=== PATIENT | male | born 1970 | race Caucasian/White ===

== ENCOUNTER 2016-06-18 14:03 | Inpatient (IN) | payer SELFPAY ==
[~2016-06-18] VITALS: Ht 180.3 cm; Wt 64.9 kg
[2016-06-18] VITALS (11 sets, daily range): BP systolic 91–127; BP diastolic 62–81
[2016-06-18] MEDS ORDERED: IV NORMAL SALINE 1000ML BAG 1,000 ML IV SCH (14:29)
[2016-06-18] MEDS ORDERED: INSULIN REGULAR 100 UNIT/ML 10ML VIAL. IV ONE (14:30)
[2016-06-18] MEDS ORDERED: IV NORMAL SALINE 1000ML BAG 1,000 ML IV ONE (14:30)
[2016-06-18] MEDS ORDERED: CALCIUM GLUCONATE 1,000 MG/10 ML VIAL IVP ONE (14:30)
[2016-06-18] MEDS ORDERED: DEXTROSE 50% 25 GM / 50ML DISP.SYRIN. IV ONE (14:30)
[2016-06-18 14:35] LABS: BASO # 0.2 x10^3/uL (0.0-0.2); BASO % 1 % (0-3); EOS % 0 % (0-3); HEMATOCRIT 41.9 % (39.0-53.0); HEMOGLOBIN 12.2 g/dL (13.0-17.5); LYMPH # 3.8 x10^3/uL (1.0-4.8); LYMPH % 21 % (24-48); MEAN CORPUSCULAR HEMOGLOBIN 24 pg (25-35); MEAN CORPUSCULAR HGB CONC 29 g/dL (31-37); MEAN CORPUSCULAR VOLUME 82 fL (79-100); MONO % 3 % (0-9); NEUT % 75 % (31-73); PLATELET COUNT 541 x10^3/uL (140-400); RED CELL DISTRIBUTION WIDTH 16.8 % (11.5-14.5); WHITE BLOOD COUNT 18.3 x10^3/uL (4.0-11.0)
[2016-06-18] MEDS ORDERED: SODIUM BICARBONATE VIAL 50 MEQ in IV DEXTROSE 5 %-0.45 % NACL 1,000 ML IV ONE (14:45)
--- NOTE | 2016-06-18 14:50 | RAD ---
Portable chest, 06/18/2016: History: Check tube placements An ET tube has its tip located 7 cm above the rosana. An NG tube extends into the proximal aspect of the stomach. A sidehole lies near the level of the GE junction. There is a moderate thoracic scoliosis. The heart size is normal. There are scattered nodular opacities in both lungs. There is no evidence of pleural fluid or pneumothorax. IMPRESSION: 1. Tube placements as described above. 2. Bilateral pulmonary nodules. Diagnostic considerations include metastatic disease or a multifocal infectious process such as septic emboli or fungal disease.
[2016-06-18 15:01] LABS: CREATININE 1.8 mg/dL (0.7-1.3); GFR 33.8
[2016-06-18 15:05] LABS: CALCIUM 12.6 mg/dL (8.5-10.1); POTASSIUM 7.6 mmol/L (3.5-5.1)
--- NOTE | 2016-06-18 15:10 | RAD ---
Indication found down. The head and cervical spine were evaluated. Images of the cervical spine were reformatted in the coronal and sagittal planes. No prior imaging is available. CT head: Findings The calvarium appears unremarkable. Visualized paranasal sinuses appear normal. In the right parietal temporal lobe there is a low-density mass measuring approximately 5.5 x 3.3 cm. There is some suggested minimal peripheral edema. There is associated mild effacement of the right lateral ventricle and there is slight right to left shift of approximately 4 mm. The etiology is unclear. Resolving hematoma, cystic neoplasm or abscess would be leading considerations. The finding does not have an acute appearance and is likely subacute to early chronic. An additional low-density mass occupying the left frontal lobe measuring 4 cm in greatest dimension is also seen. There is a possible mural nodule seen associated with this mass. A hyperdense component measuring 8 mm is seen associated with this left frontal lesion. The etiology here to is unclear. Resolving hematoma should be considered. Neoplastic disease or infection would also need to be considered. (Given the findings in the visualized chest neoplastic disease should be strongly considered). CT cervical spine: Findings. Imaging through the lung apices demonstrates multiple soft tissue masses in the visualized lung apices. The largest is at the left lung apex measuring 2.5 cm in greatest dimension with several smaller soft tissue nodules seen. The findings are very suggestive of neoplastic, likely metastatic, disease. There are some underlying emphysematous changes. Endotracheal and nasogastric tubes are noted. There are some degenerative changes in the cervical spine. An acute finding is seen. IMPRESSION: Low-density masses in the right temporal parietal and left frontal lobes as described. These findings do not have an acute appearance. Given the findings in the chest (suggesting neoplastic disease) metastatic disease should be strongly considered. Resolving hematomas or infection however are not excluded. No acute finding seen in the cervical spine PQRS Compliance Statement: One or more of the following individualized dose reduction techniques were utilized for this examination: 1. Automated exposure control 2. Adjustment of the mA and/or kV according to patient size 3. Use of iterative reconstruction technique
[2016-06-18] MEDS ORDERED: SODIUM BICARB ADULT 8.4% 50 MEQ/50 ML DISP.SYRIN. IV ONE (15:15)
[2016-06-18] MEDS ORDERED: DEXAMETHASONE SOD PHOS 20 MG/5 ML VIAL. IV ONE (15:15)
[2016-06-18] MEDS ORDERED: SODIUM BICARBONATE VIAL 150 MEQ in IV DEXTROSE 5 %-0.45 % NACL 1,000 ML IV ONE (15:15)
[2016-06-18 15:16] LABS: BARBITURATES NEG (NEG); BENZODIAZEPINES NEG (NEG); CANNABINOIDS NEG (NEG); COCAINE NEG (NEG); METHADONE NEG (NEG); OPIATES NEG (NEG); PHENCYCLIDINE NEG (NEG)
[2016-06-18 15:17] LABS: ETHANOL, URINE NEG (NEG)
[2016-06-18 15:19] LABS: HCO3 ABG 14 mmol/L (21-28); PCO2 ABG 31 mmHg (35-46); PH ABG 7.27 (7.35-7.45); PO2 ABG 70 mmHg (65-108); SAT O2 ABG 90 % (92-99)
[2016-06-18 15:24] LABS: INR 1.2 (0.8-1.1); PROTHROMBIN TIME PATIENT 14.7 SEC (11.7-14.0)
[2016-06-18 15:31] LABS: % BASOS 1 % (0-3); % EOS 1 % (0-5); PLT ESTIMATE INCREASED (ADEQUATE)
[2016-06-18 15:32] LABS: ANISOCYTOSIS SLIGHT; POIKILOCYTOSIS SLIGHT
[2016-06-18 15:33] LABS: HYPOCHROMIA SLIGHT
[2016-06-18] MEDS: LEVETIRACETAM 500 MG in IV NORMAL SALINE 100ML 100 ML IV SCH ×2 (15:38→21:59)
[2016-06-18] MEDS ORDERED: FENTANYL PF 100 MCG/2 ML VIAL. IV PRN (15:45)
[2016-06-18] MEDS ORDERED: LORAZEPAM 2 MG/ML VIAL IV ONE (15:45)
[2016-06-18] MEDS ORDERED: MIDAZOLAM PREMIX 100 ML IV ONE (15:45)
[2016-06-18] MEDS ORDERED: FENTANYL PF 100 MCG/2 ML VIAL. IV ONE (15:45)
[2016-06-18] MEDS ORDERED: ONDANSETRON PF 4 MG/2 ML VIAL. IV PRN ×2 (15:45→18:30)
--- NOTE | 2016-06-18 15:52 | PHYS DOC ---
Past Medical History Past Medical History: Unknown Past Surgical History: Other Additional Past Surgical Histo: UNKNOWN Alcohol Use: None Additional Information: UNKNOWN Adult General Chief Complaint Chief Complaint: SEIZURE HPI HPI This is a 45-year-old male who initially is admitted after being found down for an unknown amount of time with what appeared to be a head injury. Patient was using agonal respirations per EMS and was unresponsive. He arrived in agonal respirations and upon arrival had a seizure episode followed by agonal respirations and eventual respiratory arrest. Patient was immediately intubated and ACLS protocols were used after approximately 5 minutes of CPR, patient had a return of spontaneous circulation. Patient is currently unresponsive at this time and cannot provide any adequate history. Review of Systems Review of Systems A 10 point review of systems is unable to be obtained secondary to the patient' s underlying mental status. Current Medications Current Medications Current Medications Medications (Trade) Dose Ordered Sig/Heydi Start Time Stop Time Status Last Admin Dose Admin Calcium Gluconate 1000 mg 1,000 mg 1X ONCE 06/18/16 14:30 06/18/16 14:39 DC 06/18/16 15:30 1,000 MG Dexamethasone Sodium Phosphate (Decadron) 10 mg 1X ONCE 06/18/16 15:15 06/18/16 15:22 DC 06/18/16 15:51 10 MG Dextrose 25 gm 1X ONCE 06/18/16 14:30 06/18/16 14:39 DC 06/18/16 15:26 25 GM Fentanyl Citrate 50 mcg 50 mcg PRN Q2HR PRN 06/18/16 15:45 06/19/16 15:44 Insulin Human Regular (Novolin R Vial) 10 unit 1X ONCE 06/18/16 14:30 06/18/16 14:39 DC 06/18/16 15:29 10 UNIT Lorazepam 1 mg 1 mg 1X ONCE 06/18/16 15:45 06/18/16 15:46 DC 06/18/16 14:07 1 MG Midazolam HCl (Versed 100mg/ 100ml Premix) 100 ml @ 0 mls/hr 1X ONCE 06/18/16 15:45 06/18/16 15:46 DC 06/18/16 15:59 2 MLS/HR Ondansetron HCl (Zofran) 4 mg PRN Q8HRS PRN 06/18/16 15:45 06/19/16 15:44 Sodium Bicarbonate 50 meq/Dextrose/ Sodium Chloride 1,050 ml @ 125 mls/hr 1X ONCE 06/18/16 14:45 06/18/16 23:08 06/18/16 15:25 125 MLS/HR Sodium Bicarbonate/ Dextrose/Sodium Chloride (Iv D5% - 1/2 NS) 1,150 ml @ 125 mls/hr 1X ONCE 06/18/16 15:15 06/19/16 00:26 06/18/16 15:15 125 MLS/HR Sodium Bicarbonate 50 meq 1X ONCE 06/18/16 15:15 06/18/16 15:22 DC Sodium Chloride (Iv Sodium Chloride 0.9% 1000ml Bag) 1,000 ml @ 150 mls/hr Q6H40M 06/18/16 15:40 06/19/16 15:39 06/18/16 17:25 150 MLS/HR Allergies Allergies Physical Exam Physical Exam Constitutional: Well developed, well nourished, no acute distress, non-toxic appearance. [] HENT: Normocephalic, atraumatic, bilateral external ears normal, oropharynx moist, no oral exudates, nose normal. [] Eyes: PERRLA, EOMI, conjunctiva normal, no discharge. [] Neck: Normal range of motion, no tenderness, supple, no stridor. [] Cardiovascular:Heart rate regular rhythm, no murmur [] Lungs & Thorax: Bilateral breath sounds clear to auscultation [] Abdomen: Bowel sounds normal, soft, no tenderness, no masses, no pulsatile masses. [] Skin: Warm, dry, no erythema, no rash. [] Back: No tenderness, no CVA tenderness. [] Extremities: No tenderness, no cyanosis, no clubbing, ROM intact, no edema. [] Neurologic: Alert and oriented X 3, normal motor function, normal sensory function, no focal deficits noted. [] Psychologic: Affect normal, judgement normal, mood normal. [] Current Patient Data Vital Signs Vital Signs Date Time Temp Pulse Resp B/P Pulse Ox O2 Delivery O2 Flow Rate FiO2 06/18/16 15:48 104 26 101/58 93 Ventilator 50 06/18/16 14:04 97.9 97.9 Lab Values Laboratory Tests Test 06/18/16 14:20 06/18/16 14:25 06/18/16 14:26 06/18/16 14:45 White Blood Count 18.3x10^3/uL (4.0-11.0) H Red Blood Count 5.10x10^6/uL (4.30-5.70) Hemoglobin 12.2g/dL (13.0-17.5) L Hematocrit 41.9% (39.0-53.0) Mean Corpuscular Volume 82fL (79-100) Mean Corpuscular Hemoglobin 24pg (25-35) L Mean Corpuscular Hemoglobin Concent 29g/dL (31-37) L Red Cell Distribution Width 16.8% (11.5-14.5) H Platelet Count 541x10^3/uL (140-400) H Neutrophils (%) (Auto) 75% (31-73) H Lymphocytes (%) (Auto) 21% (24-48) L Monocytes (%) (Auto) 3% (0-9) Eosinophils (%) (Auto) 0% (0-3) Basophils (%) (Auto) 1% (0-3) Neutrophils # (Auto) 13.6x10^3uL (1.8-7.7) H Lymphocytes # (Auto) 3.8x10^3/uL (1.0-4.8) Monocytes # (Auto) 0.6x10^3/uL (0.0-1.1) Eosinophils # (Auto) 0.1x10^3/uL (0.0-0.7) Basophils # (Auto) 0.2x10^3/uL (0.0-0.2) Segmented Neutrophils % 62% (35-66) Band Neutrophils % 6% (0-9) Lymphocytes % 27% (24-48) Monocytes % 3% (0-10) Eosinophils % 1% (0-5) Basophils % 1% (0-3) Platelet Estimate Increased (ADEQUATE) Hypochromasia Slight Poikilocytosis Slight Anisocytosis Slight Prothrombin Time 14.7SEC (11.7-14.0) H Prothrombin Time INR 1.2 (0.8-1.1) H Sodium Level 146mmol/L (136-145) H Potassium Level 7.6mmol/L (3.5-5.1) *H Chloride Level 106mmol/L (98-107) Carbon Dioxide Level 19mmol/L (21-32) L Anion Gap 21 (6-14) H 23mmol/L (6-14) H Blood Urea Nitrogen 14mg/dL (8-26) Creatinine 1.8mg/dL (0.7-1.3) H Estimated GFR (Cockcroft-Gault) 33.8 Glucose Level 259mg/dL (70-99) H 245mg/dL (70-99) H Calcium Level 12.6mg/dL (8.5-10.1) *H Creatine Kinase 40U/L (39-308) Troponin I Quantitative < 0.017ng/mL (0.000-0.055) POC Troponin I 0.01ng/ml (<0.08) POC Hemoglobin 14.3g/dL (14-18) POC Hematocrit 42% (37-52) POC Sodium 148mmol/L (135-145) H POC Potassium 7.0mmol/L (3.5-5.0) H POC Chloride 113mmol/L (98-110) H POC Total CO2 20mmol/L (23-32) L POC Blood Urea Nitrogen 13mg/dL (8-26) POC Creatinine 1.2mg/dL (0.5-1.4) POC Ionized Calcium (Yuly) 1.52mmol/L (1.13-1.32) H Urine Opiates Screen Neg (NEG) Urine Methadone Screen Neg (NEG) Urine Barbiturates Neg (NEG) Urine Phencyclidine Screen Neg (NEG) Urine Amphetamine/Methamphetamine Neg (NEG) Urine Benzodiazepines Screen Neg (NEG) Urine Cocaine Screen Neg (NEG) Urine Cannabinoids Screen Neg (NEG) Urine Ethyl Alcohol Neg (NEG) Test 06/18/16 15:20 O2 Saturation 90% (92-99) L Arterial Blood pH 7.27 (7.35-7.45) L Arterial Blood pCO2 at Patient Temp 31mmHg (35-46) L Arterial Blood pO2 at Patient Temp 70mmHg (65-108) Arterial Blood HCO3 14mmol/L (21-28) L Arterial Blood Base Excess -12mmol/L (-3-3) L FiO2 40.0 Laboratory Tests 06/18/16 14:20 Laboratory Tests 06/18/16 14:20 06/18/16 14:26 EKG EKG EKG as interpreted by mi shows a sinus tachycardia with rate of 116 bpm with what appear to be some mild peaked T waves. There are no obvious ischemic findings. Intervals are normal. EKG does not meet STEMI criteria. Radiology/Procedures Radiology/Procedures One view of the chest as interpreted by the radiologist shows an ET tube located 7 cm above the rosana and an NG tube extending into the proximal aspect of the stomach. There are bilateral pulmonary nodules and diagnostic considerations include metastatic disease or a multifocal infectious process such as septic emboli or fungal disease. This was as interpreted by the radiologist. CT of the head and cervical spine without contrast demonstrated the following: Indication found down. The head and cervical spine were evaluated. Images of the cervical spine were reformatted in the coronal and sagittal planes. No prior imaging is available. CT head: Findings The calvarium appears unremarkable. Visualized paranasal sinuses appear normal. In the right parietal temporal lobe there is a low-density mass measuring approximately 5.5 x 3.3 cm. There is some suggested minimal peripheral edema. There is associated mild effacement of the right lateral ventricle and there is slight right to left shift of approximately 4 mm. The etiology is unclear. Resolving hematoma, cystic neoplasm or abscess would be leading considerations. The finding does not have an acute appearance and is likely subacute to early chronic. An additional low-density mass occupying the left frontal lobe measuring 4 cm in greatest dimension is also seen. There is a possible mural nodule seen associated with this mass. A hyperdense component measuring 8 mm is seen associated with this left frontal lesion. The etiology here to is unclear. Resolving hematoma should be considered. Neoplastic disease or infection would also need to be considered. (Given the findings in the visualized chest neoplastic disease should be strongly considered). CT cervical spine: Findings. Imaging through the lung apices demonstrates multiple soft tissue masses in the visualized lung apices. The largest is at the left lung apex measuring 2.5 cm in greatest dimension with several smaller soft tissue nodules seen. The findings are very suggestive of neoplastic, likely metastatic, disease. There are some underlying emphysematous changes. Endotracheal and nasogastric tubes are noted. There are some degenerative changes in the cervical spine. An acute finding is seen. IMPRESSION: Low-density masses in the right temporal parietal and left frontal lobes as described. These findings do not have an acute appearance. Given the findings in the chest (suggesting neoplastic disease) metastatic disease should be strongly considered. Resolving hematomas or infection however are not excluded. No acute finding seen in the cervical spine PQRS Compliance Statement: One or more of the following individualized dose reduction techniques were utilized for this examination: 1. Automated exposure control 2. Adjustment of the mA and/or kV according to patient size 3. Use of iterative reconstruction technique Course & Med Decision Making Course & Med Decision Making Pertinent Labs and Imaging studies reviewed. 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 The most likely sequence of events is that the patient had an ongoing mass in his brain, then had a seizure episode today in which he was found down for prolonged period of time. This is evidenced by the nature of the mass seen on CT as well as his chest film which is consistent with possible metastatic disease. Patient presented with respiratory failure and has obvious metabolic acidosis with a hyperkalemia after being found down from an unknown period of time. His EKG showed possible peaked T waves. Multiple amps of bicarbonate were given and a bicarbonate drip was started. Patient is given several fluid boluses as well to resolve his ongoing acidosis. Patient was given IV calcium, IV dextrose, IV insulin for his hyperkalemia. This was all consultation with the hebrew teacher, Dr. Ronquillo, who agreed with this plan. The neurosurgeon, Dr. Mack, was also paged and the case was discussed and he stated to load the patient with 10 of Decadron and to continue Decadron 4 mg every 6 hours. The case was also discussed with the neurologist, Dr. Dailey, who agreed to load the patient with IV Keppra for seizure prophylaxis. Patient was started on IV Versed drip and was given several doses of fentanyl as well for sedation. Patient had an arterial blood gas drawn that showed a acidosis with a pH of 7.27 and a PCO2 of 31 with a PO2 of 69. His bicarbonate was decreased at 14 which is consistent with a metabolic acidosis. He was admitted to the ICU after discussing the case with the hospitalist, Dr. Dunbar, who agreed with this assessment and plan. Approximately 60 minutes of critical care time were used in consultation with specialists. Dragon Disclaimer Dragon Disclaimer This electronic medical record was generated, in whole or in part, using a voice recognition dictation system. Critical Care Time Critical care time was 60 minutes exclusive of procedures. Intubation Procedure Intub Indication: Respiratory failure Consent: Unable to give consent due to emergent nature. Medications Used: see nursing note Procedure: The patient was placed in the appropriate position. Intubation was performed using direct laryngoscopy using a 8.0 endotracheal tube. ET tube adequately secured. Initial confirmation of placement included bilateral breath sounds, tube fogging, adequate chest rise, adequate pulse oximetry reading. A chest x-ray to verify correct placement of the tube showed appropriate tube position. The patient tolerated the procedure well. Complications: none. Departure Departure Impression: Primary Impression: Mass, brain Additional Impressions: Respiratory failure Acidosis Hyperkalemia Disposition: ADMITTED INPATIENT Admitting Physician: Farhan Dunbar Condition: CRITICAL Referrals: UNKNOWN PCP NAME (PCP) Problem Qualifiers TERESA RAE DO Jun 18, 2016 15:52
--- NOTE | 2016-06-18 15:57 | PDOC2 ---
NEUROLOGY CONSULT Date of Admission Date of Admission DATE: 06/18/16 TIME: 15:51 Reason for Consult Reason for Consult: seizure Referring Physician Referring Physician: Dr. Mcginnis Source Source: Chart review History of Present Illness History of Present Illness The patient was found down, unresponsive at an apartment complex. He had a seizure in the emergency department and was intubated. CT is abnormal as reviewed below. His further identity and history is unknown at this time. Family History Family History: No pertinent hx (unobtainable) Social History Social History unobtainable Current Medications Current Medications Current Medications Sodium Chloride 1,000 ml @ 1,000 mls/hr 1X ONCE IV Last administered on 14:51; Start 06/18/16 at 14:30; Stop 06/18/16 at 15:29; Status DC Sodium Chloride (Iv Sodium Chloride 0.9% 1000ml Bag) 1,000 ml @ 1,000 mls/hr Q1H IV ; Start 06/18/16 at 14:29; Stop 06/18/16 at 15:28; Status DC Dextrose 25 gm 1X ONCE IV Last administered on 06/18/16 15:26; Start at 14:30; Stop 06/18/16 at 14:39; Status DC Insulin Human Regular (Novolin R Vial) 10 unit 1X ONCE IV Last administered on 06/18/16 15:29; Start 06/18/16 at 14:30; Stop 06/18/16 at 14:39; Status DC Calcium Gluconate 1000 mg 1,000 mg 1X ONCE IVP Last administered on 06/18/16 15:30; Start 06/18/16 at 14:30; Stop 06/18/16 at 14:39; Status DC Sodium Bicarbonate 50 meq/Dextrose/ Sodium Chloride 1,050 ml @ 125 mls/hr 1X ONCE IV Last administered on 06/18/16 15:25; Start 06/18/16 at 14:45; Stop at 23:08 Sodium Bicarbonate/ Dextrose/Sodium Chloride (Iv D5% - 1/2 NS) 1,150 ml @ 125 mls/hr 1X ONCE IV Last administered on 06/18/16 15:15; Start 06/18/16 at 15: 15; Stop 06/19/16 at 00:26 Sodium Bicarbonate 50 meq 1X ONCE IV ; Start 06/18/16 at 15:15; Stop 06/18/16 at 15:22; Status DC Dexamethasone Sodium Phosphate (Decadron) 10 mg 1X ONCE IV ; Start 06/18/16 at 15:15; Stop 06/18/16 at 15:22; Status DC Dexamethasone Sodium Phosphate 4 mg 4 mg Q6HRS IV ; Start 06/18/16 at 18:00 Levetiracetam/ Sodium Chloride (Keppra/Iv Sodium Chloride 0.9% 100ml) 105 ml @ 400 mls/hr Q12HR IV ; Start 06/18/16 at 16:00 Lorazepam (Ativan) 1 mg 1X ONCE IV ; Start 06/18/16 at 15:45; Stop 06/18/16 at 15:46; Status DC Fentanyl Citrate 50 mcg 50 mcg 1X ONCE IV ; Start 06/18/16 at 15:45; Stop 06/18 at 15:46; Status DC Midazolam HCl (Versed 100mg/ 100ml Premix) 100 ml @ 0 mls/hr 1X ONCE IV ; Start 06/18/16 at 15:45; Stop 06/18/16 at 15:46; Status DC Ondansetron HCl (Zofran) 4 mg PRN Q8HRS PRN IV NAUSEA/VOMITING; Start 06/18/16 at 15:45; Stop 06/19/16 at 15:44; Status UNV Fentanyl Citrate 50 mcg 50 mcg PRN Q2HR PRN IV PAIN; Start 06/18/16 at 15:45; Stop 06/19/16 at 15:44; Status UNV Sodium Chloride (Iv Sodium Chloride 0.9% 1000ml Bag) 1,000 ml @ 150 mls/hr Q6H40M IV ; Start 06/18/16 at 15:40; Stop 06/19/16 at 15:39; Status UNV Allergies Allergies: Coded Allergies: Unable to Assess (Unverified , 06/18/16) ROS Review of System Unobtainable Physical Exam Physical Examination PHYSICAL EXAMINATION: Vital signs: see above. General appearance is normal and in no acute distress. HEENT: Normocephalic; abrasion lateral to left orbit. Eyes, nose, ears, and throat are unremarkable. Neck is supple. No lymphadenopathy. No bruits are heard over the carotid artery. No crepitus. NEUROLOGIC: Intubated, in emergency department. Pupils sluggishly reactive. No spontaneous extraocular movements. No pain response. Posturing noted. Vitals VITALS Vital Signs Date Time Temp Pulse Resp B/P Pulse Ox O2 Delivery O2 Flow Rate FiO2 06/18/16 14:43 97 Ventilator 06/18/16 14:04 97.9 72 02/07 97.9 Labs Labs Laboratory Tests Test 06/18/16 14:20 06/18/16 14:25 06/18/16 14:26 06/18/16 14:45 White Blood Count 18.3x10^3/uL (4.0-11.0) Red Blood Count 5.10x10^6/uL (4.30-5.70) Hemoglobin 12.2g/dL (13.0-17.5) Hematocrit 41.9% (39.0-53.0) Mean Corpuscular Volume 82fL (79-100) Mean Corpuscular Hemoglobin 24pg (25-35) Mean Corpuscular Hemoglobin Concent 29g/dL (31-37) Red Cell Distribution Width 16.8% (11.5-14.5) Platelet Count 541x10^3/uL (140-400) Neutrophils (%) (Auto) 75% (31-73) Lymphocytes (%) (Auto) 21% (24-48) Monocytes (%) (Auto) 3% (0-9) Eosinophils (%) (Auto) 0% (0-3) Basophils (%) (Auto) 1% (0-3) Neutrophils # (Auto) 13.6x10^3uL (1.8-7.7) Lymphocytes # (Auto) 3.8x10^3/uL (1.0-4.8) Monocytes # (Auto) 0.6x10^3/uL (0.0-1.1) Eosinophils # (Auto) 0.1x10^3/uL (0.0-0.7) Basophils # (Auto) 0.2x10^3/uL (0.0-0.2) Segmented Neutrophils % 62% (35-66) Band Neutrophils % 6% (0-9) Lymphocytes % 27% (24-48) Monocytes % 3% (0-10) Eosinophils % 1% (0-5) Basophils % 1% (0-3) Platelet Estimate Increased (ADEQUATE) Hypochromasia Slight Poikilocytosis Slight Anisocytosis Slight Prothrombin Time 14.7SEC (11.7-14.0) Prothromb Time International Ratio 1.2 (0.8-1.1) Sodium Level 146mmol/L (136-145) Potassium Level 7.6mmol/L (3.5-5.1) Chloride Level 106mmol/L (98-107) Carbon Dioxide Level 19mmol/L (21-32) Anion Gap 21 (6-14) 23mmol/L (6-14) Blood Urea Nitrogen 14mg/dL (8-26) Creatinine 1.8mg/dL (0.7-1.3) Estimated GFR (Cockcroft-Gault) 33.8 Glucose Level 259mg/dL (70-99) 245mg/dL (70-99) Calcium Level 12.6mg/dL (8.5-10.1) Creatine Kinase 40U/L (39-308) Troponin I Quantitative < 0.017ng/mL (0.000-0.055) Bedside Troponin I 0.01ng/ml (<0.08) Bedside Hemoglobin 14.3g/dL (14-18) Bedside Hematocrit 42% (37-52) Bedside Sodium 148mmol/L (135-145) Bedside Potassium 7.0mmol/L (3.5-5.0) Bedside Chloride 113mmol/L (98-110) Bedside Total CO2 20mmol/L (23-32) Bedside Blood Urea Nitrogen 13mg/dL (8-26) Bedside Creatinine 1.2mg/dL (0.5-1.4) Bedside Ionized Calcium (Yuly) 1.52mmol/L (1.13-1.32) Urine Opiates Screen Neg (NEG) Urine Methadone Screen Neg (NEG) Urine Barbiturates Neg (NEG) Urine Phencyclidine Screen Neg (NEG) Urine Amphetamine/Methamphetamine Neg (NEG) Urine Benzodiazepines Screen Neg (NEG) Urine Cocaine Screen Neg (NEG) Urine Cannabinoids Screen Neg (NEG) Urine Ethyl Alcohol Neg (NEG) Test 06/18/16 15:20 O2 Saturation 90% (92-99) Arterial Blood pH 7.27 (7.35-7.45) Arterial Blood pCO2 at Patient Temp 31mmHg (35-46) Arterial Blood pO2 at Patient Temp 70mmHg (65-108) Arterial Blood HCO3 14mmol/L (21-28) Arterial Blood Base Excess -12mmol/L (-3-3) FiO2 40.0 Laboratory Tests Test 06/18/16 14:20 06/18/16 14:25 06/18/16 14:26 06/18/16 14:45 White Blood Count 18.3x10^3/uL (4.0-11.0) Red Blood Count 5.10x10^6/uL (4.30-5.70) Hemoglobin 12.2g/dL (13.0-17.5) Hematocrit 41.9% (39.0-53.0) Mean Corpuscular Volume 82fL (79-100) Mean Corpuscular Hemoglobin 24pg (25-35) Mean Corpuscular Hemoglobin Concent 29g/dL (31-37) Red Cell Distribution Width 16.8% (11.5-14.5) Platelet Count 541x10^3/uL (140-400) Neutrophils (%) (Auto) 75% (31-73) Lymphocytes (%) (Auto) 21% (24-48) Monocytes (%) (Auto) 3% (0-9) Eosinophils (%) (Auto) 0% (0-3) Basophils (%) (Auto) 1% (0-3) Neutrophils # (Auto) 13.6x10^3uL (1.8-7.7) Lymphocytes # (Auto) 3.8x10^3/uL (1.0-4.8) Monocytes # (Auto) 0.6x10^3/uL (0.0-1.1) Eosinophils # (Auto) 0.1x10^3/uL (0.0-0.7) Basophils # (Auto) 0.2x10^3/uL (0.0-0.2) Segmented Neutrophils % 62% (35-66) Band Neutrophils % 6% (0-9) Lymphocytes % 27% (24-48) Monocytes % 3% (0-10) Eosinophils % 1% (0-5) Basophils % 1% (0-3) Platelet Estimate Increased (ADEQUATE) Hypochromasia Slight Poikilocytosis Slight Anisocytosis Slight Prothrombin Time 14.7SEC (11.7-14.0) Prothromb Time International Ratio 1.2 (0.8-1.1) Sodium Level 146mmol/L (136-145) Potassium Level 7.6mmol/L (3.5-5.1) Chloride Level 106mmol/L (98-107) Carbon Dioxide Level 19mmol/L (21-32) Anion Gap 21 (6-14) 23mmol/L (6-14) Blood Urea Nitrogen 14mg/dL (8-26) Creatinine 1.8mg/dL (0.7-1.3) Estimated GFR (Cockcroft-Gault) 33.8 Glucose Level 259mg/dL (70-99) 245mg/dL (70-99) Calcium Level 12.6mg/dL (8.5-10.1) Creatine Kinase 40U/L (39-308) Troponin I Quantitative < 0.017ng/mL (0.000-0.055) Bedside Troponin I 0.01ng/ml (<0.08) Bedside Hemoglobin 14.3g/dL (14-18) Bedside Hematocrit 42% (37-52) Bedside Sodium 148mmol/L (135-145) Bedside Potassium 7.0mmol/L (3.5-5.0) Bedside Chloride 113mmol/L (98-110) Bedside Total CO2 20mmol/L (23-32) Bedside Blood Urea Nitrogen 13mg/dL (8-26) Bedside Creatinine 1.2mg/dL (0.5-1.4) Bedside Ionized Calcium (Yuly) 1.52mmol/L (1.13-1.32) Urine Opiates Screen Neg (NEG) Urine Methadone Screen Neg (NEG) Urine Barbiturates Neg (NEG) Urine Phencyclidine Screen Neg (NEG) Urine Amphetamine/Methamphetamine Neg (NEG) Urine Benzodiazepines Screen Neg (NEG) Urine Cocaine Screen Neg (NEG) Urine Cannabinoids Screen Neg (NEG) Urine Ethyl Alcohol Neg (NEG) Test 06/18/16 15:20 O2 Saturation 90% (92-99) Arterial Blood pH 7.27 (7.35-7.45) Arterial Blood pCO2 at Patient Temp 31mmHg (35-46) Arterial Blood pO2 at Patient Temp 70mmHg (65-108) Arterial Blood HCO3 14mmol/L (21-28) Arterial Blood Base Excess -12mmol/L (-3-3) FiO2 40.[address] head: Findings The calvarium appears unremarkable. Visualized paranasal sinuses appear normal. In the right parietal temporal lobe there is a low-density mass measuring approximately 5.5 x 3.3 cm. There is some suggested minimal peripheral edema. There is associated mild effacement of the right lateral ventricle and there is slight right to left shift of approximately 4 mm. The etiology is unclear. Resolving hematoma, cystic neoplasm or abscess would be leading considerations. The finding does not have an acute appearance and is likely subacute to early chronic. An additional low-density mass occupying the left frontal lobe measuring 4 cm in greatest dimension is also seen. There is a possible mural nodule seen associated with this mass. A hyperdense component measuring 8 mm is seen associated with this left frontal lesion. The etiology here to is unclear. Resolving hematoma should be considered. Neoplastic disease or infection would also need to be considered. (Given the findings in the visualized chest neoplastic disease should be strongly considered). CT cervical spine: Findings. Imaging through the lung apices demonstrates multiple soft tissue masses in the visualized lung apices. The largest is at the left lung apex measuring 2.5 cm in greatest dimension with several smaller soft tissue nodules seen. The findings are very suggestive of neoplastic, likely metastatic, disease. There are some underlying emphysematous changes. Endotracheal and nasogastric tubes are noted. There are some degenerative changes in the cervical spine. An acute finding is seen. IMPRESSION: Low-density masses in the right temporal parietal and left frontal lobes as described. These findings do not have an acute appearance. Given the findings in the chest (suggesting neoplastic disease) metastatic disease should be strongly considered. Resolving hematomas or infection however are not excluded. No acute finding seen in the cervical spine Assessment/Plan Assessment/Plan Impression: Brain mets. Also consider infectious process or multiple old strokes, unlikely Recommendations: IV levetiracetam Decadron Neurosurgery following, discussed with Dr. Mack Once stabilized, CT of chest/abdomen/pelvis, brain MRI ICU care Thank you for letting me help with the patient's care. JERI HAYES MD Jun 18, 2016 15:57
[2016-06-18] MEDS: IV NORMAL SALINE 1000ML BAG 1,000 ML IV SCH ×2 (17:25→21:59)
--- NOTE | 2016-06-18 18:15 | ACF ---
Admission Forms Criteria INTENSIVE CARE UNIT ADMISSION Intensive Care Admission Guidelines ( Place 'X' for any and all applicable criteria): Admission to ICU may be indicated when need is demonstrated by ANY ONE of the following (1)(2)(3)(4)(5)(6)(7)(8)(9) : [ ]I. Vital sign abnormalities, including ANY ONE of the following: [ ]a) Systolic arterial pressure less than 90 mm Hg, or 20 mm Hg below the patient's usual pressure [ ]b) Diastolic arterial pressure greater than 120 mm Hg [ ]c) Mean arterial pressure less than 70 mm Hg [A] [ ]d) Pulse less than 40 or greater than 140 beats per minute (in adult) [ ]e) Respiratory rate greater than 35 or less than 8 breaths per minute [X]II. Laboratory findings (new), including ANY ONE of the following (10): [ ]a) Saturation of arterial oxygen less than 88% or partial pressure of oxygen less than 60 mm Hg (8.0 kPa) despite oxygen supplementation [ ]b) Rising partial pressure of carbon dioxide with respiratory acidosis [ ]c) pH less than 7.2 or greater than 7.65 [ ]d) Serum glucose greater than 800 mg/dL (44.4 mmol/L) [ ]e) Serum sodium less than 110 mEq/L (mmol/L) or greater than 160 mEq/L (mmol/L) [X]f) Serum potassium less than 2 mEq/L (mmol/L) or greater than 7 mEq /L (mmol/L) [ ]g) Serum calcium greater than 15 mg/dL (3.75 mmol/L) [ ]h) Serum phosphorus less than 1 mg/dL (0.32 mmol/L) [ ]i) Toxic drug level or poisoning causing or likely to cause neurologic or Hemodynamic instability [ ]j) Less severe laboratory abnormalities contributing to ANY ONE of the following: [ ]i) Seizure [ ]ii) Altered mental status [ ]iii) Muscle weakness [ ]iv) Arrhythmias [ ]v) Hemodynamic instability [ ]vi) Other significant clinical manifestations [ ]III. Electrocardiogram (or cardiac monitoring) findings, including ANY ONE of the following: [ ]a) Inherently unstable or life-threatening arrhythmia (eg, sustained ventricular tachycardia, ventricular fibrillation, asystole) [ ]b) Arrhythmia causing severe hypotension (eg, bradycardia, tachycardia) [ ]c) Complete heart block causing severe hypotension [ ]d) Other findings indicative of a need for intensive care (eg , [place]) [ ]IV.Physical findings, including ANY ONE of the following: [ ]a) Threatened airway [ ]b) Sudden altered mental status [ ]c) Repeated or prolonged seizures [ ]d) Coma [ ]e) New-onset anuria (urine output <0.1 mL/kg/hr over 4 h) [ ]f) Cyanosis (new) [ ]g) Cardiac tamponade [ ]h) Status post respiratory or cardiac arrest [ ]i) Severe branham (eg, partial thickness branham over more than 10% of body surface, third-degree branham) [ ]j) Findings consistent with abdominal emergency (eg, peritoneal signs) [ ]V.Imaging findings, such as dissecting aneurysm or ruptured viscus [ ].Specific intervention or monitoring needed, as indicated by ANY ONE of the following: [ ]a) New need for assisted ventilation, invasive or noninvasive(11) [ ]b) New need for intubation (eg, to protect airway) [ ]c) New tracheostomy (less than 48 hours old) [ ]d) Hourly vital signs or neurologic checks [ ]e) Pulmonary artery line monitoring needed [ ]f) Continuous arterial line monitoring needed [ ]g) Continuous IV vasoactive drugs [ ]h) Continuous IV antiarrhythmics [ ]i) Large volume IV fluid resuscitation (eg, greater than 6 L per day ) [ ]j) Large or rapid transfusion needs (eg, more than 6 units within 24 hours) [ ]k) High-risk IV treatment, such as bolus IV medicatns or mannitol infusion [ ]l) Acute cardiac pacing [ ]m) Intra-aortic balloon pump [ ]n) Ventricular assist device [ ]o) Cardioversion [ ]p) Pericardiocentesis [ ]q) Hemodialysis in unstable patient [ ]r) Continuous renal replacement therapy (eg, continuous veno-venous hemofiltration) [ ]s) Peritoneal dialysis initiation [ ]t) Emergency bronchoscopic therapy (eg, for hemoptysis) [ ]u) Emergency endoscopic therapy for bleeding [ ]v) Balloon tamponade for variceal bleeding [ ]w) Intracranial pressure monitoring or tissue oxygen monitoring [ ]x) Ventriculostomy monitoring [ ]y) Treatment of ongoing seizures [ ]z) Induced hypothermia or coma [ ]aa) Ongoing frequent testing and treatment for acute conditions, including ANY ONE of the following: [ ]i) Correction of severe metabolic acidosis/ alkalosis [ ]ii). Severe fluid overload [ ]iii) Cerebral edema [ ]iv) Monitoring or suctioning for respiratory insufficiency or acidosis [ ]v) Monitoring for active bleeding [ ]bb) Rapid desensitization for high-risk hypersensitivity reaction to required medication (eg, penicillin)(12) [ ]cc) Other need for treatment or monitoring not available outside the ICU [ ]VII.Cardiology diagnoses or procedures, including ANY ONE of the following (13)(14)(15)(16)(17): [ ]a) Chest pain with ANY ONE of the following: [ ]i) Hemodynamic instability [ ]ii) Suspicion of diagnoses needing ICU care (eg, aortic dissection) [ ]iii) New unstable or symptomatic arrhythmia or ECG finding (eg, ventricular tachycardia, ventricular fibrillation, advanced heart block) [ ]iv) Syncope or near-syncope [ ]v) SBP less than 100 mm Hg [ ]vi) Pulmonary edema thought to be due to ischemia [ ]vii) New or worsening mitral regurgitation murmur, S3 , or rales [ ]b) Acute [place] with complications as indicated by ANY ONE of the following: [ ]i) Persistent chest pain [ ]ii) Hemodynamic instability [ ]iii) New unstable or symptomatic arrhythmia or ECG finding (eg, ventricular tachycardia, ventricular fibrillation, advanced heart block) [ ]iv) Syncope or near-syncope [ ]v) Pulmonary edema thought to be due to ischemia [ ]vi) New or worsening mitral regurgitation murmur, S3 , or rales [ ]vii) New-onset bundle branch block [ ]viii) Hemorrhagic complication (eg, intracranial or access site bleed following thrombolysis) [ ]c) Cardiac arrhythmia or conduction defect with Hemodynamic instability [ ]d) Complication of cardiac ablation, including ANY ONE of the following(18): [ ]i) Pericardial tamponade [ ]ii) Hemodynamic instability [ ]iii) Thromboembolic stroke [ ]iv) Aortic valve injury [ ]v) Vascular injuries [ ]vi) Esophageal perforation [ ]vii) Severe arrhythmia [ ]viii) Air embolism [ ]ix) Other severe complication [ ]e) Cardiogenic shock [ ]f) Hypertensive emergency, with need for ANY ONE of the following(19): [ ]i) IV antihypertensive therapy [ ]ii) Invasive hemodynamic monitoring (eg, arterial line) [ ]g) Pericardial tamponade [ ]h) Severe heart failure, with ANY ONE of the following(15): [ ]i) Respiratory failure [ ]ii) Cardiogenic shock [ ]iii) Severe arrhythmias [ ]iv) Evidence of cardiac ischemia [ ]i Myocarditis, with ANY ONE of the following [ ]i) Hemodynamic instability [ ]ii) Respiratory failure [ ]iii) Severe arrhythmias [ ]iv) Need for cardiac assist device (eg, left ventricular assist device or extracorporeal membrane oxygenator) [ ]j) Status post cardiac arrest(20) [ ]VIII. Cardiovascular Surgery diagnoses or procedures, including ANY ONE of the following.(21)(22): [ ]a) Acute aortic dissection [ ]b) Aortic surgery for ANY ONE of the following: [ ]i) Thoracic aneurysm [ ]ii) Abdominal aneurysm with ANY ONE of the following(23): [ ]1) Emergency repair [ ]2) Severe cardiopulmonary disease [ ]3) Dialysis-dependent renal failure [ ]4) Need for IV blood pressure control [ ]5) Need for ongoing ventilatory support [ ]6) Perioperative complications, including ANY ONE of the following: [ ]A. Sustained Hemodynamic instability [ ]B. Cardiac ischemia or arrhythmia [ ]C. Hypothermia (less than 35 degrees C (95 degrees F)) [ ]D. Blood transfusion greater than 3 L [ ]iii) Aortic coarctation operative excision or repair [ ]iv) Aortofemoral or aortoiliac bypass with ANY ONE of the following: [ ]1) Continued intubation [ ]2) Hemodynamic instability [ ]3) Need for IV blood pressure control [ ]4) Severe cardiopulmonary disease [ ]c) Cardiac surgery [ ]d) Carotid endarterectomy or stent placement with ANY ONE of the following: [ ]i) Blood pressure <100/60 mm Hg or >160/90 mm Hg despite 4 h of postanesthetic management [ ]ii) New or progressive neurologic defect [ ]iii) Chest pain [ ]iv) Continued intubation [ ]v) Heart failure [ ]vi) Airway compromise by hematoma or vocal cord paralysis [ ]vi) Need for IV blood pressure control [ ]e) Heart transplant [ ]f) Infrainguinal peripheral vascular surgery with ANY ONE of the following: [ ]i) Hemodynamic instability [ ]ii) Acute complications such as persistent chest pain or respiratory distress [ ]iii) Requirement for IV antiarrhythmic or vasoactive agent [ ]iv) Requirement for pulmonary artery catheter [ ]v) Severe hypertension despite 6 hours of recovery room management [ ]g) Complications of any surgery requiring ICU intervention as indicated by ANY ONE of the following(24): [ ]i) Hemodynamic instability [ ]ii) Myocardial infarction with complications (eg, severe arrhythmia, hypotension) [ ]iii) Excessive bleeding or severe coagulopathy [ ]iv) Respiratory failure [ ]v) Renal failure [ ]vi) Airway instability or obstruction [ ]vii) Neurologic deterioration [ ]viii) Infection with likelihood of sepsis syndrome or significant fluid shifts [ ]IX.Endocrinology diagnoses or procedures, including ANY ONE of the following(25)(26): [ ]a) Adrenal crisis with Hemodynamic instability(27) [ ]b) Pheochromocytoma with ANY ONE of the following(28): [ ]i) Hypertensive crisis [ ]ii) Postoperative Hemodynamic instability [ ]iii) Need for IV vasoactive therapy [ ]iv) Need for invasive arterial or central venous pressure monitoring [ ]v) Organ ischemia [ ]c) Diabetic hyperosmolar state with obtundation or coma [ ]d) Diabetic ketoacidosis with ANY ONE of the following: [ ]i) Serum pH less than 7.10 or bicarbonate level less than 10 mEq/L (mmol/L) [ ]ii) Rapidly changing electrolytes [ ]iii) Hypotension [ ]iv) Requirement for large-volume fluid resuscitation [ ]v) Respiratory insufficiency [ ]vi) Life-threatening cardiac dysrhythmias [ ]vii) Obtundation [ ]viii) Severe precipitating condition such as sepsis, stroke, or acute [place] [ ]e) Severe hypoglycemia requiring continuous glucose infusion with frequent adjustment or glucagon infusion [ ]f) Hyperthyroidism associated with thyroid storm (also known as thyrotoxic crisis)(29) [ ]g) Myxedema with life-threatening neurologic, cardiovascular, electrolyte, or renal dysfunction(29) [ ]h) Diabetes insipidus that cannot be controlled with routine medication (30) [ ]X. Gastroenterology diagnoses or procedures, including ANY ONE of the following: [ ]a) Esophageal perforation(31) [ ]b) Severe caustic esophageal injury(31) [ ]c) Liver disease complications with ANY ONE of the following(32): [ ]i) Severe hepatic encephalopathy (eg, stage 3 (somnolent) or higher) [ ]ii) Type 1 hepatorenal syndrome [ ]iii) Other cirrhosis-associated causes of acute renal failure ( eg, severe hypovolemia, acute tubular necrosis, abdominal compartment syndrome) [ ]iv) Hemodynamic instability [ ]v) Respiratory insufficiency due to severe ascites [ ]vi) Sepsis due to spontaneous bacterial peritonitis [ ]d) Fulminant hepatic failure when aggressive intervention or transplant is anticipated (32) [ ]e) Gastrointestinal hemorrhage (upper or lower) with ANY ONE of the following(33)(34): [ ]i) Active ongoing bleeding [ ]ii) Transfusion requirement greater than 2 units of packed red cells [ ]iii) Bleeding ulcer or nonbleeding visible vessel seen on endoscopy [ ]iv) Bleeding ulcer, visible blood vessel, bleeding (or recently bleeding) esophageal varices seen on endoscopy [ ]v) Hypotension [ ]vi) Syncope [ ]vii) Coagulopathy [ ]viii) Hepatic cirrhosis [ ]ix) Abnormal mental status [ ]x) Unstable comorbid condition or end organ dysfunction [ ]xi) Ischemia due to poor perfusion [ ]xii) Need for hemodynamic monitoring (eg, for patients with heart failure or valvular disease) [ ]f) Severe pancreatitis indicated by ANY ONE of the following (35)(36): [ ]i) Requirement for aggressive fluid resuscitation [ ]ii) Life-threatening electrolyte abnormality [ ]iii) SBP less than 90 mm Hg [ ]iv) Persistent tachycardia greater than 120 beats per minute [ ]v) Patients at high risk of rapid deterioration, including ANY ONE of the following: [ ]1) Calculated Hopi II score greater than 8 [ ]2) Age older than 55 years [ ]3) BMI greater than 30 [ ]4) Greater than 30% pancreatic necrosis on CT scan [ ]5) Admission hematocrit greater than 47% (0.47) [ ]vi) Organ failure as indicated by ANY ONE of the following: [ ]1) Serum creatinine greater than 1.9 mg/dL (168 micromoles/L) [ ]2) Requirement for mechanical ventilation [ ]3) Urine output less than 50 mL/hour [ ]4) Arterial partial pressure of oxygen less than 60 mm Hg (8.0 kPa) despite supplemental oxygen [ ]5) PiO2/FiO2 ratio less than 300 [ ]vii) Expanding pseudocyst [ ]viii) Infected pancreas [ ]ix) Pleural effusion [ ]x) Encephalopathy [ ]xi) Severe comorbidities [ ]XI. General Surgery diagnoses or procedures, including ANY ONE of the following (9)(24)(37): [ ]a) Acute abdominal catastrophe (eg, ischemic bowel, perforated viscus, abdominal compartment syndrome) [ ]b) Complications of any surgery requiring ICU intervention as indicated by ANY ONE of the following: [ ]i) Hemodynamic instability [ ]ii) [place] with complications (eg, severe arrhythmia, hypotension) [ ]iii) Excessive bleeding or severe coagulopathy [ ]iv) Respiratory failure [ ]v) Renal failure [ ]vi) Airway instability or obstruction [ ]vii) Neurologic deterioration [ ]viii) Infection with likelihood of sepsis syndrome or significant fluid shifts [ ]c) Multiple trauma with complicating features as indicated by ANY ONE of the following(38): [ ]i) Impending acute respiratory failure due to lung contusion, unstable chest wall, aspiration, or hemorrhage [ ]ii) Facial or neck injury threatening airway patency [ ]iii) Cardiac contusion [ ]iv) Pericardial effusion [ ]v) Bronchial tear [ ]vi) Hemodynamic instability [ ]vii) Rhabdomyolisis requiring large volume IV fluid resuscitation [ ]viii)Other significant complicating feature [ ]d) Organ transplant(39)(40) [ ]e) Esophagectomy(31) [ ]f) Whipple procedure [ ]g) Preoperative or postoperative patients requiring ICU intervention, such as hemodynamic optimization, pulmonary artery monitoring, mechanical ventilation, or extensive nursing care [ ]h) Obesity surgery patients with ANY ONE of the following(41): [ ]i) ICU management needs for comorbid conditions, such as sleep apnea or airway management needs [ ]ii) Failed postoperative extubation [ ]iii) Intraoperative complications [ ]XII. Nephrology diagnoses or procedures, including acute, or acute on chronic renal insufficiency with ANY ONE of the following(44)(45): [ ]a) Life-threatening electrolyte or acid-base disorder [ ]b) Acute pulmonary edema [ ]c) Hypotension or significant volume depletion [ ]d) Hypertensive emergency [ ]e) Underlying critical illness contributing to renal failure (eg, septic shock, hepatorenal syndrome) [ ]f) Need for continuous renal replacement therapy [ ]XIII. Neurology diagnoses or procedures, including ANY ONE of the following (46)(47) [B] : [ ]a) Intracranial hypertension requiring ANY ONE of the following(49 ): [ ]i) Induced barbiturate coma [ ]ii) Pharmacologic paralysis or deep sedation and mechanical ventilation [ ]iii) Intracranial pressure or cerebral perfusion pressure monitoring [ ]iv) IV mannitol or hypertonic saline [ ]v) Frequent serum osmolality measurements [ ]b) Seizures with ANY ONE of the following(50): [ ]i) Status epilepticus [ ]ii) Airway compromise requiring or likely to require mechanical ventilation [ ]iii) Severe electrolyte abnormalities causing seizures [ ]c) Progressive acute neurologic dysfunction requiring or likely to require ANY ONE of the following: [ ]i) Mechanical ventilation [ ]ii) Intracranial pressure or cerebral perfusion pressure monitoring [ ]d) Meningitis with obtundation or respiratory insufficiency [C])(51 ) [ ]e) Stroke with ANY ONE of the following(52)(53): [ ]i) Need for observation after thrombolysis [ ]ii) Altered mental status [ ]iii) Need for mechanical ventilation [ ]iv) Elevated intracranial pressure [ ]v) Hypertensive emergency [ ]vi) High risk of progressive infarction or deterioration based on CT scan or MRI [ ]vii) Hemorrhage [ ]f) Acute coma [ ]g) Acute spontaneous intracranial hemorrhage(53)(54) [ ]h) Drug ingestion with ANY ONE of the following(56)(57): [ ]i) Hemodynamic instability [ ]ii) Respiratory depression (partial pressure of carbon dioxide >45 mm Hg (6.0 kPa), new) [ ]iii) Patient requires or is likely to require mechanical ventilation. [ ]iv) Arrhythmias [ ]v) Seizures [ ]vi) Altered mental status ([place] coma scale score less than 12, new) [ ]vii) Significant risk for acute deterioration (eg, toxic level of hypotension or arrhythmia-producing drug) [ ]viii) Drug-induced hypothermia or hyperthermia [ ]ix) Increasing metabolic acidosis [ ]x) Severe hypoglycemia requiring glucose infusion with frequent adjustment or glucagon administration [ ]xi) Ongoing antidote administration (eg, continuous naloxone infusion, organophosphate toxicity treatment) [ ]xii) Emergency intervention need (eg, dialysis, hemoperfusion, restraints) [ ]i) Brain with preparation for organ donation [ ]j) Traumatic brain injury with ANY ONE of the following(55): [ ]i) Altered mental status (eg, new onset Venkatesh coma scale score less than 10) [ ]ii) Cerebral edema [ ]iii) Cerebral hemorrhage [ ]iv) Increased intracranial pressure [ ]XIV. Neurosurgery diagnoses or procedures, including ANY ONE of the following(49)(58)(59): [ ]a) Emergency craniotomy for tumor, hematoma, or trauma [ ]b) Elective craniotomy for posterior fossa tumor [ ]c) Elective craniotomy (supratentorial) for tumor with ANY ONE of the following: [ ]i) Postoperative neurologic deficit or impaired consciousness 6 hours after completion of procedure [ ]ii) SBP less than 110 mm Hg or greater than 180 mm Hg despite therapy [ ]iii) Extensive operative blood loss [ ]iv) High anesthesia risk (eg, [place] [employer] score greater than 3 [ ]d) Craniotomy for aneurysm with ANY ONE of the following: [ ]i) Postoperative neurologic deficit or impaired consciousness 6 hours after completion of procedure [ ]ii) Preoperative Saeed-Hay grade 3 or higher [ ]iii) SBP less than 110 mm Hg or greater than 180 mm Hg despite therapy [ ]iv) Intracranial pressure monitoring [ ]e) Acute spinal cord injury [ ]f) Subarachnoid hemorrhage [ ]g) Traumatic brain injury with ANY ONE of the following: [ ]i) Acute mental status change (Venkatesh coma scale score less than 10) [ ]ii) CT scan showing cerebral edema or hemorrhage [ ]iii) Intracranial pressure monitoring [ ]h) Complications of any surgery requiring ICU intervention as indicated by ANY ONE of the following(60): [ ]i) Hemodynamic instability [ ]ii) [place] with complications (eg, severe arrhythmia, hypotension) [ ]iii) Excessive bleeding or severe coagulopathy [ ]iv) Respiratory failure [ ] v) Renal failure [ ]vi) Airway instability or obstruction [ ]vii) Neurologic deterioration [ ]viii) Infection with likelihood of sepsis syndrome or significant fluid shifts [ ]i) Preoperative or postoperative patients requiring ICU intervention, such as hemodynamic optimization, pulmonary artery monitoring, mechanical ventilation, or extensive nursing care [ ]XV.Obstetrics and Gynecology diagnoses or procedures, including ANY ONE of the ffg. (61)(62)(63): [ ]a) Severe peripartum condition as indicated by ANY ONE of the following: [ ]i) Eclampsia [ ]ii) Hypertensive emergency [ ]iii) HELLP syndrome (hemolysis, elevated liver enzymes, and low platelet count) [ ]iv) Pulmonary edema [ ]v) Respiratory failure [ ]vi) Pulmonary embolism [ ]vii) Anaphylactoid syndrome of (amniotic fluid embolus) [ ]viii) Ovarian hyperstimulation syndrome [D] [ ]ix) Acute fatty liver of (hepatic failure) [ ]x) Complications such as placental abruption or severe hemorrhage [ ]xi) Sepsis (eg, puerperal sepsis, chorioamnionitis, septic ) [ ]xii) cardiomyopathy with severe congestive heart failure (eg, respiratory failure, cardiogenic shock) [ ]b) Ruptured ectopic [ ]c) Complications of any surgery requiring ICU intervention as indicated by ANY ONE of the following: [ ]i) Hemodynamic instability [ ]ii) [place] with complications (eg, severe arrhythmia, hypotension) [ ]iii) Excessive bleeding or severe coagulopathy [ ]iv) Respiratory failure [ ]v) Renal failure [ ]vi) Airway instability or obstruction [ ]vii) Neurologic deterioration [ ]viii) Infection with likelihood of sepsis syndrome or significant fluid shifts [ ]d) Preoperative or postoperative patients requiring ICU intervention , such as hemodynamic optimization, pulmonary artery monitoring, mechanical ventilation, or extensive nursing care [ ]XVI.Ophthalmology diagnoses or procedures, including ANY ONE of the following (64): [ ]a) Complications of any surgery requiring ICU intervention, such as ANY ONE of the following: [ ]i) Hemodynamic instability [ ]ii) [place] with complications (eg, severe arrhythmia, hypotension) [ ]iii) Excessive bleeding or severe coagulopathy [ ]iv) Respiratory failure [ ]v) Renal failure [ ]vi) Airway instability or obstruction [ ]vii) Neurologic deterioration [ ]viii) Infection with likelihood of sepsis syndrome or significant fluid shifts [ ]b) Preoperative or postoperative patients requiring ICU intervention , such as hemodynamic optimization, pulmonary artery monitoring, mechanical ventilation, or extensive nursing care [ ]XVII.Orthopedics diagnoses or procedures, including ANY ONE of the following [phone]): [ ]a) Complications of any surgery requiring ICU intervention as indicated by ANY ONE of the following: [ ]i) Hemodynamic instability [ ]ii) [place] with complications (eg, severe arrhythmia, hypotension) [ ]iii) Excessive bleeding or severe coagulopathy [ ]iv) Respiratory failure [ ]v) Renal failure [ ]vi) Airway instability or obstruction [ ] vii) Neurologic deterioration [ ]viii) Infection with likelihood of sepsis syndrome or significant fluid shifts [ ]b) Multiple trauma with complicating features as indicated by ANY ONE of the following(38): [ ]i) Impending acute respiratory failure due to lung contusion, unstable chest wall, pneumothorax, aspiration, or hemorrhage [ ]ii) Facial or neck injury threatening airway patency [ ]iii) Cardiac contusion [ ]iv) Rhabdomyolysis requiring large volume IV fluid resuscitation [ ]v) Pericardial effusion [ ]vi) Bronchial tear [ ]vii) Hemodynamic instability [ ]viii) Other significant complicating feature [ ]c) Threatened compartment syndrome [ ]d) Severe branham with ANY ONE of the following(68)(69)(70): [ ]i) Hypotension or requirement for aggressive fluid resuscitation [ ]ii) Respiratory insufficiency with requirement for high- flow oxygen or mechanical ventilation [ ]iii) Carbon monoxide poisoning [ ]iv) Life-threatening cardiac, renal, pulmonary, or neurologic dysfunction [ ]v) High-voltage (eg, 1000 volts or more) electrical burn [ ]vi) Requirement for frequent or intensive debridement and dressing changes; examples include: [ ]1) Partial thickness branham greater than 10% of body surface [ ]2) Branham on face, hands, feet, genitalia, perineum , or major joints [ ]3) Third-degree branham [ ]4) Any burn greater than 15% of body surface area [ ]vii) Inhalation lung injury [ ]viii) Concomitant trauma or other medical condition requiring ICU care [ ]e) Preoperative or postoperative patients requiring ICU intervention , such as hemodynamic optimization, pulmonary artery monitoring, mechanical ventilation, or extensive nursing care [ ]XVIII.Otolaryngology diagnoses or procedures, including ANY ONE of the following (71)(72): [ ]a) Complications of any surgery requiring ICU intervention as indicated by ANY ONE of the following: [ ]i) Hemodynamic instability [ ]ii) [place] with complications (eg, severe arrhythmia, hypotension) [ ]iii) Excessive bleeding or severe coagulopathy [ ]iv) Respiratory failure [ ]v) Renal failure [ ]vi) Airway instability or obstruction [ ]vii) Neurologic deterioration [ ]viii) Infection with likelihood of sepsis syndrome or significant fluid shifts [ ]b) Airway or hemodynamic compromise that persists after 3 hours of observation in postanesthesia care unit following nasal, palate (eg, uvulopalatopharyngoplasty or palatoplasty), or tongue surgery for sleep apnea [ ]c) Preoperative or postoperative patient requiring ICU intervention, such as hemodynamic optimization, pulmonary artery monitoring, mechanical ventilation, or extensive nursing care [ ]d) Symptomatic upper airway compromise (eg, laryngeal edema, mass) [ ]e) Other airway-compromising procedure (eg, posterior nasal packing) [ ]XIX.Thoracic Surgery and Pulmonary Disease Diagnosis or procedures, including ANY ONE of the following(6): [ ]a) Asthma with ANY ONE of the following(73)(74): [ ]i) Impending or actual respiratory arrest [ ]ii) Need for mechanical ventilation [ ]iii) Peak expiratory flow rate less than 30% of predicted or personal best [ ]iv) Peak expiratory flow rate or FEV1 less than 40% predicted after 1 hour of initial treatment [ ]v) Acidosis [ ]vi) Persistent or worsening hypoxia after initial treatment [ ]vii) Hypercapnia (eg, partial pressure of carbon dioxide greater than 43 mm Hg (5.7 kPa)) [ ]viii) Severe drowsiness, confusion, or coma [ ]ix) Requiring continuous inhaled bronchodilator [ ]b) COPD with ANY ONE of the following(75): [ ]i) Need for assisted ventilation [ ]ii) Hemodynamic instability [ ]iii) Severe dyspnea unresponsive to initial treatment [ ]iv) Change in level of consciousness [ ]v) Persistent findings despite oxygen and outpatient management, including ANY ONE of the following: [ ]1) Partial pressure of oxygen less than 40 mm Hg ( 5.3 kPa) [ ]2) Partial pressure of carbon dioxide greater than 60 mm Hg (8.0 kPa) [ ]3) pH less than 7.25 [ ]4) Worsening hypoxemia or acidosis [ ]c) Cor pulmonale with ANY ONE of the following(75)(76)(77): [ ]i) Hemodynamic instability [ ]ii) Need for IV inotropic or vasoactive agent [ ]iii) Need for invasive hemodynamic monitoring (eg, central venous, pulmonary artery, or arterial catheter) [ ]iv) Hypoxemia with partial pressure of oxygen less than 40 mm Hg (5.3 kPa) [ ]v) Worsening hypoxemia or acidosis despite oxygen therapy [ ]vi) Need for assisted ventilation [ ]vii) Need for right ventricular assist device [ ]viii) Unstable atrial tachyarrhythmia [ ]ix) Need for inhaled nitric oxide [ ]d) Aspiration pneumonia with ANY ONE of the following(78): [ ]i) Acute respiratory distress syndrome (PaO2/FiO2 ratio of 300 or less) [ ]ii) Impending or actual respiratory arrest [ ]iii) Need for invasive or noninvasive mechanical ventilation [ ]e) Pneumocystis jiroveci pneumonia with ANY ONE of the following(79): [ ]i) Impending or actual respiratory arrest [ ]ii) Hypoxia (eg, PO260 mmGh (8.0 kPa) or less despite oxygen therapy) [ ]iii) Need for invasive or noninvasive mechanical ventilation [ ]f) Pneumonia with ANY ONE of the following(80)(81)(82): [ ]i) Need for invasive or noninvasive assisted ventilation [ ]ii) Hemodynamic instability [ ]iii) Severity factors as indicated by 3 or MORE of the following: [ ]1) Respiratory rate 30 breaths per minute or greater [ ]2) PaO2/FiO2 ratio of 250 or less [ ]3) Multilobed infiltrates [ ]4) Altered mental status [ ]5) BUN 20 mg/dL (7.1 mmol/L) or greater [ ]6) WBC count less than 4000/mm3 (4 x109/L) [ ]7) Platelet count <100,000/mm3 (100 x109/L) [ ]8) Temperature less than 36 degrees C (96.8 degrees F ) [ ]9) Hypotension requiring aggressive fluid resuscitation [ ]g) Pulmonary hypertension requiring initiation of parenteral pulmonary vasodilator or trial of inhaled nitric oxide (eg, need for right heart catheterization)(76) [ ]h) Impending respiratory failure as indicated by ANY ONE of the following: [ ]i) Respiratory rate greater than 30 or partial pressure of oxygen less than 60 mm Hg (8.0 kPa) on 50% oxygen or more [ ]ii) Partial pressure of carbon dioxide greater than 45 mm Hg (6.0 kPa) with pH less than 7.35 [ ]i) Respiratory failure with ANY ONE of the following (47): [ ]i) Need for invasive or noninvasive mechanical ventilation [ ]ii) High likelihood of requiring mechanical ventilation within 24 hours [ ]iii) Observation in the first several hours immediately after extubation from mechanical ventilation [ ]iv) Need for close observation and aggressive therapy, such as suctioning, chest physiotherapy, or inhalation treatments at intervals less than 1 hour [ ]v) Pharmacologic ventilatory paralysis [ ]j) Venous thromboembolism with need for systemic or catheter- directed thrombolysis (eg, for limb-threatening thrombosis, phlegmasia cerulea dolens) (83) [ ]k) Pulmonary embolus with ANY ONE of the following(83): [ ]i) Hypotension [ ]ii) Severe hypoxia [ ]iii) Dangerous arrhythmia [ ]iv) Bleeding [ ]v) Need for systemic or catheter-directed thrombolysis [ ]l) Lobectomy or other major thoracic surgery [ ]m) Lung transplant [ ]n) Symptomatic upper airway obstruction (eg, laryngeal edema, mass) [ ]o) Massive hemoptysis [ ]p) Infection or thrombosis of an intravenous device with ANY ONE of the following(6)(84): [ ]i) Hemodynamic instability [ ]ii) Requirement for frequent hemodynamic measurements [ ]iii) Shock [ ]iv) End organ dysfunction [ ] v) Acute renal failure due to missed dialysis [ ]vi) Unstable acute complication (eg, pericardial tamponade , tension pneumothorax) [ ]q) Traumatic rib fracture or fractures with ANY ONE of the following(85): [ ]i) Injury severity score of 19 or greater [ ]ii) Respiratory insufficiency [ ]iii) Flail chest [ ]iv) Sternum fracture [ ]v) Vascular injury (eg, heart or great vessels) [ ]r) Pleural effusion with ANY ONE of the following(86): [ ]i) Respiratory insufficiency [ ]ii) Hemothorax with active ongoing bleeding [ ]iii) Hemodynamic instability [ ]iv) Unstable comorbid condition (eg, sepsis or heart failure [ ]XX. Urology diagnoses or procedures, including ANY ONE of the following ( 87)(88): [ ]a) Renal transplant [ ]b) Complications of any surgery requiring ICU intervention as indicated by ANY ONE of the following: [ ]i) Hemodynamic instability [ ]ii) [place] with complications (eg, severe arrhythmia, hypotension) [ ]iii) Excessive bleeding or severe coagulopathy [ ]iv) Respiratory failure [ ]v) Renal failure [ ]vi) Airway instability or obstruction [ ]vii) Neurologic deterioration [ ]viii) Infection with likelihood of sepsis syndrome or significant fluid shifts [ ]c) Preoperative or postoperative patients requiring ICU intervention , such as hemodynamic optimization, pulmonary artery monitoring, mechanical ventilation , or extensive nursing care [ ]XXI.Infectious Disease diagnoses or procedures, with ANY ONE of the following (6)(43): [ ]a) Hemodynamic instability [ ]b) Shock [ ]c) Requirement for frequent hemodynamic measurements (eg, arterial catheter, pulmonary artery catheter) [ ]d) Sepsis or suspected sepsis with end organ dysfunction (eg, acute kidney injury, acute respiratory distress syndrome) [ ]e) Necrotizing soft tissue infection [ ] XXII.Hematology - Oncology diagnoses or procedures, including chemotherapy administration with ANY ONE of the following(42): [ ]a) Hemodynamic instability [ ]b) Tumor lysis syndrome with ANY ONE of the following : [ ]1) Acute kidney injury [ ]2) Severe electrolyte abnormality [ ]3) Cardiac dysrhythmia [ ]XXIII. Systemic conditions, including ANY ONE of the following: [ ]a) Severe electrolyte or metabolic disturbance causing or likely to cause ANY ONE of the following(10)(89)(90): [ ]i) Life-threatening cardiac dysrhythmia [ ]ii) Respiratory insufficiency [ ]iii) Altered mental status [ ]iv) Seizures [ ]v) Hemodynamic instability [ ]vi) Muscular weakness [ ]b) Environmental injuries such as hypothermia, hyperthermia, electrical injuries, or near drowning(70)(91)(92) The original [facility] content created by [employer] has been revised. The portions of the content which have been revised are identified through the use of italic text or in bold, and [facility] has neither reviewed nor approved the modified material. All other unmodified content is copyright [facility]. Please see references footnoted in the original [facility] edition 2016 Admission Criteria Met?: Yes GOMEZ DUARTE Jun 18, 2016 18:15
[2016-06-18] MEDS ORDERED: SODIUM BICARBONATE VIAL 150 MEQ in IV STERILE WATER 1,000 ML IV PRN (18:30)
[2016-06-18] MEDS ORDERED: DEXTROSE 50% 25 GM / 50ML DISP.SYRIN. IV PRN (18:30)
--- NOTE | 2016-06-18 18:34 | PDOC1 ---
History and Physical Date of Admission Date of Admission 06/18/16 Identification/Chief Complaint Chief Complaint unresponsive Problems: Source Source: Chart review History of Present Illness History of Present Illness 45yo M, was sent by EMS for unresponsiveness. pt was seen at 3pm, but no name or any other info till now. per ERP, pt was found on the ground at an appt complex, EMS called and found him agony breathing and sent to ER. Pt had one time seizure in ER, then code blue , with PEA, FOR 7min. pt is intubated, cannot provide any info. CT brain and CXR showed likely Malignancy mets. Past Medical History Past Medical History unknown Past Surgical History Past Surgical History unknown Family History Family History: No Significant Social History Smoke: No ALCOHOL: none Drugs: None Current Problem List Problem List Problems Medical Problems: (1) Acidosis Status: Acute (2) Mass, brain Status: Acute (3) Respiratory failure Status: Acute Current Medications Current Medications Current Medications Medications (Trade) Dose Ordered Sig/Heydi Start Time Stop Time Status Last Admin Dose Admin Calcium Gluconate 1000 mg 1,000 mg 1X ONCE 06/18/16 14:30 06/18/16 14:39 DC 06/18/16 15:30 1,000 MG Dexamethasone Sodium Phosphate (Decadron) 10 mg 1X ONCE 06/18/16 15:15 06/18/16 15:22 DC 06/18/16 15:51 10 MG Dexamethasone Sodium Phosphate 4 mg 4 mg Q6HRS 06/18/16 18:00 Dextrose 25 gm 1X ONCE 06/18/16 14:30 06/18/16 14:39 DC 06/18/16 15:26 25 GM Fentanyl Citrate 50 mcg 50 mcg PRN Q2HR PRN 06/18/16 15:45 06/19/16 15:44 Insulin Human Regular (Novolin R Vial) 10 unit 1X ONCE 06/18/16 14:30 06/18/16 14:39 DC 06/18/16 15:29 10 UNIT Levetiracetam/ Sodium Chloride (Keppra/Iv Sodium Chloride 0.9% 100ml) 105 ml @ 400 mls/hr Q12HR 06/18/16 16:00 06/18/16 15:38 400 MLS/HR Lorazepam 1 mg 1 mg 1X ONCE 06/18/16 15:45 06/18/16 15:46 DC 06/18/16 14:07 1 MG Midazolam HCl (Versed 100mg/ 100ml Premix) 100 ml @ 0 mls/hr 1X ONCE 06/18/16 15:45 06/18/16 15:46 DC 06/18/16 15:59 2 MLS/HR Ondansetron HCl (Zofran) 4 mg PRN Q8HRS PRN 06/18/16 15:45 06/19/16 15:44 Sodium Bicarbonate 50 meq/Dextrose/ Sodium Chloride 1,050 ml @ 125 mls/hr 1X ONCE 06/18/16 14:45 06/18/16 23:08 06/18/16 15:25 125 MLS/HR Sodium Bicarbonate/ Dextrose/Sodium Chloride (Iv D5% - 1/2 NS) 1,150 ml @ 125 mls/hr 1X ONCE 06/18/16 15:15 06/19/16 00:26 06/18/16 15:15 125 MLS/HR Sodium Bicarbonate 50 meq 1X ONCE 06/18/16 15:15 06/18/16 15:22 DC Sodium Chloride (Iv Sodium Chloride 0.9% 1000ml Bag) 1,000 ml @ 150 mls/hr Q6H40M 06/18/16 15:40 06/19/16 15:39 06/18/16 17:25 150 MLS/HR Allergies Allergies Allergies Coded Allergies Type Severity Reaction Last Updated Verified No Known Drug Allergies 06/18/16 No ROS Review of System CONSTITUTIONAL: No fever or chills EYES: No recent changes SKIN: No rash or itching CARDIOVASCULAR: No chest pain, syncope, palpitations, or edema RESPIRATORY: No SOB or cough GASTROINTESTINAL: No nausea, vomiting or abdominal pain NEUROLOGICAL: No headaches or weakness ENDOCRINE: No cold or heat intolerance GENITOURINARY: No urgency or frequency of urination MUSCULOSKELETAL: No back pain or joint pain LYMPHATICS: No enlarged lymph nodes PSYCHIATRIC: No anxiety or depression Physical Exam Physical Exam GEN.: intubated. HEENT: Head is normocephalic, atraumatic NECK: Supple. LUNGS: bl coarse bs. HEART: RRR, S1, S2 present. Peripheral pulses intact ABDOMEN: Soft, nontender. Positive bowel sounds. EXTREMITIES: Without any cyanosis. NEUROLOGIC: Normal speech, normal tone PSYCHIATRIC: Normal affect, normal mood. SKIN: No ulcerations Vitals Vitals Vital Signs Date Time Temp Pulse Resp B/P Pulse Ox O2 Delivery O2 Flow Rate FiO2 06/18/16 17:20 98.0 98.0 06/18/16 17:18 98 Ventilator 06/18/16 16:38 106 26 105/56 50 Labs Labs Laboratory Tests Test 06/18/16 14:20 06/18/16 14:25 06/18/16 14:26 06/18/16 14:45 White Blood Count 18.3x10^3/uL (4.0-11.0) Red Blood Count 5.10x10^6/uL (4.30-5.70) Hemoglobin 12.2g/dL (13.0-17.5) Hematocrit 41.9% (39.0-53.0) Mean Corpuscular Volume 82fL (79-100) Mean Corpuscular Hemoglobin 24pg (25-35) Mean Corpuscular Hemoglobin Concent 29g/dL (31-37) Red Cell Distribution Width 16.8% (11.5-14.5) Platelet Count 541x10^3/uL (140-400) Neutrophils (%) (Auto) 75% (31-73) Lymphocytes (%) (Auto) 21% (24-48) Monocytes (%) (Auto) 3% (0-9) Eosinophils (%) (Auto) 0% (0-3) Basophils (%) (Auto) 1% (0-3) Neutrophils # (Auto) 13.6x10^3uL (1.8-7.7) Lymphocytes # (Auto) 3.8x10^3/uL (1.0-4.8) Monocytes # (Auto) 0.6x10^3/uL (0.0-1.1) Eosinophils # (Auto) 0.1x10^3/uL (0.0-0.7) Basophils # (Auto) 0.2x10^3/uL (0.0-0.2) Segmented Neutrophils % 62% (35-66) Band Neutrophils % 6% (0-9) Lymphocytes % 27% (24-48) Monocytes % 3% (0-10) Eosinophils % 1% (0-5) Basophils % 1% (0-3) Platelet Estimate Increased (ADEQUATE) Hypochromasia Slight Poikilocytosis Slight Anisocytosis Slight Prothrombin Time 14.7SEC (11.7-14.0) Prothromb Time International Ratio 1.2 (0.8-1.1) Sodium Level 146mmol/L (136-145) Potassium Level 7.6mmol/L (3.5-5.1) Chloride Level 106mmol/L (98-107) Carbon Dioxide Level 19mmol/L (21-32) Anion Gap 21 (6-14) 23mmol/L (6-14) Blood Urea Nitrogen 14mg/dL (8-26) Creatinine 1.8mg/dL (0.7-1.3) Estimated GFR (Cockcroft-Gault) 33.8 Glucose Level 259mg/dL (70-99) 245mg/dL (70-99) Calcium Level 12.6mg/dL (8.5-10.1) Creatine Kinase 40U/L (39-308) Troponin I Quantitative < 0.017ng/mL (0.000-0.055) Bedside Troponin I 0.01ng/ml (<0.08) Bedside Hemoglobin 14.3g/dL (14-18) Bedside Hematocrit 42% (37-52) Bedside Sodium 148mmol/L (135-145) Bedside Potassium 7.0mmol/L (3.5-5.0) Bedside Chloride 113mmol/L (98-110) Bedside Total CO2 20mmol/L (23-32) Bedside Blood Urea Nitrogen 13mg/dL (8-26) Bedside Creatinine 1.2mg/dL (0.5-1.4) Bedside Ionized Calcium (Yuly) 1.52mmol/L (1.13-1.32) Urine Opiates Screen Neg (NEG) Urine Methadone Screen Neg (NEG) Urine Barbiturates Neg (NEG) Urine Phencyclidine Screen Neg (NEG) Urine Amphetamine/Methamphetamine Neg (NEG) Urine Benzodiazepines Screen Neg (NEG) Urine Cocaine Screen Neg (NEG) Urine Cannabinoids Screen Neg (NEG) Urine Ethyl Alcohol Neg (NEG) Test 06/18/16 15:20 O2 Saturation 90% (92-99) Arterial Blood pH 7.27 (7.35-7.45) Arterial Blood pCO2 at Patient Temp 31mmHg (35-46) Arterial Blood pO2 at Patient Temp 70mmHg (65-108) Arterial Blood HCO3 14mmol/L (21-28) Arterial Blood Base Excess -12mmol/L (-3-3) FiO2 40.0 Laboratory Tests Test 06/18/16 14:20 06/18/16 14:25 06/18/16 14:26 06/18/16 14:45 White Blood Count 18.3x10^3/uL (4.0-11.0) Red Blood Count 5.10x10^6/uL (4.30-5.70) Hemoglobin 12.2g/dL (13.0-17.5) Hematocrit 41.9% (39.0-53.0) Mean Corpuscular Volume 82fL (79-100) Mean Corpuscular Hemoglobin 24pg (25-35) Mean Corpuscular Hemoglobin Concent 29g/dL (31-37) Red Cell Distribution Width 16.8% (11.5-14.5) Platelet Count 541x10^3/uL (140-400) Neutrophils (%) (Auto) 75% (31-73) Lymphocytes (%) (Auto) 21% (24-48) Monocytes (%) (Auto) 3% (0-9) Eosinophils (%) (Auto) 0% (0-3) Basophils (%) (Auto) 1% (0-3) Neutrophils # (Auto) 13.6x10^3uL (1.8-7.7) Lymphocytes # (Auto) 3.8x10^3/uL (1.0-4.8) Monocytes # (Auto) 0.6x10^3/uL (0.0-1.1) Eosinophils # (Auto) 0.1x10^3/uL (0.0-0.7) Basophils # (Auto) 0.2x10^3/uL (0.0-0.2) Segmented Neutrophils % 62% (35-66) Band Neutrophils % 6% (0-9) Lymphocytes % 27% (24-48) Monocytes % 3% (0-10) Eosinophils % 1% (0-5) Basophils % 1% (0-3) Platelet Estimate Increased (ADEQUATE) Hypochromasia Slight Poikilocytosis Slight Anisocytosis Slight Prothrombin Time 14.7SEC (11.7-14.0) Prothromb Time International Ratio 1.2 (0.8-1.1) Sodium Level 146mmol/L (136-145) Potassium Level 7.6mmol/L (3.5-5.1) Chloride Level 106mmol/L (98-107) Carbon Dioxide Level 19mmol/L (21-32) Anion Gap 21 (6-14) 23mmol/L (6-14) Blood Urea Nitrogen 14mg/dL (8-26) Creatinine 1.8mg/dL (0.7-1.3) Estimated GFR (Cockcroft-Gault) 33.8 Glucose Level 259mg/dL (70-99) 245mg/dL (70-99) Calcium Level 12.6mg/dL (8.5-10.1) Creatine Kinase 40U/L (39-308) Troponin I Quantitative < 0.017ng/mL (0.000-0.055) Bedside Troponin I 0.01ng/ml (<0.08) Bedside Hemoglobin 14.3g/dL (14-18) Bedside Hematocrit 42% (37-52) Bedside Sodium 148mmol/L (135-145) Bedside Potassium 7.0mmol/L (3.5-5.0) Bedside Chloride 113mmol/L (98-110) Bedside Total CO2 20mmol/L (23-32) Bedside Blood Urea Nitrogen 13mg/dL (8-26) Bedside Creatinine 1.2mg/dL (0.5-1.4) Bedside Ionized Calcium (Yuly) 1.52mmol/L (1.13-1.32) Urine Opiates Screen Neg (NEG) Urine Methadone Screen Neg (NEG) Urine Barbiturates Neg (NEG) Urine Phencyclidine Screen Neg (NEG) Urine Amphetamine/Methamphetamine Neg (NEG) Urine Benzodiazepines Screen Neg (NEG) Urine Cocaine Screen Neg (NEG) Urine Cannabinoids Screen Neg (NEG) Urine Ethyl Alcohol Neg (NEG) Test 06/18/16 15:20 O2 Saturation 90% (92-99) Arterial Blood pH 7.27 (7.35-7.45) Arterial Blood pCO2 at Patient Temp 31mmHg (35-46) Arterial Blood pO2 at Patient Temp 70mmHg (65-108) Arterial Blood HCO3 14mmol/L (21-28) Arterial Blood Base Excess -12mmol/L (-3-3) FiO2 40.0 VTE Prophylaxis Ordered VTE Prophylaxis Devices: Yes VTE Pharmacological Prophylaxi: Yes Assessment/Plan Assessment/Plan 1. unresponsiveness, 2/2 brain mets likely 2. seizure, 2/2 brain mets likely 3. cardiac arrest, 2/2 hyperkalemia, and resp failure 4. actue resp failure 2/2 1 5. metabolic acidosis 6. hyperkalemia 7. belinda, vasomotor vs. atn 8. hyperglycemia 9. bl lung mets on CXR 10. hypernatremia 11. leukocytosis 2/2 maglignancy likely 12. SIRS wo infection 13 hypercalcemia plan: 1. renal, neuro, neurosx , sx consult onco CONSULT 2. intubated, ICU care 3. bicarb ivf 4. npo. ssi q6h 6. dvt , gi ppx 7. keppra and decadron as per neuro may need parra CT, defer to onco repeat BMP got bicarb, regular insulin in ER labs tmr poor prognosis cc 40min. will get PAT consult for hospice DANE KEEN MD Jun 18, 2016 18:34
[2016-06-18 19:20] LABS: CALCIUM 8.9 mg/dL (8.5-10.1); CREATININE 1.1 mg/dL (0.7-1.3); GFR 71.8; PHOSPHORUS 1.5 mg/dL (2.6-4.7); POTASSIUM 3.3 mmol/L (3.5-5.1)
[2016-06-18 19:31] LABS: CKMB INDEX 1.5 % (0-4); CKMB MASS 3.3 ng/mL (0.0-3.6)
[2016-06-18] MEDS ORDERED: POTASSIUM CHLORIDE 20MEQ 50 ML IV ONE (19:45)
[2016-06-18] MEDS ORDERED: POTASSIUM CHLORIDE 10MEQ 100 ML IV SCH (20:00)
[2016-06-18] MEDS: POTASSIUM PHOSPHATE DIBASIC 10 MMOL in IV NORMAL SALINE 100ML 100 ML IV SCH ×2 (20:54→22:00)
[2016-06-18] MEDS ORDERED: INSULIN ASPART 300 UNITS/3 ML INSULN.PEN SQ SCH (21:00)
[2016-06-18] MEDS: HEPARIN PF for SUB-Q USE 5,000 UNIT/0.5 ML VIAL. SQ SCH (21:51)
[2016-06-18] MEDS: DEXAMETHASONE SOD PHOS 4 MG/ML VIAL IV SCH (21:52)
[2016-06-18] MEDS ORDERED: GADOBUTROL 7.5 MMOL/7.5 ML VIAL IV ONE (23:15)
--- NOTE | 2016-06-18 23:37 | RAD ---
PROCEDURE MRI brain with and without contrast. HISTORY Nonresponsive patient. Lung mass. Abnormal CT head with possible metastatic disease. TECHNIQUE Sagittal T1, axial T1, axial T2, axial FLAIR, axial T2 gradient, diffusion imaging with ADC map, post-contrast axial, post-contrast sagittal, and post-contrast coronal sequences are provided. 7.5 milliliters of intravenous Gadavist was administered without complication. COMPARISON CT head from earlier today. FINDINGS Right temporal ring-enhancing mass measures 5.8 by 3.4 by 4.1 centimeters in size with associated edema. There is mild uncal herniation. Right parietal solid nodule measuring 4 millimeters in size has associated edema. Left frontal ring-enhancing mass measures 1.7 x 1.5 1.6 centimeters in size, associated edema. No additional enhancing lesion is identified. The ventricles and sulci are within normal limits for age. There is again mass effect with the right temporal lesion with uncal herniation and minimal midline shift. There is no acute intracranial hemorrhage or extra-axial fluid collection. There is blooming artifact layering dependently in both presumed necrotic metastases. This is compatible with a small amount of blood product. The intracranial flow voids are preserved. Sagittal midline structures are unremarkable. Pituitary and suprasellar region are unremarkable. There is ethmoid and sphenoid mucosal thickening. There is nonspecific fluid in the optic sheaths. IMPRESSION - 3 intracranial masses, 2 of which appear necrotic, the largest is in the right temporal lobe. Findings are compatible with metastatic disease given provided history of lung mass. - No evidence of an acute infarct. Electronically signed by: Jamir Castano MD (Jun 18, 2016 23:36:10)
[2016-06-19] VITALS (26 sets, daily range): BP systolic 93–116; BP diastolic 60–78
[2016-06-19] MEDS: DEXAMETHASONE SOD PHOS 4 MG/ML VIAL IV SCH ×4 (01:33→18:28)
[2016-06-19] MEDS ORDERED: MIDAZOLAM PREMIX 100 ML IV ONE (02:22)
[2016-06-19] MEDS: MIDAZOLAM PREMIX 100 ML IV PRN ×2 (02:48→09:35)
[2016-06-19] MEDS: INSULIN ASPART 300 UNITS/3 ML INSULN.PEN SQ SCH ×3 (06:00→18:00)
[2016-06-19 06:40] LABS: BASO # 0.1 x10^3/uL (0.0-0.2); BASO % 1 % (0-3); EOS % 0 % (0-3); HEMATOCRIT 26.6 % (39.0-53.0); HEMOGLOBIN 8.5 g/dL (13.0-17.5); LYMPH % 10 % (24-48); MEAN CORPUSCULAR HEMOGLOBIN 24 pg (25-35); MEAN CORPUSCULAR HGB CONC 32 g/dL (31-37); MONO % 3 % (0-9); NEUT % 86 % (31-73); PLATELET COUNT 328 x10^3/uL (140-400); RED BLOOD COUNT 3.53 x10^6/uL (4.30-5.70); RED CELL DISTRIBUTION WIDTH 15.8 % (11.5-14.5); WHITE BLOOD COUNT 10.5 x10^3/uL (4.0-11.0)
[2016-06-19] MEDS: HEPARIN PF for SUB-Q USE 5,000 UNIT/0.5 ML VIAL. SQ SCH ×3 (06:40→21:56)
[2016-06-19 06:48] LABS: MEAN CORPUSCULAR VOLUME 75 fL (79-100)
[2016-06-19 07:07] LABS: CALCIUM 9.1 mg/dL (8.5-10.1); CREATININE 1.2 mg/dL (0.7-1.3); GFR 64.9; POTASSIUM 3.9 mmol/L (3.5-5.1)
--- NOTE | 2016-06-19 07:17 | EKG ---
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
[2016-06-19] MEDS ORDERED: PANTOPRAZOLE IV PUSH 40 MG VIAL. IVP SCH (07:30)
[2016-06-19] MEDS: IV NORMAL SALINE 1000ML BAG 1,000 ML IV SCH ×2 (07:32→12:19)
[2016-06-19 08:07] LABS: PLT ESTIMATE ADEQUATE (ADEQUATE)
[2016-06-19 08:08] LABS: ANISOCYTOSIS PRESENT; HYPOCHROMIA PRESENT
--- NOTE | 2016-06-19 08:10 | PDOC ---
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 Recheck after intubation and IVF was low and needed correction. Given moslty WNL elytes - I will s/o without formal consult as discussedw ith Dr Motley. Objective Objective Vital Signs Date Time Temp Pulse Resp B/P Pulse Ox O2 Delivery O2 Flow Rate FiO2 06/19/16 07:00 73 26 102/70 99 Ventilator 06/19/16 04:00 97.5 97.5 06/18/16 18:20 50.0 Intake and Output 06/19/16 07:00 Intake Total 4594 ml Output Total 1485 ml Balance 3109 ml Intake Oral 0 ml IV Total 4594 ml Output Urine Total 1185 ml Gastric Drainage Total 300 ml Assessment Assessment Problems Medical Problems: (1) Acidosis Status: Acute (2) Hyperkalemia Status: Acute (3) Mass, brain Status: Acute (4) Respiratory failure Status: Acute Comment Review of Relevant I have reviewed the following items augustin (where applicable) has been applied. Labs Laboratory Tests Test 06/18/16 14:20 06/18/16 14:25 06/18/16 14:26 06/18/16 14:45 White Blood Count 18.3x10^3/uL (4.0-11.0) Red Blood Count 5.10x10^6/uL (4.30-5.70) Hemoglobin 12.2g/dL (13.0-17.5) Hematocrit 41.9% (39.0-53.0) Mean Corpuscular Volume 82fL (79-100) Mean Corpuscular Hemoglobin 24pg (25-35) Mean Corpuscular Hemoglobin Concent 29g/dL (31-37) Red Cell Distribution Width 16.8% (11.5-14.5) Platelet Count 541x10^3/uL (140-400) Neutrophils (%) (Auto) 75% (31-73) Lymphocytes (%) (Auto) 21% (24-48) Monocytes (%) (Auto) 3% (0-9) Eosinophils (%) (Auto) 0% (0-3) Basophils (%) (Auto) 1% (0-3) Neutrophils # (Auto) 13.6x10^3uL (1.8-7.7) Lymphocytes # (Auto) 3.8x10^3/uL (1.0-4.8) Monocytes # (Auto) 0.6x10^3/uL (0.0-1.1) Eosinophils # (Auto) 0.1x10^3/uL (0.0-0.7) Basophils # (Auto) 0.2x10^3/uL (0.0-0.2) Segmented Neutrophils % 62% (35-66) Band Neutrophils % 6% (0-9) Lymphocytes % 27% (24-48) Monocytes % 3% (0-10) Eosinophils % 1% (0-5) Basophils % 1% (0-3) Platelet Estimate Increased (ADEQUATE) Hypochromasia Slight Poikilocytosis Slight Anisocytosis Slight Prothrombin Time 14.7SEC (11.7-14.0) Prothromb Time International Ratio 1.2 (0.8-1.1) Sodium Level 146mmol/L (136-145) Potassium Level 7.6mmol/L (3.5-5.1) Chloride Level 106mmol/L (98-107) Carbon Dioxide Level 19mmol/L (21-32) Anion Gap 21 (6-14) 23mmol/L (6-14) Blood Urea Nitrogen 14mg/dL (8-26) Creatinine 1.8mg/dL (0.7-1.3) Estimated GFR (Cockcroft-Gault) 33.8 Glucose Level 259mg/dL (70-99) 245mg/dL (70-99) Calcium Level 12.6mg/dL (8.5-10.1) Creatine Kinase 40U/L (39-308) Troponin I Quantitative < 0.017ng/mL (0.000-0.055) Bedside Troponin I 0.01ng/ml (<0.08) Bedside Hemoglobin 14.3g/dL (14-18) Bedside Hematocrit 42% (37-52) Bedside Sodium 148mmol/L (135-145) Bedside Potassium 7.0mmol/L (3.5-5.0) Bedside Chloride 113mmol/L (98-110) Bedside Total CO2 20mmol/L (23-32) Bedside Blood Urea Nitrogen 13mg/dL (8-26) Bedside Creatinine 1.2mg/dL (0.5-1.4) Bedside Ionized Calcium (Yuly) 1.52mmol/L (1.13-1.32) Urine Opiates Screen Neg (NEG) Urine Methadone Screen Neg (NEG) Urine Barbiturates Neg (NEG) Urine Phencyclidine Screen Neg (NEG) Urine Amphetamine/Methamphetamine Neg (NEG) Urine Benzodiazepines Screen Neg (NEG) Urine Cocaine Screen Neg (NEG) Urine Cannabinoids Screen Neg (NEG) Urine Ethyl Alcohol Neg (NEG) Test 06/18/16 15:20 06/18/16 18:15 06/18/16 19:00 06/19/16 00:31 O2 Saturation 90% (92-99) Arterial Blood pH 7.27 (7.35-7.45) Arterial Blood pCO2 at Patient Temp 31mmHg (35-46) Arterial Blood pO2 at Patient Temp 70mmHg (65-108) Arterial Blood HCO3 14mmol/L (21-28) Arterial Blood Base Excess -12mmol/L (-3-3) FiO2 40.0 Nasal Screen MRSA (PCR) Negative (Negative) Sodium Level 139mmol/L (136-145) Potassium Level 3.3mmol/L (3.5-5.1) Chloride Level 104mmol/L (98-107) Carbon Dioxide Level 25mmol/L (21-32) Anion Gap 10 (6-14) Blood Urea Nitrogen 13mg/dL (8-26) Creatinine 1.1mg/dL (0.7-1.3) Estimated GFR (Cockcroft-Gault) 71.8 Glucose Level 169mg/dL (70-99) Calcium Level 8.9mg/dL (8.5-10.1) Phosphorus Level 1.5mg/dL (2.6-4.7) Magnesium Level 2.2mg/dL (1.8-2.4) Creatine Kinase 225U/L (39-308) Creatine Kinase MB (Mass) 3.3ng/mL (0.0-3.6) Creatine Kinase MB Relative Index 1.5% (0-4) Albumin 2.0g/dL (3.4-5.0) Glucose (Fingerstick) 150mg/dL (70-99) Test 06/19/16 06:25 White Blood Count 10.5x10^3/uL (4.0-11.0) Red Blood Count 3.53x10^6/uL (4.30-5.70) Hemoglobin 8.5g/dL (13.0-17.5) Hematocrit 26.6% (39.0-53.0) Mean Corpuscular Volume 75fL (79-100) Mean Corpuscular Hemoglobin 24pg (25-35) Mean Corpuscular Hemoglobin Concent 32g/dL (31-37) Red Cell Distribution Width 15.8% (11.5-14.5) Platelet Count 328x10^3/uL (140-400) Neutrophils (%) (Auto) 86% (31-73) Lymphocytes (%) (Auto) 10% (24-48) Monocytes (%) (Auto) 3% (0-9) Eosinophils (%) (Auto) 0% (0-3) Basophils (%) (Auto) 1% (0-3) Neutrophils # (Auto) 9.0x10^3uL (1.8-7.7) Lymphocytes # (Auto) 1.0x10^3/uL (1.0-4.8) Monocytes # (Auto) 0.4x10^3/uL (0.0-1.1) Eosinophils # (Auto) 0.0x10^3/uL (0.0-0.7) Basophils # (Auto) 0.1x10^3/uL (0.0-0.2) Sodium Level 140mmol/L (136-145) Potassium Level 3.9mmol/L (3.5-5.1) Chloride Level 106mmol/L (98-107) Carbon Dioxide Level 21mmol/L (21-32) Anion Gap 13 (6-14) Blood Urea Nitrogen 15mg/dL (8-26) Creatinine 1.2mg/dL (0.7-1.3) Estimated GFR (Cockcroft-Gault) 64.9 Glucose Level 132mg/dL (70-99) Calcium Level 9.1mg/dL (8.5-10.1) Laboratory Tests Test 06/18/16 14:20 06/18/16 14:25 06/18/16 14:26 06/18/16 14:45 White Blood Count 18.3x10^3/uL (4.0-11.0) Red Blood Count 5.10x10^6/uL (4.30-5.70) Hemoglobin 12.2g/dL (13.0-17.5) Hematocrit 41.9% (39.0-53.0) Mean Corpuscular Volume 82fL (79-100) Mean Corpuscular Hemoglobin 24pg (25-35) Mean Corpuscular Hemoglobin Concent 29g/dL (31-37) Red Cell Distribution Width 16.8% (11.5-14.5) Platelet Count 541x10^3/uL (140-400) Neutrophils (%) (Auto) 75% (31-73) Lymphocytes (%) (Auto) 21% (24-48) Monocytes (%) (Auto) 3% (0-9) Eosinophils (%) (Auto) 0% (0-3) Basophils (%) (Auto) 1% (0-3) Neutrophils # (Auto) 13.6x10^3uL (1.8-7.7) Lymphocytes # (Auto) 3.8x10^3/uL (1.0-4.8) Monocytes # (Auto) 0.6x10^3/uL (0.0-1.1) Eosinophils # (Auto) 0.1x10^3/uL (0.0-0.7) Basophils # (Auto) 0.2x10^3/uL (0.0-0.2) Segmented Neutrophils % 62% (35-66) Band Neutrophils % 6% (0-9) Lymphocytes % 27% (24-48) Monocytes % 3% (0-10) Eosinophils % 1% (0-5) Basophils % 1% (0-3) Platelet Estimate Increased (ADEQUATE) Hypochromasia Slight Poikilocytosis Slight Anisocytosis Slight Prothrombin Time 14.7SEC (11.7-14.0) Prothromb Time International Ratio 1.2 (0.8-1.1) Sodium Level 146mmol/L (136-145) Potassium Level 7.6mmol/L (3.5-5.1) Chloride Level 106mmol/L (98-107) Carbon Dioxide Level 19mmol/L (21-32) Anion Gap 21 (6-14) 23mmol/L (6-14) Blood Urea Nitrogen 14mg/dL (8-26) Creatinine 1.8mg/dL (0.7-1.3) Estimated GFR (Cockcroft-Gault) 33.8 Glucose Level 259mg/dL (70-99) 245mg/dL (70-99) Calcium Level 12.6mg/dL (8.5-10.1) Creatine Kinase 40U/L (39-308) Troponin I Quantitative < 0.017ng/mL (0.000-0.055) Bedside Troponin I 0.01ng/ml (<0.08) Bedside Hemoglobin 14.3g/dL (14-18) Bedside Hematocrit 42% (37-52) Bedside Sodium 148mmol/L (135-145) Bedside Potassium 7.0mmol/L (3.5-5.0) Bedside Chloride 113mmol/L (98-110) Bedside Total CO2 20mmol/L (23-32) Bedside Blood Urea Nitrogen 13mg/dL (8-26) Bedside Creatinine 1.2mg/dL (0.5-1.4) Bedside Ionized Calcium (Yuly) 1.52mmol/L (1.13-1.32) Urine Opiates Screen Neg (NEG) Urine Methadone Screen Neg (NEG) Urine Barbiturates Neg (NEG) Urine Phencyclidine Screen Neg (NEG) Urine Amphetamine/Methamphetamine Neg (NEG) Urine Benzodiazepines Screen Neg (NEG) Urine Cocaine Screen Neg (NEG) Urine Cannabinoids Screen Neg (NEG) Urine Ethyl Alcohol Neg (NEG) Test 06/18/16 15:20 06/18/16 18:15 06/18/16 19:00 06/19/16 00:31 O2 Saturation 90% (92-99) Arterial Blood pH 7.27 (7.35-7.45) Arterial Blood pCO2 at Patient Temp 31mmHg (35-46) Arterial Blood pO2 at Patient Temp 70mmHg (65-108) Arterial Blood HCO3 14mmol/L (21-28) Arterial Blood Base Excess -12mmol/L (-3-3) FiO2 40.0 Nasal Screen MRSA (PCR) Negative (Negative) Sodium Level 139mmol/L (136-145) Potassium Level 3.3mmol/L (3.5-5.1) Chloride Level 104mmol/L (98-107) Carbon Dioxide Level 25mmol/L (21-32) Anion Gap 10 (6-14) Blood Urea Nitrogen 13mg/dL (8-26) Creatinine 1.1mg/dL (0.7-1.3) Estimated GFR (Cockcroft-Gault) 71.8 Glucose Level 169mg/dL (70-99) Calcium Level 8.9mg/dL (8.5-10.1) Phosphorus Level 1.5mg/dL (2.6-4.7) Magnesium Level 2.2mg/dL (1.8-2.4) Creatine Kinase 225U/L (39-308) Creatine Kinase MB (Mass) 3.3ng/mL (0.0-3.6) Creatine Kinase MB Relative Index 1.5% (0-4) Albumin 2.0g/dL (3.4-5.0) Glucose (Fingerstick) 150mg/dL (70-99) Test 06/19/16 06:25 White Blood Count 10.5x10^3/uL (4.0-11.0) Red Blood Count 3.53x10^6/uL (4.30-5.70) Hemoglobin 8.5g/dL (13.0-17.5) Hematocrit 26.6% (39.0-53.0) Mean Corpuscular Volume 75fL (79-100) Mean Corpuscular Hemoglobin 24pg (25-35) Mean Corpuscular Hemoglobin Concent 32g/dL (31-37) Red Cell Distribution Width 15.8% (11.5-14.5) Platelet Count 328x10^3/uL (140-400) Neutrophils (%) (Auto) 86% (31-73) Lymphocytes (%) (Auto) 10% (24-48) Monocytes (%) (Auto) 3% (0-9) Eosinophils (%) (Auto) 0% (0-3) Basophils (%) (Auto) 1% (0-3) Neutrophils # (Auto) 9.0x10^3uL (1.8-7.7) Lymphocytes # (Auto) 1.0x10^3/uL (1.0-4.8) Monocytes # (Auto) 0.4x10^3/uL (0.0-1.1) Eosinophils # (Auto) 0.0x10^3/uL (0.0-0.7) Basophils # (Auto) 0.1x10^3/uL (0.0-0.2) Sodium Level 140mmol/L (136-145) Potassium Level 3.9mmol/L (3.5-5.1) Chloride Level 106mmol/L (98-107) Carbon Dioxide Level 21mmol/L (21-32) Anion Gap 13 (6-14) Blood Urea Nitrogen 15mg/dL (8-26) Creatinine 1.2mg/dL (0.7-1.3) Estimated GFR (Cockcroft-Gault) 64.9 Glucose Level 132mg/dL (70-99) Calcium Level 9.1mg/dL (8.5-10.1) Medications Current Medications Sodium Chloride 1,000 ml @ 1,000 mls/hr 1X ONCE IV Last administered on 14:51; Start 06/18/16 at 14:30; Stop 06/18/16 at 15:29; Status DC Sodium Chloride (Iv Sodium Chloride 0.9% 1000ml Bag) 1,000 ml @ 1,000 mls/hr Q1H IV Last administered on 06/18/16 16:00; Start 06/18/16 at 14:29; Stop at 15:28; Status DC Dextrose 25 gm 1X ONCE IV Last administered on 06/18/16 15:26; Start at 14:30; Stop 06/18/16 at 14:39; Status DC Insulin Human Regular (Novolin R Vial) 10 unit 1X ONCE IV Last administered on 06/18/16 15:29; Start 06/18/16 at 14:30; Stop 06/18/16 at 14:39; Status DC Calcium Gluconate 1000 mg 1,000 mg 1X ONCE IVP Last administered on 06/18/16 15:30; Start 06/18/16 at 14:30; Stop 06/18/16 at 14:39; Status DC Sodium Bicarbonate 50 meq/Dextrose/ Sodium Chloride 1,050 ml @ 125 mls/hr 1X ONCE IV Last administered on 06/18/16 15:25; Start 06/18/16 at 14:45; Stop at 23:08; Status DC Sodium Bicarbonate/ Dextrose/Sodium Chloride (Iv D5% - 1/2 NS) 1,150 ml @ 125 mls/hr 1X ONCE IV Last administered on 06/18/16 15:15; Start 06/18/16 at 15: 15; Stop 06/19/16 at 00:26; Status DC Sodium Bicarbonate 50 meq 1X ONCE IV ; Start 06/18/16 at 15:15; Stop 06/18/16 at 15:22; Status DC Dexamethasone Sodium Phosphate (Decadron) 10 mg 1X ONCE IV Last administered on 06/18/16 15:51; Start 06/18/16 at 15:15; Stop 06/18/16 at 15:22; Status DC Dexamethasone Sodium Phosphate 4 mg 4 mg Q6HRS IV Last administered on 06:39; Start 06/18/16 at 18:00 Levetiracetam/ Sodium Chloride (Keppra/Iv Sodium Chloride 0.9% 100ml) 105 ml @ 400 mls/hr Q12HR IV Last administered on 06/18/16 21:59; Start 06/18/16 at 16: 00 Lorazepam (Ativan) 1 mg 1X ONCE IV Last administered on 06/18/16 14:07; Start 06/18/16 at 15:45; Stop 06/18/16 at 15:46; Status DC Fentanyl Citrate 50 mcg 50 mcg 1X ONCE IV Last administered on 06/18/16 15:40 ; Start 06/18/16 at 15:45; Stop 06/18/16 at 15:46; Status DC Midazolam HCl (Versed 100mg/ 100ml Premix) 100 ml @ 0 mls/hr 1X ONCE IV Last administered on 06/18/16 15:59; Start 06/18/16 at 15:45; Stop 06/18/16 at 15:46 ; Status DC Ondansetron HCl (Zofran) 4 mg PRN Q8HRS PRN IV NAUSEA/VOMITING; Start 06/18/16 at 15:45; Stop 06/19/16 at 15:44 Fentanyl Citrate 50 mcg 50 mcg PRN Q2HR PRN IV PAIN; Start 06/18/16 at 15:45; Stop 06/19/16 at 15:44 Sodium Chloride (Iv Sodium Chloride 0.9% 1000ml Bag) 1,000 ml @ 150 mls/hr Q6H40M IV Last administered on 06/19/16 07:32; Start 06/18/16 at 15:40; Stop 06/19/16 at 15:39 Ondansetron HCl (Zofran) 4 mg PRN Q6HRS PRN IV NAUSEA/VOMITING; Start 06/18/16 at 18:30 Pantoprazole Sodium (Protonix Vial) 40 mg DAILYAC IVP ; Start 06/19/16 at 07:30 Heparin Sodium (Porcine) 5,000 unit Q8HRS SQ Last administered on 06/19/16 06: 40; Start 06/18/16 at 22:00 Insulin Aspart (Novolog) 0-9 UNITS QIDACHS SQ ; Start 06/18/16 at 21:00; Stop at 00:18; Status DC Dextrose 12.5 gm 12.5 gm PRN Q15MIN PRN IV SEE COMMENTS; Start 06/18/16 at 18: 30 Sodium Bicarbonate 150 meq/Sterile Water 1,150 ml @ 100 mls/hr [id number] PRN IV . ; Start 06/18/16 at 18:30; Stop 06/18/16 at 20:13; Status DC Potassium Chloride 50 ml @ 50 mls/hr 1X ONCE IV ; Start 06/18/16 at 19:45; Stop 06/18/16 at 20:44; Status UNV Potassium Phosphate 10 mmol/ Sodium Chloride 103.3333 ml @ 51.667 m... Q2H IV Last administered on 06/18/16 22:00; Start 06/18/16 at 20:00; Stop 06/18/16 at 23:59; Status DC Potassium Chloride (KCl Premix 10meq) 100 ml @ 100 mls/hr Q1H IV ; Start at 20:00; Stop 06/18/16 at 20:13; Status DC Gadobutrol (Gadavist) 7.5 mmol 1X ONCE IV Last administered on 06/18/16 23:10 ; Start 06/18/16 at 23:15; Stop 06/18/16 at 23:16; Status DC Insulin Aspart 0-9 UNITS Q6HRS SQ ; Start 06/19/16 at 06:00 Midazolam HCl 100 ml @ As Directed STK-MED ONCE IV ; Start 06/19/16 at 02:22; Stop 06/19/16 at 02:23; Status DC Midazolam HCl (Versed 100mg/ 100ml Premix) 100 ml @ 0 mls/hr CONT PRN IV SEE I/ O RECORD Last administered on 06/19/16t 02:48; Start 06/19/16 at 02:30 Vitals/I & O Vital Sign - Last 24 Hours 06/18/16 06/18/16 06/18/16 06/18/16 14:04 14:15 14:18 14:28 Temp 97.9 97.9 Pulse 72 106 116 116 B/P 11 170/81 156/71 152/70 Pulse Ox 95 94 100 O2 Delivery Bag Valve Mask Bag Valve Mask Ventilator Ventilator O2 Flow Rate 15 40 40 06/18/16 06/18/16 06/18/16 06/18/16 14:38 14:43 14:48 14:58 Pulse 122 136 138 Resp B/P 141/65 146/74 127/62 Pulse Ox 100 97 96 94 O2 Delivery Ventilator Ventilator Ventilator Ventilator O2 Flow Rate 40 40 40 06/18/16 06/18/16 06/18/16 06/18/16 15:08 15:18 15:28 15:38 Pulse 138 132 122 142 Resp B/P 124/64 124/63 129/66 143/61 Pulse Ox 92 91 92 90 O2 Delivery Ventilator Ventilator Ventilator Ventilator O2 Flow Rate 40 50 50 50 06/18/16 06/18/16 06/18/16 06/18/16 15:48 15:58 16:08 16:18 Pulse 104 106 108 108 Resp B/P 101/58 98/58 105/56 99/58 Pulse Ox 93 90 90 90 O2 Delivery Ventilator Ventilator Ventilator Ventilator O2 Flow Rate 50 50 50 50 06/18/16 06/18/16 06/18/16 06/18/16 16:28 16:38 16:48 16:58 Pulse 114 106 104 118 Resp B/P 113/63 105/56 105/58 125/74 Pulse Ox 93 94 95 97 O2 Delivery Ventilator Ventilator Ventilator Ventilator O2 Flow Rate 50 50 50 50 06/18/16 06/18/16 06/18/16 06/18/16 17:08 17:18 17:18 17:20 Temp 98.0 98.0 Pulse 110 116 B/P 133/85 126/70 Pulse Ox 98 99 98 O2 Delivery Ventilator Ventilator Ventilator O2 Flow Rate 50 50 06/18/16 06/18/16 06/18/16 06/18/16 17:28 17:38 17:48 17:58 Pulse 100 98 97 94 Resp B/P 109/58 100/61 99/61 123/75 Pulse Ox 99 99 99 99 O2 Delivery Ventilator Ventilator Ventilator Ventilator O2 Flow Rate 50 50 50 50 06/18/16 06/18/16 06/18/16 06/18/16 18:15 18:15 18:20 18:30 Temp 98.2 98.2 Pulse 120 110 94 Resp B/P 127/66 127/66 94/62 Pulse Ox 99 99 99 O2 Delivery Mechanical Ventilator Ventilator Ventilator Ventilator O2 Flow Rate 50.0 06/18/16 06/18/16 06/18/16 06/18/16 19:00 19:30 20:00 20:00 Temp 97.5 97.5 Pulse 88 82 80 Resp B/P 91/64 100/67 108/73 Pulse Ox 100 100 100 O2 Delivery Ventilator Ventilator Ventilator Mechanical Ventilator 06/18/16 06/18/16 06/18/16 06/18/16 20:30 20:50 21:00 22:00 Pulse 76 72 72 Resp B/P 98/68 93/66 94/68 Pulse Ox 100 98 100 100 O2 Delivery Ventilator Ventilator Ventilator Ventilator 06/18/16 06/18/16 06/19/16 06/19/16 23:00 23:30 00:00 00:00 Temp 97.4 97.4 Pulse 77 74 70 Resp B/P 109/76 116/81 116/78 Pulse Ox 100 100 100 O2 Delivery Ventilator Ventilator Mechanical Ventilator Ventilator 06/19/16 06/19/16 06/19/16 06/19/16 00:15 00:26 00:30 01:00 Pulse 66 66 63 Resp B/P 99/69 105/70 106/76 Pulse Ox 100 100 100 100 O2 Delivery Ventilator Ventilator Ventilator Ventilator 06/19/16 06/19/16 06/19/16 06/19/16 02:00 02:07 03:00 04:00 Pulse 65 61 Resp B/P 104/74 94/66 Pulse Ox 100 100 100 O2 Delivery Ventilator Ventilator Ventilator Mechanical Ventilator 06/19/16 06/19/16 06/19/16 06/19/16 04:00 04:21 05:00 05:57 Temp 97.5 97.5 Pulse 63 64 Resp B/P 94/65 97/66 Pulse Ox 100 100 100 100 O2 Delivery Ventilator Ventilator Ventilator Ventilator 06/19/16 06/19/16 06:00 07:00 Pulse 64 73 Resp B/P 93/63 102/70 Pulse Ox 100 99 O2 Delivery Ventilator Ventilator Intake and Output 06/18/16 06/18/16 06/19/16 15:00 23:00 07:00 Intake Total 2205 ml 2389 ml Output Total 1070 ml 415 ml Balance 1135 ml 1974 ml MICHELLE GONGORA MD Jun 19, 2016 08:10
--- NOTE | 2016-06-19 08:34 | RAD ---
Portable chest, 06/19/2016: History: Shortness of breath Comparison is made to yesterday's study. An NG tube extends into the stomach. The ET tube tip lies well above the rosana. The heart size and pulmonary vascularity are normal. Scattered pulmonary nodules are again noted. There is mild streaky left basilar atelectasis/infiltrate partially obscuring the hemidiaphragm. No significant pleural fluid is seen. IMPRESSION: 1. The ET tube and NG tube are in satisfactory positions. 2. Bilateral pulmonary nodules. 3. Mild left basilar atelectasis/infiltrate has developed.
[2016-06-19 08:36] LABS: HCO3 ABG 21 mmol/L (21-28); PCO2 ABG 26 mmHg (35-46); PH ABG 7.52 (7.35-7.45); PO2 ABG 130 mmHg (75-108); SAT O2 ABG 98 % (92-99)
--- NOTE | 2016-06-19 08:36 | PDOC ---
PROGRESS NOTES Chief Complaint Chief Complaint 1. CArdio pulmonary arrest on IPPV POA 2. BRain lesions, likely metastatic,unknown primary - new dx 3. New onset SZ in the background of # 1 4. Ex smoker 5., HYpercalcemia, POA, resolved 6 metabolic acidosis, hyperkalemia POA, resolved 7. Bilateral PULM nodules 8 SIRS no sepsis, POA 9. MOd PCM 10. ARINA pOA, vasomotor vs ATN History of Present Illness History of Present Illness INtubated sedated on versed 10 to prevent SZ MRI- I have personally reviewed, official read: FINDINGS Right temporal ring-enhancing mass measures 5.8 by 3.4 by 4.1 centimeters in size with associated edema. There is mild uncal herniation. Right parietal solid nodule measuring 4 millimeters in size has associated edema. Left frontal ring-enhancing mass measures 1.7 x 1.5 1.6 centimeters in size, associated edema. No additional enhancing lesion is identified. The ventricles and sulci are within normal limits for age. There is again mass effect with the right temporal lesion with uncal herniation and minimal midline shift. There is no acute intracranial hemorrhage or extra-axial fluid collection. There is blooming artifact layering dependently in both presumed necrotic metastases. This is compatible with a small amount of blood product. The intracranial flow voids are preserved. Sagittal midline structures are unremarkable. Pituitary and suprasellar region are unremarkable. There is ethmoid and sphenoid mucosal thickening. There is nonspecific fluid in the optic sheaths. IMPRESSION - 3 intracranial masses, 2 of which appear necrotic, the largest is in the right temporal lobe. Findings are compatible with metastatic disease given provided history of lung mass. - No evidence of an acute infarct. Heme onc now on case Dw family at bedside, was an ex smoker, maybe had c scope? 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8% (11.5-14.5) Platelet Count 541x10^3/uL (140-400) Neutrophils (%) (Auto) 75% (31-73) Lymphocytes (%) (Auto) 21% (24-48) Monocytes (%) (Auto) 3% (0-9) Eosinophils (%) (Auto) 0% (0-3) Basophils (%) (Auto) 1% (0-3) Neutrophils # (Auto) 13.6x10^3uL (1.8-7.7) Lymphocytes # (Auto) 3.8x10^3/uL (1.0-4.8) Monocytes # (Auto) 0.6x10^3/uL (0.0-1.1) Eosinophils # (Auto) 0.1x10^3/uL (0.0-0.7) Basophils # (Auto) 0.2x10^3/uL (0.0-0.2) Segmented Neutrophils % 62% (35-66) Band Neutrophils % 6% (0-9) Lymphocytes % 27% (24-48) Monocytes % 3% (0-10) Eosinophils % 1% (0-5) Basophils % 1% (0-3) Platelet Estimate Increased (ADEQUATE) Hypochromasia Slight Poikilocytosis Slight Anisocytosis Slight Prothrombin Time 14.7SEC (11.7-14.0) Prothromb Time International Ratio 1.2 (0.8-1.1) Sodium Level 146mmol/L (136-145) Potassium Level 7.6mmol/L (3.5-5.1) Chloride Level 106mmol/L (98-107) Carbon Dioxide Level 19mmol/L (21-32) Anion Gap 21 (6-14) 23mmol/L (6-14) Blood Urea Nitrogen 14mg/dL (8-26) Creatinine 1.8mg/dL (0.7-1.3) Estimated GFR (Cockcroft-Gault) 33.8 Glucose Level 259mg/dL (70-99) 245mg/dL (70-99) Calcium Level 12.6mg/dL (8.5-10.1) Creatine Kinase 40U/L (39-308) Troponin I Quantitative < 0.017ng/mL (0.000-0.055) Bedside Troponin I 0.01ng/ml (<0.08) Bedside Hemoglobin 14.3g/dL (14-18) Bedside Hematocrit 42% (37-52) Bedside Sodium 148mmol/L (135-145) Bedside Potassium 7.0mmol/L (3.5-5.0) Bedside Chloride 113mmol/L (98-110) Bedside Total CO2 20mmol/L (23-32) Bedside Blood Urea Nitrogen 13mg/dL (8-26) Bedside Creatinine 1.2mg/dL (0.5-1.4) Bedside Ionized Calcium (Yuly) 1.52mmol/L (1.13-1.32) Urine Opiates Screen Neg (NEG) Urine Methadone Screen Neg (NEG) Urine Barbiturates Neg (NEG) Urine Phencyclidine Screen Neg (NEG) Urine Amphetamine/Methamphetamine Neg (NEG) Urine Benzodiazepines Screen Neg (NEG) Urine Cocaine Screen Neg (NEG) Urine Cannabinoids Screen Neg (NEG) Urine Ethyl Alcohol Neg (NEG) Test 06/18/16 15:20 06/18/16 18:15 06/18/16 19:00 06/19/16 00:31 O2 Saturation 90% (92-99) Arterial Blood pH 7.27 (7.35-7.45) Arterial Blood pCO2 at Patient Temp 31mmHg (35-46) Arterial Blood pO2 at Patient Temp 70mmHg (65-108) Arterial Blood HCO3 14mmol/L (21-28) Arterial Blood Base Excess -12mmol/L (-3-3) FiO2 40.0 Nasal Screen MRSA (PCR) Negative (Negative) Sodium Level 139mmol/L (136-145) Potassium Level 3.3mmol/L (3.5-5.1) Chloride Level 104mmol/L (98-107) Carbon Dioxide Level 25mmol/L (21-32) Anion Gap 10 (6-14) Blood Urea Nitrogen 13mg/dL (8-26) Creatinine 1.1mg/dL (0.7-1.3) Estimated GFR (Cockcroft-Gault) 71.8 Glucose Level 169mg/dL (70-99) Calcium Level 8.9mg/dL (8.5-10.1) Phosphorus Level 1.5mg/dL (2.6-4.7) Magnesium Level 2.2mg/dL (1.8-2.4) Creatine Kinase 225U/L (39-308) Creatine Kinase MB (Mass) 3.3ng/mL (0.0-3.6) Creatine Kinase MB Relative Index 1.5% (0-4) Albumin 2.0g/dL (3.4-5.0) Glucose (Fingerstick) 150mg/dL (70-99) Test 06/19/16 06:25 White Blood Count 10.5x10^3/uL (4.0-11.0) Red Blood Count 3.53x10^6/uL (4.30-5.70) Hemoglobin 8.5g/dL (13.0-17.5) Hematocrit 26.6% (39.0-53.0) Mean Corpuscular Volume 75fL (79-100) Mean Corpuscular Hemoglobin 24pg (25-35) Mean Corpuscular Hemoglobin Concent 32g/dL (31-37) Red Cell Distribution Width 15.8% (11.5-14.5) Platelet Count 328x10^3/uL (140-400) Neutrophils (%) (Auto) 86% (31-73) Lymphocytes (%) (Auto) 10% (24-48) Monocytes (%) (Auto) 3% (0-9) Eosinophils (%) (Auto) 0% (0-3) Basophils (%) (Auto) 1% (0-3) Neutrophils # (Auto) 9.0x10^3uL (1.8-7.7) Lymphocytes # (Auto) 1.0x10^3/uL (1.0-4.8) Monocytes # (Auto) 0.4x10^3/uL (0.0-1.1) Eosinophils # (Auto) 0.0x10^3/uL (0.0-0.7) Basophils # (Auto) 0.1x10^3/uL (0.0-0.2) Segmented Neutrophils % 77% (35-66) Band Neutrophils % 9% (0-9) Lymphocytes % 11% (24-48) Monocytes % 3% (0-10) Platelet Estimate Adequate (ADEQUATE) Hypochromasia Present Anisocytosis Present Sodium Level 140mmol/L (136-145) Potassium Level 3.9mmol/L (3.5-5.1) Chloride Level 106mmol/L (98-107) Carbon Dioxide Level 21mmol/L (21-32) Anion Gap 13 (6-14) Blood Urea Nitrogen 15mg/dL (8-26) Creatinine 1.2mg/dL (0.7-1.3) Estimated GFR (Cockcroft-Gault) 64.9 Glucose Level 132mg/dL (70-99) Calcium Level 9.1mg/dL (8.5-10.1) Review of Systems Review of Systems intubated Assessment and Plan Assessmemt and Plan Problems Medical Problems: (1) Acidosis Status: Acute (2) Hyperkalemia Status: Acute (3) Mass, brain Status: Acute (4) Respiratory failure Status: Acute Problems: Comment Review of Relevant I have reviewed the following items augustin (where applicable) has been applied. Labs Laboratory Tests Test 06/18/16 14:20 06/18/16 14:25 06/18/16 14:26 06/18/16 14:45 White Blood Count 18.3x10^3/uL (4.0-11.0) Red Blood Count 5.10x10^6/uL (4.30-5.70) Hemoglobin 12.2g/dL (13.0-17.5) Hematocrit 41.9% (39.0-53.0) Mean Corpuscular Volume 82fL (79-100) Mean Corpuscular Hemoglobin 24pg (25-35) Mean Corpuscular Hemoglobin Concent 29g/dL (31-37) Red Cell Distribution Width 16.8% (11.5-14.5) Platelet Count 541x10^3/uL (140-400) Neutrophils (%) (Auto) 75% (31-73) Lymphocytes (%) (Auto) 21% (24-48) Monocytes (%) (Auto) 3% (0-9) Eosinophils (%) (Auto) 0% (0-3) Basophils (%) (Auto) 1% (0-3) Neutrophils # (Auto) 13.6x10^3uL (1.8-7.7) Lymphocytes # (Auto) 3.8x10^3/uL (1.0-4.8) Monocytes # (Auto) 0.6x10^3/uL (0.0-1.1) Eosinophils # (Auto) 0.1x10^3/uL (0.0-0.7) Basophils # (Auto) 0.2x10^3/uL (0.0-0.2) Segmented Neutrophils % 62% (35-66) Band Neutrophils % 6% (0-9) Lymphocytes % 27% (24-48) Monocytes % 3% (0-10) Eosinophils % 1% (0-5) Basophils % 1% (0-3) Platelet Estimate Increased (ADEQUATE) Hypochromasia Slight Poikilocytosis Slight Anisocytosis Slight Prothrombin Time 14.7SEC (11.7-14.0) Prothromb Time International Ratio 1.2 (0.8-1.1) Sodium Level 146mmol/L (136-145) Potassium Level 7.6mmol/L (3.5-5.1) Chloride Level 106mmol/L (98-107) Carbon Dioxide Level 19mmol/L (21-32) Anion Gap 21 (6-14) 23mmol/L (6-14) Blood Urea Nitrogen 14mg/dL (8-26) Creatinine 1.8mg/dL (0.7-1.3) Estimated GFR (Cockcroft-Gault) 33.8 Glucose Level 259mg/dL (70-99) 245mg/dL (70-99) Calcium Level 12.6mg/dL (8.5-10.1) Creatine Kinase 40U/L (39-308) Troponin I Quantitative < 0.017ng/mL (0.000-0.055) Bedside Troponin I 0.01ng/ml (<0.08) Bedside Hemoglobin 14.3g/dL (14-18) Bedside Hematocrit 42% (37-52) Bedside Sodium 148mmol/L (135-145) Bedside Potassium 7.0mmol/L (3.5-5.0) Bedside Chloride 113mmol/L (98-110) Bedside Total CO2 20mmol/L (23-32) Bedside Blood Urea Nitrogen 13mg/dL (8-26) Bedside Creatinine 1.2mg/dL (0.5-1.4) Bedside Ionized Calcium (Yuly) 1.52mmol/L (1.13-1.32) Urine Opiates Screen Neg (NEG) Urine Methadone Screen Neg (NEG) Urine Barbiturates Neg (NEG) Urine Phencyclidine Screen Neg (NEG) Urine Amphetamine/Methamphetamine Neg (NEG) Urine Benzodiazepines Screen Neg (NEG) Urine Cocaine Screen Neg (NEG) Urine Cannabinoids Screen Neg (NEG) Urine Ethyl Alcohol Neg (NEG) Test 06/18/16 15:20 06/18/16 18:15 06/18/16 19:00 06/19/16 00:31 O2 Saturation 90% (92-99) Arterial Blood pH 7.27 (7.35-7.45) Arterial Blood pCO2 at Patient Temp 31mmHg (35-46) Arterial Blood pO2 at Patient Temp 70mmHg (65-108) Arterial Blood HCO3 14mmol/L (21-28) Arterial Blood Base Excess -12mmol/L (-3-3) FiO2 40.0 Nasal Screen MRSA (PCR) Negative (Negative) Sodium Level 139mmol/L (136-145) Potassium Level 3.3mmol/L (3.5-5.1) Chloride Level 104mmol/L (98-107) Carbon Dioxide Level 25mmol/L (21-32) Anion Gap 10 (6-14) Blood Urea Nitrogen 13mg/dL (8-26) Creatinine 1.1mg/dL (0.7-1.3) Estimated GFR (Cockcroft-Gault) 71.8 Glucose Level 169mg/dL (70-99) Calcium Level 8.9mg/dL (8.5-10.1) Phosphorus Level 1.5mg/dL (2.6-4.7) Magnesium Level 2.2mg/dL (1.8-2.4) Creatine Kinase 225U/L (39-308) Creatine Kinase MB (Mass) 3.3ng/mL (0.0-3.6) Creatine Kinase MB Relative Index 1.5% (0-4) Albumin 2.0g/dL (3.4-5.0) Glucose (Fingerstick) 150mg/dL (70-99) Test 06/19/16 06:25 White Blood Count 10.5x10^3/uL (4.0-11.0) Red Blood Count 3.53x10^6/uL (4.30-5.70) Hemoglobin 8.5g/dL (13.0-17.5) Hematocrit 26.6% (39.0-53.0) Mean Corpuscular Volume 75fL (79-100) Mean Corpuscular Hemoglobin 24pg (25-35) Mean Corpuscular Hemoglobin Concent 32g/dL (31-37) Red Cell Distribution Width 15.8% (11.5-14.5) Platelet Count 328x10^3/uL (140-400) Neutrophils (%) (Auto) 86% (31-73) Lymphocytes (%) (Auto) 10% (24-48) Monocytes (%) (Auto) 3% (0-9) Eosinophils (%) (Auto) 0% (0-3) Basophils (%) (Auto) 1% (0-3) Neutrophils # (Auto) 9.0x10^3uL (1.8-7.7) Lymphocytes # (Auto) 1.0x10^3/uL (1.0-4.8) Monocytes # (Auto) 0.4x10^3/uL (0.0-1.1) Eosinophils # (Auto) 0.0x10^3/uL (0.0-0.7) Basophils # (Auto) 0.1x10^3/uL (0.0-0.2) Segmented Neutrophils % 77% (35-66) Band Neutrophils % 9% (0-9) Lymphocytes % 11% (24-48) Monocytes % 3% (0-10) Platelet Estimate Adequate (ADEQUATE) Hypochromasia Present Anisocytosis Present Sodium Level 140mmol/L (136-145) Potassium Level 3.9mmol/L (3.5-5.1) Chloride Level 106mmol/L (98-107) Carbon Dioxide Level 21mmol/L (21-32) Anion Gap 13 (6-14) Blood Urea Nitrogen 15mg/dL (8-26) Creatinine 1.2mg/dL (0.7-1.3) Estimated GFR (Cockcroft-Gault) 64.9 Glucose Level 132mg/dL (70-99) Calcium Level 9.1mg/dL (8.5-10.1) Laboratory Tests Test 06/18/16 14:20 06/18/16 14:25 06/18/16 14:26 06/18/16 14:45 White Blood Count 18.3x10^3/uL (4.0-11.0) Red Blood Count 5.10x10^6/uL (4.30-5.70) Hemoglobin 12.2g/dL (13.0-17.5) Hematocrit 41.9% (39.0-53.0) Mean Corpuscular Volume 82fL (79-100) Mean Corpuscular Hemoglobin 24pg (25-35) Mean Corpuscular Hemoglobin Concent 29g/dL (31-37) Red Cell Distribution Width 16.8% (11.5-14.5) Platelet Count 541x10^3/uL (140-400) Neutrophils (%) (Auto) 75% (31-73) Lymphocytes (%) (Auto) 21% (24-48) Monocytes (%) (Auto) 3% (0-9) Eosinophils (%) (Auto) 0% (0-3) Basophils (%) (Auto) 1% (0-3) Neutrophils # (Auto) 13.6x10^3uL (1.8-7.7) Lymphocytes # (Auto) 3.8x10^3/uL (1.0-4.8) Monocytes # (Auto) 0.6x10^3/uL (0.0-1.1) Eosinophils # (Auto) 0.1x10^3/uL (0.0-0.7) Basophils # (Auto) 0.2x10^3/uL (0.0-0.2) Segmented Neutrophils % 62% (35-66) Band Neutrophils % 6% (0-9) Lymphocytes % 27% (24-48) Monocytes % 3% (0-10) Eosinophils % 1% (0-5) Basophils % 1% (0-3) Platelet Estimate Increased (ADEQUATE) Hypochromasia Slight Poikilocytosis Slight Anisocytosis Slight Prothrombin Time 14.7SEC (11.7-14.0) Prothromb Time International Ratio 1.2 (0.8-1.1) Sodium Level 146mmol/L (136-145) Potassium Level 7.6mmol/L (3.5-5.1) Chloride Level 106mmol/L (98-107) Carbon Dioxide Level 19mmol/L (21-32) Anion Gap 21 (6-14) 23mmol/L (6-14) Blood Urea Nitrogen 14mg/dL (8-26) Creatinine 1.8mg/dL (0.7-1.3) Estimated GFR (Cockcroft-Gault) 33.8 Glucose Level 259mg/dL (70-99) 245mg/dL (70-99) Calcium Level 12.6mg/dL (8.5-10.1) Creatine Kinase 40U/L (39-308) Troponin I Quantitative < 0.017ng/mL (0.000-0.055) Bedside Troponin I 0.01ng/ml (<0.08) Bedside Hemoglobin 14.3g/dL (14-18) Bedside Hematocrit 42% (37-52) Bedside Sodium 148mmol/L (135-145) Bedside Potassium 7.0mmol/L (3.5-5.0) Bedside Chloride 113mmol/L (98-110) Bedside Total CO2 20mmol/L (23-32) Bedside Blood Urea Nitrogen 13mg/dL (8-26) Bedside Creatinine 1.2mg/dL (0.5-1.4) Bedside Ionized Calcium (Yuly) 1.52mmol/L (1.13-1.32) Urine Opiates Screen Neg (NEG) Urine Methadone Screen Neg (NEG) Urine Barbiturates Neg (NEG) Urine Phencyclidine Screen Neg (NEG) Urine Amphetamine/Methamphetamine Neg (NEG) Urine Benzodiazepines Screen Neg (NEG) Urine Cocaine Screen Neg (NEG) Urine Cannabinoids Screen Neg (NEG) Urine Ethyl Alcohol Neg (NEG) Test 06/18/16 15:20 06/18/16 18:15 06/18/16 19:00 06/19/16 00:31 O2 Saturation 90% (92-99) Arterial Blood pH 7.27 (7.35-7.45) Arterial Blood pCO2 at Patient Temp 31mmHg (35-46) Arterial Blood pO2 at Patient Temp 70mmHg (65-108) Arterial Blood HCO3 14mmol/L (21-28) Arterial Blood Base Excess -12mmol/L (-3-3) FiO2 40.0 Nasal Screen MRSA (PCR) Negative (Negative) Sodium Level 139mmol/L (136-145) Potassium Level 3.3mmol/L (3.5-5.1) Chloride Level 104mmol/L (98-107) Carbon Dioxide Level 25mmol/L (21-32) Anion Gap 10 (6-14) Blood Urea Nitrogen 13mg/dL (8-26) Creatinine 1.1mg/dL (0.7-1.3) Estimated GFR (Cockcroft-Gault) 71.8 Glucose Level 169mg/dL (70-99) Calcium Level 8.9mg/dL (8.5-10.1) Phosphorus Level 1.5mg/dL (2.6-4.7) Magnesium Level 2.2mg/dL (1.8-2.4) Creatine Kinase 225U/L (39-308) Creatine Kinase MB (Mass) 3.3ng/mL (0.0-3.6) Creatine Kinase MB Relative Index 1.5% (0-4) Albumin 2.0g/dL (3.4-5.0) Glucose (Fingerstick) 150mg/dL (70-99) Test 06/19/16 06:25 White Blood Count 10.5x10^3/uL (4.0-11.0) Red Blood Count 3.53x10^6/uL (4.30-5.70) Hemoglobin 8.5g/dL (13.0-17.5) Hematocrit 26.6% (39.0-53.0) Mean Corpuscular Volume 75fL (79-100) Mean Corpuscular Hemoglobin 24pg (25-35) Mean Corpuscular Hemoglobin Concent 32g/dL (31-37) Red Cell Distribution Width 15.8% (11.5-14.5) Platelet Count 328x10^3/uL (140-400) Neutrophils (%) (Auto) 86% (31-73) Lymphocytes (%) (Auto) 10% (24-48) Monocytes (%) (Auto) 3% (0-9) Eosinophils (%) (Auto) 0% (0-3) Basophils (%) (Auto) 1% (0-3) Neutrophils # (Auto) 9.0x10^3uL (1.8-7.7) Lymphocytes # (Auto) 1.0x10^3/uL (1.0-4.8) Monocytes # (Auto) 0.4x10^3/uL (0.0-1.1) Eosinophils # (Auto) 0.0x10^3/uL (0.0-0.7) Basophils # (Auto) 0.1x10^3/uL (0.0-0.2) Segmented Neutrophils % 77% (35-66) Band Neutrophils % 9% (0-9) Lymphocytes % 11% (24-48) Monocytes % 3% (0-10) Platelet Estimate Adequate (ADEQUATE) Hypochromasia Present Anisocytosis Present Sodium Level 140mmol/L (136-145) Potassium Level 3.9mmol/L (3.5-5.1) Chloride Level 106mmol/L (98-107) Carbon Dioxide Level 21mmol/L (21-32) Anion Gap 13 (6-14) Blood Urea Nitrogen 15mg/dL (8-26) Creatinine 1.2mg/dL (0.7-1.3) Estimated GFR (Cockcroft-Gault) 64.9 Glucose Level 132mg/dL (70-99) Calcium Level 9.1mg/dL (8.5-10.1) Medications Current Medications Sodium Chloride 1,000 ml @ 1,000 mls/hr 1X ONCE IV Last administered on 14:51; Start 06/18/16 at 14:30; Stop 06/18/16 at 15:29; Status DC Sodium Chloride (Iv Sodium Chloride 0.9% 1000ml Bag) 1,000 ml @ 1,000 mls/hr Q1H IV Last administered on 06/18/16 16:00; Start 06/18/16 at 14:29; Stop at 15:28; Status DC Dextrose 25 gm 1X ONCE IV Last administered on 06/18/16 15:26; Start at 14:30; Stop 06/18/16 at 14:39; Status DC Insulin Human Regular (Novolin R Vial) 10 unit 1X ONCE IV Last administered on 06/18/16 15:29; Start 06/18/16 at 14:30; Stop 06/18/16 at 14:39; Status DC Calcium Gluconate 1000 mg 1,000 mg 1X ONCE IVP Last administered on 06/18/16 15:30; Start 06/18/16 at 14:30; Stop 06/18/16 at 14:39; Status DC Sodium Bicarbonate 50 meq/Dextrose/ Sodium Chloride 1,050 ml @ 125 mls/hr 1X ONCE IV Last administered on 06/18/16 15:25; Start 06/18/16 at 14:45; Stop at 23:08; Status DC Sodium Bicarbonate/ Dextrose/Sodium Chloride (Iv D5% - 1/2 NS) 1,150 ml @ 125 mls/hr 1X ONCE IV Last administered on 06/18/16 15:15; Start 06/18/16 at 15: 15; Stop 06/19/16 at 00:26; Status DC Sodium Bicarbonate 50 meq 1X ONCE IV ; Start 06/18/16 at 15:15; Stop 06/18/16 at 15:22; Status DC Dexamethasone Sodium Phosphate (Decadron) 10 mg 1X ONCE IV Last administered on 06/18/16 15:51; Start 06/18/16 at 15:15; Stop 06/18/16 at 15:22; Status DC Dexamethasone Sodium Phosphate 4 mg 4 mg Q6HRS IV Last administered on 06:39; Start 06/18/16 at 18:00 Levetiracetam/ Sodium Chloride (Keppra/Iv Sodium Chloride 0.9% 100ml) 105 ml @ 400 mls/hr Q12HR IV Last administered on 06/18/16 21:59; Start 06/18/16 at 16: 00 Lorazepam (Ativan) 1 mg 1X ONCE IV Last administered on 06/18/16 14:07; Start 06/18/16 at 15:45; Stop 06/18/16 at 15:46; Status DC Fentanyl Citrate 50 mcg 50 mcg 1X ONCE IV Last administered on 06/18/16 15:40 ; Start 06/18/16 at 15:45; Stop 06/18/16 at 15:46; Status DC Midazolam HCl (Versed 100mg/ 100ml Premix) 100 ml @ 0 mls/hr 1X ONCE IV Last administered on 06/18/16 15:59; Start 06/18/16 at 15:45; Stop 06/18/16 at 15:46 ; Status DC Ondansetron HCl (Zofran) 4 mg PRN Q8HRS PRN IV NAUSEA/VOMITING; Start 06/18/16 at 15:45; Stop 06/19/16 at 15:44 Fentanyl Citrate 50 mcg 50 mcg PRN Q2HR PRN IV PAIN; Start 06/18/16 at 15:45; Stop 06/19/16 at 15:44 Sodium Chloride (Iv Sodium Chloride 0.9% 1000ml Bag) 1,000 ml @ 150 mls/hr Q6H40M IV Last administered on 06/19/16 07:32; Start 06/18/16 at 15:40; Stop 06/19/16 at 15:39 Ondansetron HCl (Zofran) 4 mg PRN Q6HRS PRN IV NAUSEA/VOMITING; Start 06/18/16 at 18:30 Pantoprazole Sodium (Protonix Vial) 40 mg DAILYAC IVP ; Start 06/19/16 at 07:30 Heparin Sodium (Porcine) 5,000 unit Q8HRS SQ Last administered on 06/19/16 06: 40; Start 06/18/16 at 22:00 Insulin Aspart (Novolog) 0-9 UNITS QIDACHS SQ ; Start 06/18/16 at 21:00; Stop at 00:18; Status DC Dextrose 12.5 gm 12.5 gm PRN Q15MIN PRN IV SEE COMMENTS; Start 06/18/16 at 18: 30 Sodium Bicarbonate 150 meq/Sterile Water 1,150 ml @ 100 mls/hr [id number] PRN IV . ; Start 06/18/16 at 18:30; Stop 06/18/16 at 20:13; Status DC Potassium Chloride 50 ml @ 50 mls/hr 1X ONCE IV ; Start 06/18/16 at 19:45; Stop 06/18/16 at 20:44; Status UNV Potassium Phosphate 10 mmol/ Sodium Chloride 103.3333 ml @ 51.667 m... Q2H IV Last administered on 06/18/16 22:00; Start 06/18/16 at 20:00; Stop 06/18/16 at 23:59; Status DC Potassium Chloride (KCl Premix 10meq) 100 ml @ 100 mls/hr Q1H IV ; Start at 20:00; Stop 06/18/16 at 20:13; Status DC Gadobutrol (Gadavist) 7.5 mmol 1X ONCE IV Last administered on 06/18/16 23:10 ; Start 06/18/16 at 23:15; Stop 06/18/16 at 23:16; Status DC Insulin Aspart 0-9 UNITS Q6HRS SQ ; Start 06/19/16 at 06:00 Midazolam HCl 100 ml @ As Directed STK-MED ONCE IV ; Start 06/19/16 at 02:22; Stop 06/19/16 at 02:23; Status DC Midazolam HCl (Versed 100mg/ 100ml Premix) 100 ml @ 0 mls/hr CONT PRN IV SEE I/ O RECORD Last administered on 06/19/16 02:48; Start 06/19/16 at 02:30 Vitals/I & O Vital Sign - Last 24 Hours 06/18/16 06/18/16 06/18/16 06/18/16 14:04 14:15 14:18 14:28 Temp 97.9 97.9 Pulse 72 106 116 116 Resp B/P 02/07 170/81 156/71 152/70 Pulse Ox 95 94 100 O2 Delivery Bag Valve Mask Bag Valve Mask Ventilator Ventilator O2 Flow Rate 15 40 40 06/18/16 06/18/16 06/18/16 06/18/16 14:38 14:43 14:48 14:58 Pulse 122 136 138 Resp B/P 141/65 146/74 127/62 Pulse Ox 100 97 96 94 O2 Delivery Ventilator Ventilator Ventilator Ventilator O2 Flow Rate 40 40 40 06/18/16 06/18/16 06/18/16 06/18/16 15:08 15:18 15:28 15:38 Pulse 138 132 122 142 Resp B/P 124/64 124/63 129/66 143/61 Pulse Ox 92 91 92 90 O2 Delivery Ventilator Ventilator Ventilator Ventilator O2 Flow Rate 40 50 50 50 06/18/16 06/18/16 06/18/16 06/18/16 15:48 15:58 16:08 16:18 Pulse 104 106 108 108 Resp B/P 101/58 98/58 105/56 99/58 Pulse Ox 93 90 90 90 O2 Delivery Ventilator Ventilator Ventilator Ventilator O2 Flow Rate 50 50 50 50 06/18/16 06/18/16 06/18/16 06/18/16 16:28 16:38 16:48 16:58 Pulse 114 106 104 118 Resp B/P 113/63 105/56 105/58 125/74 Pulse Ox 93 94 95 97 O2 Delivery Ventilator Ventilator Ventilator Ventilator O2 Flow Rate 50 50 50 50 06/18/16 06/18/16 06/18/16 06/18/16 17:08 17:18 17:18 17:20 Temp 98.0 98.0 Pulse 110 116 Resp B/P 133/85 126/70 Pulse Ox 98 99 98 O2 Delivery Ventilator Ventilator Ventilator O2 Flow Rate 50 50 06/18/16 06/18/16 06/18/16 06/18/16 17:28 17:38 17:48 17:58 Pulse 100 98 97 94 Resp B/P 109/58 100/61 99/61 123/75 Pulse Ox 99 99 99 99 O2 Delivery Ventilator Ventilator Ventilator Ventilator O2 Flow Rate 50 50 50 50 06/18/16 06/18/16 06/18/16 06/18/16 18:15 18:15 18:20 18:30 Temp 98.2 98.2 Pulse 120 110 94 Resp B/P 127/66 127/66 94/62 Pulse Ox 99 99 99 O2 Delivery Mechanical Ventilator Ventilator Ventilator Ventilator O2 Flow Rate 50.0 06/18/16 06/18/16 06/18/16 06/18/16 19:00 19:30 20:00 20:00 Temp 97.5 97.5 Pulse 88 82 80 Resp B/P 91/64 100/67 108/73 Pulse Ox 100 100 100 O2 Delivery Ventilator Ventilator Ventilator Mechanical Ventilator 06/18/16 06/18/16 06/18/16 06/18/16 20:30 20:50 21:00 22:00 Pulse 76 72 72 Resp 26 26 26 B/P 98/68 93/66 94/68 Pulse Ox 100 98 100 100 O2 Delivery Ventilator Ventilator Ventilator Ventilator 06/18/16 06/18/16 06/19/16 06/19/16 23:00 23:30 00:00 00:00 Temp 97.4 97.4 Pulse 77 74 70 Resp 26 26 26 B/P 109/76 116/81 116/78 Pulse Ox 100 100 100 O2 Delivery Ventilator Ventilator Mechanical Ventilator Ventilator 06/19/16 06/19/16 06/19/16 06/19/16 00:15 00:26 00:30 01:00 Pulse 66 66 63 Resp 26 B/P 99/69 105/70 106/76 Pulse Ox 100 100 100 100 O2 Delivery Ventilator Ventilator Ventilator Ventilator 06/19/16 06/19/16 06/19/16 06/19/16 02:00 02:07 03:00 04:00 Pulse 65 61 Resp 26 B/P 104/74 94/66 Pulse Ox 100 100 100 O2 Delivery Ventilator Ventilator Ventilator Mechanical Ventilator 06/19/16 06/19/16 06/19/16 06/19/16 04:00 04:21 05:00 05:57 Temp 97.5 97.5 Pulse 63 64 Resp B/P 94/65 97/66 Pulse Ox 100 100 100 100 O2 Delivery Ventilator Ventilator Ventilator Ventilator 06/19/16 06/19/16 06/19/16 06/19/16 06:00 07:00 08:00 08:00 Temp 97.6 97.6 Pulse 64 73 75 Resp 26 B/P 93/63 102/70 103/70 Pulse Ox 100 99 100 O2 Delivery Ventilator Ventilator Ventilator Mechanical Ventilator Intake and Output 06/18/16 06/18/16 06/19/16 15:00 23:00 07:00 Intake Total 2205 ml 2389 ml Output Total 1070 ml 415 ml Balance 1135 ml 1974 ml VAN [email or web address] MD Jun 19, 2016 08:35
[2016-06-19 08:46] LABS: FIO2 ABG 50
[2016-06-19] MEDS: LEVETIRACETAM 500 MG in IV NORMAL SALINE 100ML 100 ML IV SCH ×2 (09:35→21:56)
--- NOTE | 2016-06-19 09:41 | PDOC2 ---
ANGEL CISNEROS COUPLER 06/19/16 0941: CARDIAC CONSULT DATE OF CONSULT Date of Consult DATE: 06/19/16 TIME: 09:13 REASON FOR CONSULT Reason for Consult: Cardiac arrest REFERRING PHYSICIAN Referring Physician: Dr. Dunbar SOURCE Source: Chart review HISTORY OF PRESENT ILLNESS HISTORY OF PRESENT ILLNESS This is a 45 yo male who was found down at an apartment complex for an unknown amount of time. EMS called. Per family, patient was driving and pulled over at complex. Had interview at 1pm; found around 2pm. Patient unresponsive with agonal breathing upon EMS arrival. Patient presented to ED with agonal respirations. Witnessed seizure episode in ED followed by agonal respirations and eventual respiratory arrest. Intubated in ED. Coded with ROSC after approximately [address] notable for intracranial masses, suspicion of metastatic disease and CXR with bilateral pulmonary nodule, both of which are new findings. Initial labs showed significant hyperkalemia and hypercalcemia. Blood gases consistent with metabolic acidosis. Information obtained from chart review as patient is intubated. Family reports no medical history. No recent reports of chest pain, palpitations, dizziness, diaphoresis, SOA, or nausea/ vomiting. Occasional SWIFT, recently. PAST MEDICAL HISTORY Cardiovascular: No pertinent hx Pulmonary: No pertinent hx GI: No pertinent hx Heme/Onc: No pertinent hx Hepatobiliary: No pertinent hx Psych: No pertinent hx Rheumatologic: No pertinent hx Infectious disease: No pertinent hx ENT: No pertinent hx Renal/: No pertinent hx Endocrine: No pertinent hx Dermatology: No pertinent hx PAST SURGICAL HISTORY Past Surgical History: No pertinent history FAMILY HISTORY Family History: Cancer (lung ), Coronary Artery Disease, Hypertension SOCIAL HISTORY Smoke: <1 pack per day ALCOHOL: none Drugs: None Lives: with Family CURRENT MEDICATIONS CURRENT MEDICATIONS Current Medications Medications (Trade) Dose Ordered Sig/Heydi Route PRN Reason Start Time Stop Time Status Last Admin Dose Admin Sodium Chloride 1,000 ml @ 1,000 mls/hr 1X ONCE IV 06/18/16 14:30 06/18/16 15:29 DC 06/18/16 14:51 Sodium Chloride (Iv Sodium Chloride 0.9% 1000ml Bag) 1,000 ml @ 1,000 mls/hr Q1H IV 06/18/16 14:29 06/18/16 15:28 DC 06/18/16 16:00 Dextrose 25 gm 1X ONCE IV 06/18/16 14:30 06/18/16 14:39 DC 06/18/16 15:26 Insulin Human Regular (Novolin R Vial) 10 unit 1X ONCE IV 06/18/16 14:30 06/18/16 14:39 DC 06/18/16 15:29 Calcium Gluconate 1000 mg 1,000 mg 1X ONCE IVP 06/18/16 14:30 06/18/16 14:39 DC 06/18/16 15:30 Sodium Bicarbonate 50 meq/Dextrose/ Sodium Chloride 1,050 ml @ 125 mls/hr 1X ONCE IV 06/18/16 14:45 06/18/16 23:08 DC 06/18/16 15:25 Sodium Bicarbonate/ Dextrose/Sodium Chloride (Iv D5% - 1/2 NS) 1,150 ml @ 125 mls/hr 1X ONCE IV 06/18/16 15:15 06/19/16 00:26 DC 06/18/16 15:15 Dexamethasone Sodium Phosphate (Decadron) 10 mg 1X ONCE IV 06/18/16 15:15 06/18/16 15:22 DC 06/18/16 15:51 Dexamethasone Sodium Phosphate 4 mg 4 mg Q6HRS IV 06/18/16 18:00 06/19/16 06:39 Levetiracetam/ Sodium Chloride (Keppra/Iv Sodium Chloride 0.9% 100ml) 105 ml @ 400 mls/hr Q12HR IV 06/18/16 16:00 06/18/16 21:59 Lorazepam (Ativan) 1 mg 1X ONCE IV 06/18/16 15:45 06/18/16 15:46 DC 06/18/16 14:07 Fentanyl Citrate 50 mcg 50 mcg 1X ONCE IV 06/18/16 15:45 06/18/16 15:46 DC 06/18/16 15:40 Midazolam HCl 100 ml @ 0 mls/hr 1X ONCE IV 06/18/16 15:45 06/18/16 15:46 DC 06/18/16 15:59 Sodium Chloride (Iv Sodium Chloride 0.9% 1000ml Bag) 1,000 ml @ 150 mls/hr Q6H40M IV 06/18/16 15:40 06/19/16 15:39 06/19/16 07:32 Heparin Sodium (Porcine) 5000 unit 5,000 unit Q8HRS SQ 06/18/16 22:00 06/19/16 06:40 Potassium Phosphate/Sodium Chloride (Potassium Phosphate/Iv Sodium Chloride 0.9% 100ml) 103.3333 ml @ 51.667 m... Q2H IV 06/18/16 20:00 06/18/16 23:59 DC 06/18/16 22:00 Gadobutrol 7.5 mmol 7.5 mmol 1X ONCE IV 06/18/16 23:15 06/18/16 23:16 DC 06/18/16 23:10 Midazolam HCl (Versed 100mg/ 100ml Premix) 100 ml @ 0 mls/hr CONT PRN IV SEE I/O RECORD 06/19/16 02:30 06/19/16 02:48 ALLERGIES ALLERGIES: Coded Allergies: No Known Drug Allergies (Unverified , 06/18/16) ROS Review of System unobtainable. PHYSICAL EXAM General: Other (intubated/sedated ) HEENT: Atraumatic, Mucous membr. moist/pink Lungs: Clear to auscultation, Other (mechanical ventilation) Heart: Regular rate, Normal S1, Normal S2, Other (distant heart tones) Abdomen: Soft, No tenderness Extremities: No edema, Normal pulses Skin: No significant lesion Neuro: Other (sedated ) Psych/Mental Status: Other (unable to assess ) MUSCULOSKELETAL: No deformity, No swelling VITALS VITALS Vital Signs Date Time Temp Pulse Resp B/P Pulse Ox O2 Delivery O2 Flow Rate FiO2 06/19/16 09:00 82 22 102/78 98 Ventilator 06/19/16 08:00 97.6 97.6 06/18/16 18:20 50.0 LABS Lab: Laboratory Tests Test 06/18/16 14:20 06/18/16 14:25 06/18/16 14:26 06/18/16 14:45 White Blood Count 18.3x10^3/uL (4.0-11.0) Red Blood Count 5.10x10^6/uL (4.30-5.70) Hemoglobin 12.2g/dL (13.0-17.5) Hematocrit 41.9% (39.0-53.0) Mean Corpuscular Volume 82fL (79-100) Mean Corpuscular Hemoglobin 24pg (25-35) Mean Corpuscular Hemoglobin Concent 29g/dL (31-37) Red Cell Distribution Width 16.8% (11.5-14.5) Platelet Count 541x10^3/uL (140-400) Neutrophils (%) (Auto) 75% (31-73) Lymphocytes (%) (Auto) 21% (24-48) Monocytes (%) (Auto) 3% (0-9) Eosinophils (%) (Auto) 0% (0-3) Basophils (%) (Auto) 1% (0-3) Neutrophils # (Auto) 13.6x10^3uL (1.8-7.7) Lymphocytes # (Auto) 3.8x10^3/uL (1.0-4.8) Monocytes # (Auto) 0.6x10^3/uL (0.0-1.1) Eosinophils # (Auto) 0.1x10^3/uL (0.0-0.7) Basophils # (Auto) 0.2x10^3/uL (0.0-0.2) Segmented Neutrophils % 62% (35-66) Band Neutrophils % 6% (0-9) Lymphocytes % 27% (24-48) Monocytes % 3% (0-10) Eosinophils % 1% (0-5) Basophils % 1% (0-3) Platelet Estimate Increased (ADEQUATE) Hypochromasia Slight Poikilocytosis Slight Anisocytosis Slight Prothrombin Time 14.7SEC (11.7-14.0) Prothromb Time International Ratio 1.2 (0.8-1.1) Sodium Level 146mmol/L (136-145) Potassium Level 7.6mmol/L (3.5-5.1) Chloride Level 106mmol/L (98-107) Carbon Dioxide Level 19mmol/L (21-32) Anion Gap 21 (6-14) 23mmol/L (6-14) Blood Urea Nitrogen 14mg/dL (8-26) Creatinine 1.8mg/dL (0.7-1.3) Estimated GFR (Cockcroft-Gault) 33.8 Glucose Level 259mg/dL (70-99) 245mg/dL (70-99) Calcium Level 12.6mg/dL (8.5-10.1) Creatine Kinase 40U/L (39-308) Troponin I Quantitative < 0.017ng/mL (0.000-0.055) Bedside Troponin I 0.01ng/ml (<0.08) Bedside Hemoglobin 14.3g/dL (14-18) Bedside Hematocrit 42% (37-52) Bedside Sodium 148mmol/L (135-145) Bedside Potassium 7.0mmol/L (3.5-5.0) Bedside Chloride 113mmol/L (98-110) Bedside Total CO2 20mmol/L (23-32) Bedside Blood Urea Nitrogen 13mg/dL (8-26) Bedside Creatinine 1.2mg/dL (0.5-1.4) Bedside Ionized Calcium (Yuly) 1.52mmol/L (1.13-1.32) Urine Opiates Screen Neg (NEG) Urine Methadone Screen Neg (NEG) Urine Barbiturates Neg (NEG) Urine Phencyclidine Screen Neg (NEG) Urine Amphetamine/Methamphetamine Neg (NEG) Urine Benzodiazepines Screen Neg (NEG) Urine Cocaine Screen Neg (NEG) Urine Cannabinoids Screen Neg (NEG) Urine Ethyl Alcohol Neg (NEG) Test 06/18/16 15:20 06/18/16 18:15 06/18/16 19:00 06/19/16 00:31 O2 Saturation 90% (92-99) Arterial Blood pH 7.27 (7.35-7.45) Arterial Blood pCO2 at Patient Temp 31mmHg (35-46) Arterial Blood pO2 at Patient Temp 70mmHg (65-108) Arterial Blood HCO3 14mmol/L (21-28) Arterial Blood Base Excess -12mmol/L (-3-3) FiO2 40.0 Nasal Screen MRSA (PCR) Negative (Negative) Sodium Level 139mmol/L (136-145) Potassium Level 3.3mmol/L (3.5-5.1) Chloride Level 104mmol/L (98-107) Carbon Dioxide Level 25mmol/L (21-32) Anion Gap 10 (6-14) Blood Urea Nitrogen 13mg/dL (8-26) Creatinine 1.1mg/dL (0.7-1.3) Estimated GFR (Cockcroft-Gault) 71.8 Glucose Level 169mg/dL (70-99) Calcium Level 8.9mg/dL (8.5-10.1) Phosphorus Level 1.5mg/dL (2.6-4.7) Magnesium Level 2.2mg/dL (1.8-2.4) Creatine Kinase 225U/L (39-308) Creatine Kinase MB (Mass) 3.3ng/mL (0.0-3.6) Creatine Kinase MB Relative Index 1.5% (0-4) Albumin 2.0g/dL (3.4-5.0) Glucose (Fingerstick) 150mg/dL (70-99) Test 06/19/16 06:25 06/19/16 08:00 White Blood Count 10.5x10^3/uL (4.0-11.0) Red Blood Count 3.53x10^6/uL (4.30-5.70) Hemoglobin 8.5g/dL (13.0-17.5) Hematocrit 26.6% (39.0-53.0) Mean Corpuscular Volume 75fL (79-100) Mean Corpuscular Hemoglobin 24pg (25-35) Mean Corpuscular Hemoglobin Concent 32g/dL (31-37) Red Cell Distribution Width 15.8% (11.5-14.5) Platelet Count 328x10^3/uL (140-400) Neutrophils (%) (Auto) 86% (31-73) Lymphocytes (%) (Auto) 10% (24-48) Monocytes (%) (Auto) 3% (0-9) Eosinophils (%) (Auto) 0% (0-3) Basophils (%) (Auto) 1% (0-3) Neutrophils # (Auto) 9.0x10^3uL (1.8-7.7) Lymphocytes # (Auto) 1.0x10^3/uL (1.0-4.8) Monocytes # (Auto) 0.4x10^3/uL (0.0-1.1) Eosinophils # (Auto) 0.0x10^3/uL (0.0-0.7) Basophils # (Auto) 0.1x10^3/uL (0.0-0.2) Segmented Neutrophils % 77% (35-66) Band Neutrophils % 9% (0-9) Lymphocytes % 11% (24-48) Monocytes % 3% (0-10) Platelet Estimate Adequate (ADEQUATE) Hypochromasia Present Anisocytosis Present Sodium Level 140mmol/L (136-145) Potassium Level 3.9mmol/L (3.5-5.1) Chloride Level 106mmol/L (98-107) Carbon Dioxide Level 21mmol/L (21-32) Anion Gap 13 (6-14) Blood Urea Nitrogen 15mg/dL (8-26) Creatinine 1.2mg/dL (0.7-1.3) Estimated GFR (Cockcroft-Gault) 64.9 Glucose Level 132mg/dL (70-99) Calcium Level 9.1mg/dL (8.5-10.1) O2 Saturation 98% (92-99) Arterial Blood pH 7.52 (7.35-7.45) Arterial Blood pCO2 at Patient Temp 26mmHg (35-46) Arterial Blood pO2 at Patient Temp 130mmHg (75-108) Arterial Blood HCO3 21mmol/L (21-28) Arterial Blood Base Excess -1mmol/L (-3-3) FiO2 50 ASSESSMENT/PLAN ASSESSMENT/PLAN 1. S/p Cardiopulmonary arrest, POA; multifactorial given significant lytes abnormalities, seizures, and brain metastases 2. Acute respiratory failure; s/p intubation 2. Intracranial masses, new finding; likely metastatic CA 3. Bilateral pulmonary nodules; primary source? 4. Seizures; on Keppra 5. Hypercalcemia, POA; corrected 6. Hyperkalemia, POA; corrected 7. Metabolic acidosis 8. ARINA Recommendations Monitor lytes; correction as warranted ventilator management per pulmonary Chest CT when stable HemOnc suggesting stage IV, incurable malignancy; no further cardiac workup warranted at this time. prognosis guarded; palliative care consulted. continue supportive care Problems: JENNIFFER TEIXEIRA MD 06/20/16 0716: CARDIAC CONSULT ALLERGIES ALLERGIES: Coded Allergies: No Known Drug Allergies (Unverified , 06/18/16) ASSESSMENT/PLAN ASSESSMENT/PLAN Patient seen and examined 06/19/16. Agree with HEAT TREAT WORKER's assessment and plan. No significant arrhythmias noted on telemetry. Continue vent management per pulmonary team. Palliative care consulted for metastatic cancer. No further cardiac workup is indicated at this time. Thank you for the consultation. Problems: BURKE CISNEROSILY SERVANDO Jun 19, 2016 09:41 JENNIFFER TEIXEIRA MD Jun 20, 2016 07:16
--- NOTE | 2016-06-19 09:59 | PDOC ---
PROGRESS NOTES Assessment Problems Medical Problems: (1) Acidosis Status: Acute (2) Hyperkalemia Status: Acute (3) Mass, brain Status: Acute (4) Respiratory failure Status: Acute Multiple brain mets Plan Versed drip, keep sedated today IV levetiracetam Decadron Neurosurgery following, discussed with Dr. Mack Once stabilized, CT of chest/abdomen/pelvis, brain MRI, aim to do this tomorrow ICU care Discussed with family Subjective none Objective Vital Signs Date Time Temp Pulse Resp B/P Pulse Ox O2 Delivery O2 Flow Rate FiO2 06/19/16 09:00 82 22 102/78 98 Ventilator 06/19/16 08:00 97.6 97.6 06/18/16 18:20 50.0 Intake and Output 06/19/16 07:00 Intake Total 4594 ml Output Total 1485 ml Balance 3109 ml Intake Oral 0 ml IV Total 4594 ml Output Urine Total 1185 ml Gastric Drainage Total 300 ml PHYSICAL EXAM Sedated on vent PERRL no extraocular movements No pain response D.T.R.s 1+, plantars silent Coughs with suctioning, according to nurse Review of Relevant I have reviewed the following items augustin (where applicable) has been applied. Labs Laboratory Tests Test 06/18/16 14:20 06/18/16 14:25 06/18/16 14:26 06/18/16 14:45 White Blood Count 18.3x10^3/uL (4.0-11.0) Red Blood Count 5.10x10^6/uL (4.30-5.70) Hemoglobin 12.2g/dL (13.0-17.5) Hematocrit 41.9% (39.0-53.0) Mean Corpuscular Volume 82fL (79-100) Mean Corpuscular Hemoglobin 24pg (25-35) Mean Corpuscular Hemoglobin Concent 29g/dL (31-37) Red Cell Distribution Width 16.8% (11.5-14.5) Platelet Count 541x10^3/uL (140-400) Neutrophils (%) (Auto) 75% (31-73) Lymphocytes (%) (Auto) 21% (24-48) Monocytes (%) (Auto) 3% (0-9) Eosinophils (%) (Auto) 0% (0-3) Basophils (%) (Auto) 1% (0-3) Neutrophils # (Auto) 13.6x10^3uL (1.8-7.7) Lymphocytes # (Auto) 3.8x10^3/uL (1.0-4.8) Monocytes # (Auto) 0.6x10^3/uL (0.0-1.1) Eosinophils # (Auto) 0.1x10^3/uL (0.0-0.7) Basophils # (Auto) 0.2x10^3/uL (0.0-0.2) Segmented Neutrophils % 62% (35-66) Band Neutrophils % 6% (0-9) Lymphocytes % 27% (24-48) Monocytes % 3% (0-10) Eosinophils % 1% (0-5) Basophils % 1% (0-3) Platelet Estimate Increased (ADEQUATE) Hypochromasia Slight Poikilocytosis Slight Anisocytosis Slight Prothrombin Time 14.7SEC (11.7-14.0) Prothromb Time International Ratio 1.2 (0.8-1.1) Sodium Level 146mmol/L (136-145) Potassium Level 7.6mmol/L (3.5-5.1) Chloride Level 106mmol/L (98-107) Carbon Dioxide Level 19mmol/L (21-32) Anion Gap 21 (6-14) 23mmol/L (6-14) Blood Urea Nitrogen 14mg/dL (8-26) Creatinine 1.8mg/dL (0.7-1.3) Estimated GFR (Cockcroft-Gault) 33.8 Glucose Level 259mg/dL (70-99) 245mg/dL (70-99) Calcium Level 12.6mg/dL (8.5-10.1) Creatine Kinase 40U/L (39-308) Troponin I Quantitative < 0.017ng/mL (0.000-0.055) Bedside Troponin I 0.01ng/ml (<0.08) Bedside Hemoglobin 14.3g/dL (14-18) Bedside Hematocrit 42% (37-52) Bedside Sodium 148mmol/L (135-145) Bedside Potassium 7.0mmol/L (3.5-5.0) Bedside Chloride 113mmol/L (98-110) Bedside Total CO2 20mmol/L (23-32) Bedside Blood Urea Nitrogen 13mg/dL (8-26) Bedside Creatinine 1.2mg/dL (0.5-1.4) Bedside Ionized Calcium (Yuly) 1.52mmol/L (1.13-1.32) Urine Opiates Screen Neg (NEG) Urine Methadone Screen Neg (NEG) Urine Barbiturates Neg (NEG) Urine Phencyclidine Screen Neg (NEG) Urine Amphetamine/Methamphetamine Neg (NEG) Urine Benzodiazepines Screen Neg (NEG) Urine Cocaine Screen Neg (NEG) Urine Cannabinoids Screen Neg (NEG) Urine Ethyl Alcohol Neg (NEG) Test 06/18/16 15:20 06/18/16 18:15 06/18/16 19:00 06/19/16 00:31 O2 Saturation 90% (92-99) Arterial Blood pH 7.27 (7.35-7.45) Arterial Blood pCO2 at Patient Temp 31mmHg (35-46) Arterial Blood pO2 at Patient Temp 70mmHg (65-108) Arterial Blood HCO3 14mmol/L (21-28) Arterial Blood Base Excess -12mmol/L (-3-3) FiO2 40.0 Nasal Screen MRSA (PCR) Negative (Negative) Sodium Level 139mmol/L (136-145) Potassium Level 3.3mmol/L (3.5-5.1) Chloride Level 104mmol/L (98-107) Carbon Dioxide Level 25mmol/L (21-32) Anion Gap 10 (6-14) Blood Urea Nitrogen 13mg/dL (8-26) Creatinine 1.1mg/dL (0.7-1.3) Estimated GFR (Cockcroft-Gault) 71.8 Glucose Level 169mg/dL (70-99) Calcium Level 8.9mg/dL (8.5-10.1) Phosphorus Level 1.5mg/dL (2.6-4.7) Magnesium Level 2.2mg/dL (1.8-2.4) Creatine Kinase 225U/L (39-308) Creatine Kinase MB (Mass) 3.3ng/mL (0.0-3.6) Creatine Kinase MB Relative Index 1.5% (0-4) Albumin 2.0g/dL (3.4-5.0) Glucose (Fingerstick) 150mg/dL (70-99) Test 06/19/16 06:25 06/19/16 08:00 White Blood Count 10.5x10^3/uL (4.0-11.0) Red Blood Count 3.53x10^6/uL (4.30-5.70) Hemoglobin 8.5g/dL (13.0-17.5) Hematocrit 26.6% (39.0-53.0) Mean Corpuscular Volume 75fL (79-100) Mean Corpuscular Hemoglobin 24pg (25-35) Mean Corpuscular Hemoglobin Concent 32g/dL (31-37) Red Cell Distribution Width 15.8% (11.5-14.5) Platelet Count 328x10^3/uL (140-400) Neutrophils (%) (Auto) 86% (31-73) Lymphocytes (%) (Auto) 10% (24-48) Monocytes (%) (Auto) 3% (0-9) Eosinophils (%) (Auto) 0% (0-3) Basophils (%) (Auto) 1% (0-3) Neutrophils # (Auto) 9.0x10^3uL (1.8-7.7) Lymphocytes # (Auto) 1.0x10^3/uL (1.0-4.8) Monocytes # (Auto) 0.4x10^3/uL (0.0-1.1) Eosinophils # (Auto) 0.0x10^3/uL (0.0-0.7) Basophils # (Auto) 0.1x10^3/uL (0.0-0.2) Segmented Neutrophils % 77% (35-66) Band Neutrophils % 9% (0-9) Lymphocytes % 11% (24-48) Monocytes % 3% (0-10) Platelet Estimate Adequate (ADEQUATE) Hypochromasia Present Anisocytosis Present Sodium Level 140mmol/L (136-145) Potassium Level 3.9mmol/L (3.5-5.1) Chloride Level 106mmol/L (98-107) Carbon Dioxide Level 21mmol/L (21-32) Anion Gap 13 (6-14) Blood Urea Nitrogen 15mg/dL (8-26) Creatinine 1.2mg/dL (0.7-1.3) Estimated GFR (Cockcroft-Gault) 64.9 Glucose Level 132mg/dL (70-99) Calcium Level 9.1mg/dL (8.5-10.1) O2 Saturation 98% (92-99) Arterial Blood pH 7.52 (7.35-7.45) Arterial Blood pCO2 at Patient Temp 26mmHg (35-46) Arterial Blood pO2 at Patient Temp 130mmHg (75-108) Arterial Blood HCO3 21mmol/L (21-28) Arterial Blood Base Excess -1mmol/L (-3-3) FiO2 50 Laboratory Tests Test 06/18/16 14:20 06/18/16 14:25 06/18/16 14:26 06/18/16 14:45 White Blood Count 18.3x10^3/uL (4.0-11.0) Red Blood Count 5.10x10^6/uL (4.30-5.70) Hemoglobin 12.2g/dL (13.0-17.5) Hematocrit 41.9% (39.0-53.0) Mean Corpuscular Volume 82fL (79-100) Mean Corpuscular Hemoglobin 24pg (25-35) Mean Corpuscular Hemoglobin Concent 29g/dL (31-37) Red Cell Distribution Width 16.8% (11.5-14.5) Platelet Count 541x10^3/uL (140-400) Neutrophils (%) (Auto) 75% (31-73) Lymphocytes (%) (Auto) 21% (24-48) Monocytes (%) (Auto) 3% (0-9) Eosinophils (%) (Auto) 0% (0-3) Basophils (%) (Auto) 1% (0-3) Neutrophils # (Auto) 13.6x10^3uL (1.8-7.7) Lymphocytes # (Auto) 3.8x10^3/uL (1.0-4.8) Monocytes # (Auto) 0.6x10^3/uL (0.0-1.1) Eosinophils # (Auto) 0.1x10^3/uL (0.0-0.7) Basophils # (Auto) 0.2x10^3/uL (0.0-0.2) Segmented Neutrophils % 62% (35-66) Band Neutrophils % 6% (0-9) Lymphocytes % 27% (24-48) Monocytes % 3% (0-10) Eosinophils % 1% (0-5) Basophils % 1% (0-3) Platelet Estimate Increased (ADEQUATE) Hypochromasia Slight Poikilocytosis Slight Anisocytosis Slight Prothrombin Time 14.7SEC (11.7-14.0) Prothromb Time International Ratio 1.2 (0.8-1.1) Sodium Level 146mmol/L (136-145) Potassium Level 7.6mmol/L (3.5-5.1) Chloride Level 106mmol/L (98-107) Carbon Dioxide Level 19mmol/L (21-32) Anion Gap 21 (6-14) 23mmol/L (6-14) Blood Urea Nitrogen 14mg/dL (8-26) Creatinine 1.8mg/dL (0.7-1.3) Estimated GFR (Cockcroft-Gault) 33.8 Glucose Level 259mg/dL (70-99) 245mg/dL (70-99) Calcium Level 12.6mg/dL (8.5-10.1) Creatine Kinase 40U/L (39-308) Troponin I Quantitative < 0.017ng/mL (0.000-0.055) Bedside Troponin I 0.01ng/ml (<0.08) Bedside Hemoglobin 14.3g/dL (14-18) Bedside Hematocrit 42% (37-52) Bedside Sodium 148mmol/L (135-145) Bedside Potassium 7.0mmol/L (3.5-5.0) Bedside Chloride 113mmol/L (98-110) Bedside Total CO2 20mmol/L (23-32) Bedside Blood Urea Nitrogen 13mg/dL (8-26) Bedside Creatinine 1.2mg/dL (0.5-1.4) Bedside Ionized Calcium (Yuly) 1.52mmol/L (1.13-1.32) Urine Opiates Screen Neg (NEG) Urine Methadone Screen Neg (NEG) Urine Barbiturates Neg (NEG) Urine Phencyclidine Screen Neg (NEG) Urine Amphetamine/Methamphetamine Neg (NEG) Urine Benzodiazepines Screen Neg (NEG) Urine Cocaine Screen Neg (NEG) Urine Cannabinoids Screen Neg (NEG) Urine Ethyl Alcohol Neg (NEG) Test 06/18/16 15:20 06/18/16 18:15 06/18/16 19:00 06/19/16 00:31 O2 Saturation 90% (92-99) Arterial Blood pH 7.27 (7.35-7.45) Arterial Blood pCO2 at Patient Temp 31mmHg (35-46) Arterial Blood pO2 at Patient Temp 70mmHg (65-108) Arterial Blood HCO3 14mmol/L (21-28) Arterial Blood Base Excess -12mmol/L (-3-3) FiO2 40.0 Nasal Screen MRSA (PCR) Negative (Negative) Sodium Level 139mmol/L (136-145) Potassium Level 3.3mmol/L (3.5-5.1) Chloride Level 104mmol/L (98-107) Carbon Dioxide Level 25mmol/L (21-32) Anion Gap 10 (6-14) Blood Urea Nitrogen 13mg/dL (8-26) Creatinine 1.1mg/dL (0.7-1.3) Estimated GFR (Cockcroft-Gault) 71.8 Glucose Level 169mg/dL (70-99) Calcium Level 8.9mg/dL (8.5-10.1) Phosphorus Level 1.5mg/dL (2.6-4.7) Magnesium Level 2.2mg/dL (1.8-2.4) Creatine Kinase 225U/L (39-308) Creatine Kinase MB (Mass) 3.3ng/mL (0.0-3.6) Creatine Kinase MB Relative Index 1.5% (0-4) Albumin 2.0g/dL (3.4-5.0) Glucose (Fingerstick) 150mg/dL (70-99) Test 06/19/16 06:25 06/19/16 08:00 White Blood Count 10.5x10^3/uL (4.0-11.0) Red Blood Count 3.53x10^6/uL (4.30-5.70) Hemoglobin 8.5g/dL (13.0-17.5) Hematocrit 26.6% (39.0-53.0) Mean Corpuscular Volume 75fL (79-100) Mean Corpuscular Hemoglobin 24pg (25-35) Mean Corpuscular Hemoglobin Concent 32g/dL (31-37) Red Cell Distribution Width 15.8% (11.5-14.5) Platelet Count 328x10^3/uL (140-400) Neutrophils (%) (Auto) 86% (31-73) Lymphocytes (%) (Auto) 10% (24-48) Monocytes (%) (Auto) 3% (0-9) Eosinophils (%) (Auto) 0% (0-3) Basophils (%) (Auto) 1% (0-3) Neutrophils # (Auto) 9.0x10^3uL (1.8-7.7) Lymphocytes # (Auto) 1.0x10^3/uL (1.0-4.8) Monocytes # (Auto) 0.4x10^3/uL (0.0-1.1) Eosinophils # (Auto) 0.0x10^3/uL (0.0-0.7) Basophils # (Auto) 0.1x10^3/uL (0.0-0.2) Segmented Neutrophils % 77% (35-66) Band Neutrophils % 9% (0-9) Lymphocytes % 11% (24-48) Monocytes % 3% (0-10) Platelet Estimate Adequate (ADEQUATE) Hypochromasia Present Anisocytosis Present Sodium Level 140mmol/L (136-145) Potassium Level 3.9mmol/L (3.5-5.1) Chloride Level 106mmol/L (98-107) Carbon Dioxide Level 21mmol/L (21-32) Anion Gap 13 (6-14) Blood Urea Nitrogen 15mg/dL (8-26) Creatinine 1.2mg/dL (0.7-1.3) Estimated GFR (Cockcroft-Gault) 64.9 Glucose Level 132mg/dL (70-99) Calcium Level 9.1mg/dL (8.5-10.1) O2 Saturation 98% (92-99) Arterial Blood pH 7.52 (7.35-7.45) Arterial Blood pCO2 at Patient Temp 26mmHg (35-46) Arterial Blood pO2 at Patient Temp 130mmHg (75-108) Arterial Blood HCO3 21mmol/L (21-28) Arterial Blood Base Excess -1mmol/L (-3-3) FiO2 50 Medications Current Medications Sodium Chloride 1,000 ml @ 1,000 mls/hr 1X ONCE IV Last administered on t 14:51; Start 06/18/16 at 14:30; Stop 06/18/16 at 15:29; Status DC Sodium Chloride (Iv Sodium Chloride 0.9% 1000ml Bag) 1,000 ml @ 1,000 mls/hr Q1H IV Last administered on 06/18/16 16:00; Start 06/18/16 at 14:29; Stop at 15:28; Status DC Dextrose 25 gm 1X ONCE IV Last administered on 06/18/16 15:26; Start at 14:30; Stop 06/18/16 at 14:39; Status DC Insulin Human Regular (Novolin R Vial) 10 unit 1X ONCE IV Last administered on 06/18/16 15:29; Start 06/18/16 at 14:30; Stop 06/18/16 at 14:39; Status DC Calcium Gluconate 1000 mg 1,000 mg 1X ONCE IVP Last administered on 06/18/16 15:30; Start 06/18/16 at 14:30; Stop 06/18/16 at 14:39; Status DC Sodium Bicarbonate 50 meq/Dextrose/ Sodium Chloride 1,050 ml @ 125 mls/hr 1X ONCE IV Last administered on 06/18/16 15:25; Start 06/18/16 at 14:45; Stop at 23:08; Status DC Sodium Bicarbonate/ Dextrose/Sodium Chloride (Iv D5% - 1/2 NS) 1,150 ml @ 125 mls/hr 1X ONCE IV Last administered on 06/18/16 15:15; Start 06/18/16 at 15: 15; Stop 06/19/16 at 00:26; Status DC Sodium Bicarbonate 50 meq 1X ONCE IV ; Start 06/18/16 at 15:15; Stop 06/18/16 at 15:22; Status DC Dexamethasone Sodium Phosphate (Decadron) 10 mg 1X ONCE IV Last administered on 06/18/16 15:51; Start 06/18/16 at 15:15; Stop 06/18/16 at 15:22; Status DC Dexamethasone Sodium Phosphate 4 mg 4 mg Q6HRS IV Last administered on 06:39; Start 06/18/16 at 18:00 Levetiracetam/ Sodium Chloride (Keppra/Iv Sodium Chloride 0.9% 100ml) 105 ml @ 400 mls/hr Q12HR IV Last administered on 06/19/16 09:35; Start 06/18/16 at 16: 00 Lorazepam (Ativan) 1 mg 1X ONCE IV Last administered on 06/18/16 14:07; Start 06/18/16 at 15:45; Stop 06/18/16 at 15:46; Status DC Fentanyl Citrate 50 mcg 50 mcg 1X ONCE IV Last administered on 06/18/16 15:40 ; Start 06/18/16 at 15:45; Stop 06/18/16 at 15:46; Status DC Midazolam HCl (Versed 100mg/ 100ml Premix) 100 ml @ 0 mls/hr 1X ONCE IV Last administered on 06/18/16 15:59; Start 06/18/16 at 15:45; Stop 06/18/16 at 15:46 ; Status DC Ondansetron HCl (Zofran) 4 mg PRN Q8HRS PRN IV NAUSEA/VOMITING; Start 06/18/16 at 15:45; Stop 06/19/16 at 08:53; Status DC Fentanyl Citrate 50 mcg 50 mcg PRN Q2HR PRN IV PAIN; Start 06/18/16 at 15:45; Stop 06/19/16 at 15:44 Sodium Chloride (Iv Sodium Chloride 0.9% 1000ml Bag) 1,000 ml @ 150 mls/hr Q6H40M IV Last administered on 06/19/16 07:32; Start 06/18/16 at 15:40; Stop 06/19/16 at 15:39 Ondansetron HCl (Zofran) 4 mg PRN Q6HRS PRN IV NAUSEA/VOMITING; Start 06/18/16 at 18:30 Pantoprazole Sodium (Protonix Vial) 40 mg DAILYAC IVP Last administered on 06/19 09:35; Start 06/19/16 at 07:30 Heparin Sodium (Porcine) 5,000 unit Q8HRS SQ Last administered on 06/19/16 06: 40; Start 06/18/16 at 22:00 Insulin Aspart (Novolog) 0-9 UNITS QIDACHS SQ ; Start 06/18/16 at 21:00; Stop at 00:18; Status DC Dextrose 12.5 gm 12.5 gm PRN Q15MIN PRN IV SEE COMMENTS; Start 06/18/16 at 18: 30 Sodium Bicarbonate 150 meq/Sterile Water 1,150 ml @ 100 mls/hr [id number] PRN IV . ; Start 06/18/16 at 18:30; Stop 06/18/16 at 20:13; Status DC Potassium Chloride 50 ml @ 50 mls/hr 1X ONCE IV ; Start 06/18/16 at 19:45; Stop 06/18/16 at 20:44; Status UNV Potassium Phosphate 10 mmol/ Sodium Chloride 103.3333 ml @ 51.667 m... Q2H IV Last administered on 06/18/16 22:00; Start 06/18/16 at 20:00; Stop 06/18/16 at 23:59; Status DC Potassium Chloride (KCl Premix 10meq) 100 ml @ 100 mls/hr Q1H IV ; Start at 20:00; Stop 06/18/16 at 20:13; Status DC Gadobutrol (Gadavist) 7.5 mmol 1X ONCE IV Last administered on 06/18/16 23:10 ; Start 06/18/16 at 23:15; Stop 06/18/16 at 23:16; Status DC Insulin Aspart 0-9 UNITS Q6HRS SQ ; Start 06/19/16 at 06:00 Midazolam HCl 100 ml @ As Directed STK-MED ONCE IV ; Start 06/19/16 at 02:22; Stop 06/19/16 at 02:23; Status DC Midazolam HCl 100 ml @ 0 mls/hr CONT PRN IV SEE I/O RECORD Last administered on 06/19/16 09:35; Start 06/19/16 at 02:30 Cefepime HCl/ Sodium Chloride (Maxipime/Iv Sodium Chloride 0.9% 100ml) 100 ml @ 200 mls/hr Q8HRS IV ; Start 06/19/16 at 10:00 Vitals/I & O Vital Sign - Last 24 Hours 06/18/16 06/18/16 06/18/16 06/18/16 14:04 14:15 14:18 14:28 Temp 97.9 97.9 Pulse 72 106 116 116 Resp 26 26 B/P 02/07 170/81 156/71 152/70 Pulse Ox 95 94 100 O2 Delivery Bag Valve Mask Bag Valve Mask Ventilator Ventilator O2 Flow Rate 15 40 40 06/18/16 06/18/16 06/18/16 06/18/16 14:38 14:43 14:48 14:58 Pulse 122 136 138 Resp B/P 141/65 146/74 127/62 Pulse Ox 100 97 96 94 O2 Delivery Ventilator Ventilator Ventilator Ventilator O2 Flow Rate 40 40 40 06/18/16 06/18/16 06/18/16 06/18/16 15:08 15:18 15:28 15:38 Pulse 138 132 122 142 Resp B/P 124/64 124/63 129/66 143/61 Pulse Ox 92 91 92 90 O2 Delivery Ventilator Ventilator Ventilator Ventilator O2 Flow Rate 40 50 50 50 06/18/16 06/18/16 06/18/16 06/18/16 15:48 15:58 16:08 16:18 Pulse 104 106 108 108 Resp B/P 101/58 98/58 105/56 99/58 Pulse Ox 93 90 90 90 O2 Delivery Ventilator Ventilator Ventilator Ventilator O2 Flow Rate 50 50 50 50 06/18/16 06/18/16 06/18/16 06/18/16 16:28 16:38 16:48 16:58 Pulse 114 106 104 118 Resp B/P 113/63 105/56 105/58 125/74 Pulse Ox 93 94 95 97 O2 Delivery Ventilator Ventilator Ventilator Ventilator O2 Flow Rate 50 50 50 50 06/18/16 06/18/16 06/18/16 06/18/16 17:08 17:18 17:18 17:20 Temp 98.0 98.0 Pulse 110 116 Resp B/P 133/85 126/70 Pulse Ox 98 99 98 O2 Delivery Ventilator Ventilator Ventilator O2 Flow Rate 50 50 06/18/16 06/18/16 06/18/16 06/18/16 17:28 17:38 17:48 17:58 Pulse 100 98 97 94 Resp B/P 109/58 100/61 99/61 123/75 Pulse Ox 99 99 99 99 O2 Delivery Ventilator Ventilator Ventilator Ventilator O2 Flow Rate 50 50 50 50 06/18/16 06/18/16 06/18/16 06/18/16 18:15 18:15 18:20 18:30 Temp 98.2 98.2 Pulse 120 110 94 Resp B/P 127/66 127/66 94/62 Pulse Ox 99 99 99 O2 Delivery Mechanical Ventilator Ventilator Ventilator Ventilator O2 Flow Rate 50.0 06/18/16 06/18/16 06/18/16 06/18/16 19:00 19:30 20:00 20:00 Temp 97.5 97.5 Pulse 88 82 80 Resp B/P 91/64 100/67 108/73 Pulse Ox 100 100 100 O2 Delivery Ventilator Ventilator Ventilator Mechanical Ventilator 06/18/16 06/18/16 06/18/16 06/18/16 20:30 20:50 21:00 22:00 Pulse 76 72 72 Resp B/P 98/68 93/66 94/68 Pulse Ox 100 98 100 100 O2 Delivery Ventilator Ventilator Ventilator Ventilator 06/18/16 06/18/16 06/19/16 06/19/16 23:00 23:30 00:00 00:00 Temp 97.4 97.4 Pulse 77 74 70 Resp B/P 109/76 116/81 116/78 Pulse Ox 100 100 100 O2 Delivery Ventilator Ventilator Mechanical Ventilator Ventilator 06/19/16 06/19/16 06/19/16 06/19/16 00:15 00:26 00:30 01:00 Pulse 66 66 63 Resp B/P 99/69 105/70 106/76 Pulse Ox 100 100 100 100 O2 Delivery Ventilator Ventilator Ventilator Ventilator 06/19/16 06/19/16 06/19/16 06/19/16 02:00 02:07 03:00 04:00 Pulse 65 61 Resp B/P 104/74 94/66 Pulse Ox 100 100 100 O2 Delivery Ventilator Ventilator Ventilator Mechanical Ventilator 06/19/16 06/19/16 06/19/16 06/19/16 04:00 04:21 05:00 05:57 Temp 97.5 97.5 Pulse 63 64 Resp B/P 94/65 97/66 Pulse Ox 100 100 100 100 O2 Delivery Ventilator Ventilator Ventilator Ventilator 06/19/16 06/19/16 06/19/16 06/19/16 06:00 07:00 08:00 08:00 Temp 97.6 97.6 Pulse 64 73 75 Resp B/P 93/63 102/70 103/70 Pulse Ox 100 99 100 O2 Delivery Ventilator Ventilator Ventilator Mechanical Ventilator 06/19/16 06/19/16 08:18 09:00 Pulse 82 Resp 22 B/P 102/78 Pulse Ox 100 98 O2 Delivery Ventilator Ventilator Intake and Output 06/18/16 06/18/16 06/19/16 15:00 23:00 07:00 Intake Total 2205 ml 2389 ml Output Total 1070 ml 415 ml Balance 1135 ml 1974 ml JERI HAYES MD Jun 19, 2016 09:59
[2016-06-19] MEDS ORDERED: CEFEPIME HCL 2 GM in IV NORMAL SALINE 100ML 100 ML IV SCH (10:00)
--- NOTE | 2016-06-19 10:30 | CONS ---
DATE OF CONSULTATION: 06/19/2016 REQUESTING PHYSICIAN: Dr. Joycelyn Dunbar. REASON FOR CONSULTATION: Lung nodules and brain metastasis. HISTORY OF PRESENT ILLNESS: The patient is a 45-year-old, gentleman, who has a history of chronic cigarette smoking. He was brought into the Emergency Room on 06/18/2016 for unresponsiveness. The patient was found on the ground in his apartment complex. EMS was called and he was brought into the Emergency Room. He had one episode of seizure in the ER. Then Martha Arteaga was called with pulseless electrical activity (PEA) for about 7 minutes. He was intubated and admitted to the ICU for further evaluation. Chest x-ray on 06/18/2016 revealed bilateral pulmonary nodules concerning for metastatic disease. CT scan of the head and cervical spine on 06/18/2016 revealed low-density masses in the right temporal, parietal, and left frontal lobes, concerning for metastatic disease. MRI of the brain was done on 06/18/2016 that revealed 3 intracranial masses, two of which appear necrotic, the largest is in the right temporal lobe. Findings are compatible with metastatic disease. The right temporal mass was 5.8 x 3.4 x 4.1 cm with associated edema, and there is mild uncal herniation. Right parietal solid nodule measuring 4 mm with surrounding edema, and a left frontal ring-enhancing mass measuring 1.7 cm was noted with edema. Neurology consultation was obtained. The patient was started on Decadron and IV levetiracetam. Neurosurgery has also been consulted. CT chest, abdomen and pelvis will be done when the patient is stable. I discussed with the patient's family who did mention that he recently started having headaches and he started taking aspirin. He did not have any complaints of chest pain, shortness of breath, hemoptysis. No loss of weight or loss of appetite. No fevers, chills, or night sweats. PAST MEDICAL HISTORY: No significant medical problems per family. FAMILY HISTORY: The patient's grandfather had lung cancer. SOCIAL HISTORY: He has history of heavy cigarette smoking and lately he has been a light smoker. REVIEW OF SYSTEMS: A 12-point review of systems was performed. Pertinent positives are mentioned in the history of present illness. Rest of the system review is negative. The patient is intubated and unable to give any history, and hence all the history was obtained from discussion with the medical staff and discussion with the patient's family. PHYSICAL EXAMINATION: GENERAL APPEARANCE: The patient is a 45-year-old gentleman, who is well developed and nourished, in the ICU on mechanical ventilation, and in no acute cardiorespiratory distress. VITAL SIGNS: Blood pressure 102/78, temperature 97.6. HEAD: Atraumatic, normocephalic. EYES: No icterus. CHEST: Bilaterally symmetrical. No crepitations or rhonchi heard. HEART: S1, S2 normal. ABDOMEN: Soft, nontender. No hepatosplenomegaly. CENTRAL NERVOUS SYSTEM: He is unresponsive. PSYCHOLOGIC: Unable to assess as he is unresponsive. LYMPHATICS: No lymphadenopathy. SKIN: No rashes. MUSCULOSKELETAL: No joint effusions. GENITOURINARY: He has a Torre catheter in place. LABORATORY DATA: At the time of admission on 06/18/2016, WBC is 18.3, hemoglobin 12.2, platelet count 541. Sodium 146, potassium was 7.6 at the time of admission, creatinine 1.8, calcium 12.6. Calcium level on 06/19/2016 improved to 9.1. IMPRESSION AND PLAN: 1. Lung nodules with brain masses: Clinically suggestive of primary lung malignancy with brain metastases. However, a CT scan of the chest will be helpful to better define the abnormalities in the lung. This was not done because of his unstable condition. A CT scan of the chest, abdomen and pelvis will be done when he is more stable. I discussed in detail with the patient's family regarding the radiological findings and the clinical impression of stage IV malignancy. I also discussed the need for further workup when stable. Given the current radiological findings, this will be considered a stage IV malignancy, which is incurable and the treatments are only palliative. I also mentioned to the patient and the patient's family that currently he is unstable, in a critical condition, in the ICU on mechanical ventilation, and hence he would not be a candidate for any aggressive treatment options. I will continue aggressive supportive care. In the event that he recovers well from this episode and if his functional status improves, then further palliative treatment such as radiation and/or chemotherapy can be considered. If he does not recover well, I would recommend focusing on comfort care. I discussed with the registered nurse. 2. Hypercalcemia: With the evidence of lung nodules and brain metastases, this is suspicious for hypercalcemia related to malignancy. Calcium has now improved Nephrology consultation appreciated. I would continue to monitor. 3. Brain metastases: He has been started on Decadron and Keppra. Appreciate Neurology consultation. I will also consult Radiation Oncology, Dr. Weller. YAHIR MCKENZIE MD DR: DAYRON/karol JOB#: [id number] / [id number]
--- NOTE | 2016-06-19 10:48 | PDOC ---
Provider Note Provider Note dictated FRANKLIN MANNING MD Jun 19, 2016 10:47
--- NOTE | 2016-06-19 10:58 | PDOC2 ---
PALLIATIVE CARE Palliative Care Note Palliative Care Consult requested by Dr. Dunbar to address goals of care/comfort care. Diagnosis; Brain Mass; acidosis, hypercalcemia, respiratory failure on vent. Sedated with Versed 10 mg/hr. Patient found down at apartment [place]. EMS called --pt with agonal breathing ; sent to ER pt had one seizure in ER the coded, PEA for 7 min. Neurosurgery following, renal, onc consults pending. Spoke with patient's mother and partner. They understand the seriousness of patient condition. Continue with current treatment plan today. DESTINY CROCKER Jun 19, 2016 10:58
--- NOTE | 2016-06-19 11:36 | CONS ---
DATE OF CONSULTATION: ATTENDING PHYSICIAN: Dr. Dunbar. REASON FOR CONSULTATION: Respiratory failure, seizures, lung nodules and brain metastasis. HISTORY OF PRESENT ILLNESS: The patient is a 45-year-old male with history of tobacco use for at least 45 years. He was brought in the Emergency Room on 06/18/2016 for unresponsiveness. EMS was called by his significant other and he had one episode of seizure in the ER. Code blue was called. He had pulseless electrical activity for about 7 minutes. He was intubated. He had another seizure this morning and received Keppra. His imaging study showed a chest x-ray which showed mild bilateral infiltrates and bilateral pulmonary nodules and some left basal atelectasis. He had a brain MRI, which showed 3 intracranial masses, 2 of which appeared to be necrotic, largest one in the right temporal lobe, it suspicious for metastasis. He is sedated. His ABGs were reviewed, which showed a pH of 7.52, pCO2 of 26 and pO2 of 130 on 55% FiO2 on the AC mode. His family is at the bedside in addition to his significant other. PAST MEDICAL HISTORY: History of tobaccoism. Suspect underlying COPD. PAST SURGICAL HISTORY: No recent surgery. FAMILY HISTORY: Grandfather had lung cancer. SOCIAL HISTORY: Heavy tobacco use. REVIEW OF SYSTEMS: Unable to obtain. ALLERGIES: None. MEDICATIONS: Reviewed as listed in the MRAD. PHYSICAL EXAMINATION: GENERAL: He is intubated and sedated. VITAL SIGNS: Blood pressure 103/68, afebrile, pulse ox 97%. HEENT: Sclerae nonicteric. NECK: Supple. LUNGS: Diminished breath sounds. CARDIOVASCULAR: Regular rate and rhythm. ABDOMEN: Soft. EXTREMITIES: No pitting edema. LABORATORY DATA: Reviewed. ABGs as discussed in my history of present illness. BUN 15, creatinine 1.2. INR is 1.2. IMPRESSION: 1. Acute respiratory failure secondary to multifactorial etiologies including cardiac arrest, brain metastasis contributing to seizures. Underlying chronic obstructive pulmonary disease and highly suspected primary lung cancer with brain metastases. 2. Status post code blue with PA for 7 minutes. Cannot exclude anoxic encephalopathy in addition to metabolic encephalopathy from brain metastases. 3. Suspected Underlying chronic obstructive pulmonary disease. 4. Abnormal MRI of the brain with multiple lesions in the brain suspicious for metastasis. RECOMMENDATIONS: 1. Continue with assist control mode and adjust the rate to correct the alkalosis. 2. Continue with present antibiotics. 3. Dexamethasone. 4. Neurology followup. 5. Oncology followup. 6. I had a lengthy discussion with the patient's family at the bedside and also with significant other. They both are approaching for conservative treatment and palliative care approach. There may agree to withdraw care. At this time, I did offer the option of biopsy to confirm the diagnosis and they are not interested in and that seems to be reasonable. I did explain to them that this is a stage IV cancer and it is not curable. Critical care time 37 minutes. FRANKLIN MANNING MD DR: LYNN/karol JOB#: [id number] / [id number] TEE
--- NOTE | 2016-06-19 12:30 | PDOC2 ---
CONSULT Date of Consult Date of Consult DATE: 06/19/16 TIME: 12:25 Reason for Consult Reason for Consult: trauma Referring Physician Referring Physician: ER Identification/Chief Complaint Chief Complaint code Source Source: Chart review History of Present Illness Reason for Visit: Pt vent, sedated admitted after found unresponsive, agonal breathing in ER, coded found to have lung and brain masses Past Medical History Cardiovascular: No pertinent hx Pulmonary: No pertinent hx GI: No pertinent hx Heme/Onc: No pertinent hx Hepatobiliary: No pertinent hx Psych: No pertinent hx Rheumatologic: No pertinent hx Infectious disease: No pertinent hx ENT: No pertinent hx Renal/: No pertinent hx Endocrine: No pertinent hx Dermatology: No pertinent hx Past Surgical History Past Surgical History: No pertinent history Family History Family History: Cancer (lung ), Coronary Artery Disease, Hypertension Social History <1 pack per day ALCOHOL: none Drugs: None Lives: with Family Current Problem List Problem List Problems Medical Problems: (1) Acidosis Status: Acute (2) Hyperkalemia Status: Acute (3) Mass, brain Status: Acute (4) Respiratory failure Status: Acute Current Medications Current Medications Current Medications Sodium Chloride 1,000 ml @ 1,000 mls/hr 1X ONCE IV Last administered on 14:51; Start 06/18/16 at 14:30; Stop 06/18/16 at 15:29; Status DC Sodium Chloride (Iv Sodium Chloride 0.9% 1000ml Bag) 1,000 ml @ 1,000 mls/hr Q1H IV Last administered on 06/18/16 16:00; Start 06/18/16 at 14:29; Stop at 15:28; Status DC Dextrose 25 gm 1X ONCE IV Last administered on 06/18/16 15:26; Start at 14:30; Stop 06/18/16 at 14:39; Status DC Insulin Human Regular (Novolin R Vial) 10 unit 1X ONCE IV Last administered on 06/18/16 15:29; Start 06/18/16 at 14:30; Stop 06/18/16 at 14:39; Status DC Calcium Gluconate 1000 mg 1,000 mg 1X ONCE IVP Last administered on 06/18/16 15:30; Start 06/18/16 at 14:30; Stop 06/18/16 at 14:39; Status DC Sodium Bicarbonate 50 meq/Dextrose/ Sodium Chloride 1,050 ml @ 125 mls/hr 1X ONCE IV Last administered on 06/18/16 15:25; Start 06/18/16 at 14:45; Stop at 23:08; Status DC Sodium Bicarbonate/ Dextrose/Sodium Chloride (Iv D5% - 1/2 NS) 1,150 ml @ 125 mls/hr 1X ONCE IV Last administered on 06/18/16 15:15; Start 06/18/16 at 15: 15; Stop 06/19/16 at 00:26; Status DC Sodium Bicarbonate 50 meq 1X ONCE IV ; Start 06/18/16 at 15:15; Stop 06/18/16 at 15:22; Status DC Dexamethasone Sodium Phosphate (Decadron) 10 mg 1X ONCE IV Last administered on 06/18/16 15:51; Start 06/18/16 at 15:15; Stop 06/18/16 at 15:22; Status DC Dexamethasone Sodium Phosphate 4 mg 4 mg Q6HRS IV Last administered on 12:17; Start 06/18/16 at 18:00 Levetiracetam/ Sodium Chloride (Keppra/Iv Sodium Chloride 0.9% 100ml) 105 ml @ 400 mls/hr Q12HR IV Last administered on 06/19/16 09:35; Start 06/18/16 at 16: 00 Lorazepam (Ativan) 1 mg 1X ONCE IV Last administered on 06/18/16 14:07; Start 06/18/16 at 15:45; Stop 06/18/16 at 15:46; Status DC Fentanyl Citrate 50 mcg 50 mcg 1X ONCE IV Last administered on 06/18/16 15:40 ; Start 06/18/16 at 15:45; Stop 06/18/16 at 15:46; Status DC Midazolam HCl (Versed 100mg/ 100ml Premix) 100 ml @ 0 mls/hr 1X ONCE IV Last administered on 06/18/16 15:59; Start 06/18/16 at 15:45; Stop 06/18/16 at 15:46 ; Status DC Ondansetron HCl (Zofran) 4 mg PRN Q8HRS PRN IV NAUSEA/VOMITING; Start 06/18/16 at 15:45; Stop 06/19/16 at 08:53; Status DC Fentanyl Citrate 50 mcg 50 mcg PRN Q2HR PRN IV PAIN; Start 06/18/16 at 15:45; Stop 06/19/16 at 15:44 Sodium Chloride (Iv Sodium Chloride 0.9% 1000ml Bag) 1,000 ml @ 150 mls/hr Q6H40M IV Last administered on 06/19/16 12:19; Start 06/18/16 at 15:40; Stop 06/19/16 at 15:39 Ondansetron HCl (Zofran) 4 mg PRN Q6HRS PRN IV NAUSEA/VOMITING; Start 06/18/16 at 18:30 Pantoprazole Sodium (Protonix Vial) 40 mg DAILYAC IVP Last administered on 06/19 09:35; Start 06/19/16 at 07:30 Heparin Sodium (Porcine) 5,000 unit Q8HRS SQ Last administered on 06/19/16 12: 23; Start 06/18/16 at 22:00 Insulin Aspart (Novolog) 0-9 UNITS QIDACHS SQ ; Start 06/18/16 at 21:00; Stop at 00:18; Status DC Dextrose 12.5 gm 12.5 gm PRN Q15MIN PRN IV SEE COMMENTS; Start 06/18/16 at 18: 30 Sodium Bicarbonate 150 meq/Sterile Water 1,150 ml @ 100 mls/hr [id number] PRN IV . ; Start 06/18/16 at 18:30; Stop 06/18/16 at 20:13; Status DC Potassium Chloride 50 ml @ 50 mls/hr 1X ONCE IV ; Start 06/18/16 at 19:45; Stop 06/18/16 at 20:44; Status UNV Potassium Phosphate 10 mmol/ Sodium Chloride 103.3333 ml @ 51.667 m... Q2H IV Last administered on 06/18/16 22:00; Start 06/18/16 at 20:00; Stop 06/18/16 at 23:59; Status DC Potassium Chloride (KCl Premix 10meq) 100 ml @ 100 mls/hr Q1H IV ; Start at 20:00; Stop 06/18/16 at 20:13; Status DC Gadobutrol (Gadavist) 7.5 mmol 1X ONCE IV Last administered on 06/18/16 23:10 ; Start 06/18/16 at 23:15; Stop 06/18/16 at 23:16; Status DC Insulin Aspart 0-9 UNITS Q6HRS SQ ; Start 06/19/16 at 06:00 Midazolam HCl 100 ml @ As Directed STK-MED ONCE IV ; Start 06/19/16 at 02:22; Stop 06/19/16 at 02:23; Status DC Midazolam HCl 100 ml @ 0 mls/hr CONT PRN IV SEE I/O RECORD Last administered on 06/19/16 09:35; Start 06/19/16 at 02:30 Cefepime HCl/ Sodium Chloride (Maxipime/Iv Sodium Chloride 0.9% 100ml) 100 ml @ 200 mls/hr Q8HRS IV Last administered on 06/19/16 12:20; Start 06/19/16 at 10:00 Allergies Allergies: Coded Allergies: No Known Drug Allergies (Unverified , 06/18/16) ROS Review of System unable to obtain Physical Exam General: Other (sedated) HEENT: Other (vent) Lungs: Other (mech vent) Heart: Regular rate Abdomen: Soft, No hepatosplenomegaly Extremities: No clubbing, No cyanosis Vitals VITALS Vital Signs Date Time Temp Pulse Resp B/P Pulse Ox O2 Delivery O2 Flow Rate FiO2 06/19/16 11:00 74 22 102/68 97 Ventilator 06/19/16 08:00 97.6 97.6 06/18/16 18:20 50.0 Labs Labs Laboratory Tests Test 06/18/16 14:20 06/18/16 14:25 06/18/16 14:26 06/18/16 14:45 White Blood Count 18.3x10^3/uL (4.0-11.0) Red Blood Count 5.10x10^6/uL (4.30-5.70) Hemoglobin 12.2g/dL (13.0-17.5) Hematocrit 41.9% (39.0-53.0) Mean Corpuscular Volume 82fL (79-100) Mean Corpuscular Hemoglobin 24pg (25-35) Mean Corpuscular Hemoglobin Concent 29g/dL (31-37) Red Cell Distribution Width 16.8% (11.5-14.5) Platelet Count 541x10^3/uL (140-400) Neutrophils (%) (Auto) 75% (31-73) Lymphocytes (%) (Auto) 21% (24-48) Monocytes (%) (Auto) 3% (0-9) Eosinophils (%) (Auto) 0% (0-3) Basophils (%) (Auto) 1% (0-3) Neutrophils # (Auto) 13.6x10^3uL (1.8-7.7) Lymphocytes # (Auto) 3.8x10^3/uL (1.0-4.8) Monocytes # (Auto) 0.6x10^3/uL (0.0-1.1) Eosinophils # (Auto) 0.1x10^3/uL (0.0-0.7) Basophils # (Auto) 0.2x10^3/uL (0.0-0.2) Segmented Neutrophils % 62% (35-66) Band Neutrophils % 6% (0-9) Lymphocytes % 27% (24-48) Monocytes % 3% (0-10) Eosinophils % 1% (0-5) Basophils % 1% (0-3) Platelet Estimate Increased (ADEQUATE) Hypochromasia Slight Poikilocytosis Slight Anisocytosis Slight Prothrombin Time 14.7SEC (11.7-14.0) Prothromb Time International Ratio 1.2 (0.8-1.1) Sodium Level 146mmol/L (136-145) Potassium Level 7.6mmol/L (3.5-5.1) Chloride Level 106mmol/L (98-107) Carbon Dioxide Level 19mmol/L (21-32) Anion Gap 21 (6-14) 23mmol/L (6-14) Blood Urea Nitrogen 14mg/dL (8-26) Creatinine 1.8mg/dL (0.7-1.3) Estimated GFR (Cockcroft-Gault) 33.8 Glucose Level 259mg/dL (70-99) 245mg/dL (70-99) Calcium Level 12.6mg/dL (8.5-10.1) Creatine Kinase 40U/L (39-308) Troponin I Quantitative < 0.017ng/mL (0.000-0.055) Bedside Troponin I 0.01ng/ml (<0.08) Bedside Hemoglobin 14.3g/dL (14-18) Bedside Hematocrit 42% (37-52) Bedside Sodium 148mmol/L (135-145) Bedside Potassium 7.0mmol/L (3.5-5.0) Bedside Chloride 113mmol/L (98-110) Bedside Total CO2 20mmol/L (23-32) Bedside Blood Urea Nitrogen 13mg/dL (8-26) Bedside Creatinine 1.2mg/dL (0.5-1.4) Bedside Ionized Calcium (Yuly) 1.52mmol/L (1.13-1.32) Urine Opiates Screen Neg (NEG) Urine Methadone Screen Neg (NEG) Urine Barbiturates Neg (NEG) Urine Phencyclidine Screen Neg (NEG) Urine Amphetamine/Methamphetamine Neg (NEG) Urine Benzodiazepines Screen Neg (NEG) Urine Cocaine Screen Neg (NEG) Urine Cannabinoids Screen Neg (NEG) Urine Ethyl Alcohol Neg (NEG) Test 06/18/16 15:20 06/18/16 18:15 06/18/16 19:00 06/19/16 00:31 O2 Saturation 90% (92-99) Arterial Blood pH 7.27 (7.35-7.45) Arterial Blood pCO2 at Patient Temp 31mmHg (35-46) Arterial Blood pO2 at Patient Temp 70mmHg (65-108) Arterial Blood HCO3 14mmol/L (21-28) Arterial Blood Base Excess -12mmol/L (-3-3) FiO2 40.0 Nasal Screen MRSA (PCR) Negative (Negative) Sodium Level 139mmol/L (136-145) Potassium Level 3.3mmol/L (3.5-5.1) Chloride Level 104mmol/L (98-107) Carbon Dioxide Level 25mmol/L (21-32) Anion Gap 10 (6-14) Blood Urea Nitrogen 13mg/dL (8-26) Creatinine 1.1mg/dL (0.7-1.3) Estimated GFR (Cockcroft-Gault) 71.8 Glucose Level 169mg/dL (70-99) Calcium Level 8.9mg/dL (8.5-10.1) Phosphorus Level 1.5mg/dL (2.6-4.7) Magnesium Level 2.2mg/dL (1.8-2.4) Creatine Kinase 225U/L (39-308) Creatine Kinase MB (Mass) 3.3ng/mL (0.0-3.6) Creatine Kinase MB Relative Index 1.5% (0-4) Albumin 2.0g/dL (3.4-5.0) Glucose (Fingerstick) 150mg/dL (70-99) Test 06/19/16 06:25 06/19/16 08:00 06/19/16 12:14 White Blood Count 10.5x10^3/uL (4.0-11.0) Red Blood Count 3.53x10^6/uL (4.30-5.70) Hemoglobin 8.5g/dL (13.0-17.5) Hematocrit 26.6% (39.0-53.0) Mean Corpuscular Volume 75fL (79-100) Mean Corpuscular Hemoglobin 24pg (25-35) Mean Corpuscular Hemoglobin Concent 32g/dL (31-37) Red Cell Distribution Width 15.8% (11.5-14.5) Platelet Count 328x10^3/uL (140-400) Neutrophils (%) (Auto) 86% (31-73) Lymphocytes (%) (Auto) 10% (24-48) Monocytes (%) (Auto) 3% (0-9) Eosinophils (%) (Auto) 0% (0-3) Basophils (%) (Auto) 1% (0-3) Neutrophils # (Auto) 9.0x10^3uL (1.8-7.7) Lymphocytes # (Auto) 1.0x10^3/uL (1.0-4.8) Monocytes # (Auto) 0.4x10^3/uL (0.0-1.1) Eosinophils # (Auto) 0.0x10^3/uL (0.0-0.7) Basophils # (Auto) 0.1x10^3/uL (0.0-0.2) Segmented Neutrophils % 77% (35-66) Band Neutrophils % 9% (0-9) Lymphocytes % 11% (24-48) Monocytes % 3% (0-10) Platelet Estimate Adequate (ADEQUATE) Hypochromasia Present Anisocytosis Present Sodium Level 140mmol/L (136-145) Potassium Level 3.9mmol/L (3.5-5.1) Chloride Level 106mmol/L (98-107) Carbon Dioxide Level 21mmol/L (21-32) Anion Gap 13 (6-14) Blood Urea Nitrogen 15mg/dL (8-26) Creatinine 1.2mg/dL (0.7-1.3) Estimated GFR (Cockcroft-Gault) 64.9 Glucose Level 132mg/dL (70-99) Calcium Level 9.1mg/dL (8.5-10.1) O2 Saturation 98% (92-99) Arterial Blood pH 7.52 (7.35-7.45) Arterial Blood pCO2 at Patient Temp 26mmHg (35-46) Arterial Blood pO2 at Patient Temp 130mmHg (75-108) Arterial Blood HCO3 21mmol/L (21-28) Arterial Blood Base Excess -1mmol/L (-3-3) FiO2 50 Glucose (Fingerstick) 125mg/dL (70-99) Laboratory Tests Test 06/18/16 14:20 06/18/16 14:25 06/18/16 14:26 06/18/16 14:45 White Blood Count 18.3x10^3/uL (4.0-11.0) Red Blood Count 5.10x10^6/uL (4.30-5.70) Hemoglobin 12.2g/dL (13.0-17.5) Hematocrit 41.9% (39.0-53.0) Mean Corpuscular Volume 82fL (79-100) Mean Corpuscular Hemoglobin 24pg (25-35) Mean Corpuscular Hemoglobin Concent 29g/dL (31-37) Red Cell Distribution Width 16.8% (11.5-14.5) Platelet Count 541x10^3/uL (140-400) Neutrophils (%) (Auto) 75% (31-73) Lymphocytes (%) (Auto) 21% (24-48) Monocytes (%) (Auto) 3% (0-9) Eosinophils (%) (Auto) 0% (0-3) Basophils (%) (Auto) 1% (0-3) Neutrophils # (Auto) 13.6x10^3uL (1.8-7.7) Lymphocytes # (Auto) 3.8x10^3/uL (1.0-4.8) Monocytes # (Auto) 0.6x10^3/uL (0.0-1.1) Eosinophils # (Auto) 0.1x10^3/uL (0.0-0.7) Basophils # (Auto) 0.2x10^3/uL (0.0-0.2) Segmented Neutrophils % 62% (35-66) Band Neutrophils % 6% (0-9) Lymphocytes % 27% (24-48) Monocytes % 3% (0-10) Eosinophils % 1% (0-5) Basophils % 1% (0-3) Platelet Estimate Increased (ADEQUATE) Hypochromasia Slight Poikilocytosis Slight Anisocytosis Slight Prothrombin Time 14.7SEC (11.7-14.0) Prothromb Time International Ratio 1.2 (0.8-1.1) Sodium Level 146mmol/L (136-145) Potassium Level 7.6mmol/L (3.5-5.1) Chloride Level 106mmol/L (98-107) Carbon Dioxide Level 19mmol/L (21-32) Anion Gap 21 (6-14) 23mmol/L (6-14) Blood Urea Nitrogen 14mg/dL (8-26) Creatinine 1.8mg/dL (0.7-1.3) Estimated GFR (Cockcroft-Gault) 33.8 Glucose Level 259mg/dL (70-99) 245mg/dL (70-99) Calcium Level 12.6mg/dL (8.5-10.1) Creatine Kinase 40U/L (39-308) Troponin I Quantitative < 0.017ng/mL (0.000-0.055) Bedside Troponin I 0.01ng/ml (<0.08) Bedside Hemoglobin 14.3g/dL (14-18) Bedside Hematocrit 42% (37-52) Bedside Sodium 148mmol/L (135-145) Bedside Potassium 7.0mmol/L (3.5-5.0) Bedside Chloride 113mmol/L (98-110) Bedside Total CO2 20mmol/L (23-32) Bedside Blood Urea Nitrogen 13mg/dL (8-26) Bedside Creatinine 1.2mg/dL (0.5-1.4) Bedside Ionized Calcium (Yuly) 1.52mmol/L (1.13-1.32) Urine Opiates Screen Neg (NEG) Urine Methadone Screen Neg (NEG) Urine Barbiturates Neg (NEG) Urine Phencyclidine Screen Neg (NEG) Urine Amphetamine/Methamphetamine Neg (NEG) Urine Benzodiazepines Screen Neg (NEG) Urine Cocaine Screen Neg (NEG) Urine Cannabinoids Screen Neg (NEG) Urine Ethyl Alcohol Neg (NEG) Test 06/18/16 15:20 06/18/16 18:15 06/18/16 19:00 06/19/16 00:31 O2 Saturation 90% (92-99) Arterial Blood pH 7.27 (7.35-7.45) Arterial Blood pCO2 at Patient Temp 31mmHg (35-46) Arterial Blood pO2 at Patient Temp 70mmHg (65-108) Arterial Blood HCO3 14mmol/L (21-28) Arterial Blood Base Excess -12mmol/L (-3-3) FiO2 40.0 Nasal Screen MRSA (PCR) Negative (Negative) Sodium Level 139mmol/L (136-145) Potassium Level 3.3mmol/L (3.5-5.1) Chloride Level 104mmol/L (98-107) Carbon Dioxide Level 25mmol/L (21-32) Anion Gap 10 (6-14) Blood Urea Nitrogen 13mg/dL (8-26) Creatinine 1.1mg/dL (0.7-1.3) Estimated GFR (Cockcroft-Gault) 71.8 Glucose Level 169mg/dL (70-99) Calcium Level 8.9mg/dL (8.5-10.1) Phosphorus Level 1.5mg/dL (2.6-4.7) Magnesium Level 2.2mg/dL (1.8-2.4) Creatine Kinase 225U/L (39-308) Creatine Kinase MB (Mass) 3.3ng/mL (0.0-3.6) Creatine Kinase MB Relative Index 1.5% (0-4) Albumin 2.0g/dL (3.4-5.0) Glucose (Fingerstick) 150mg/dL (70-99) Test 06/19/16 06:25 06/19/16 08:00 06/19/16 12:14 White Blood Count 10.5x10^3/uL (4.0-11.0) Red Blood Count 3.53x10^6/uL (4.30-5.70) Hemoglobin 8.5g/dL (13.0-17.5) Hematocrit 26.6% (39.0-53.0) Mean Corpuscular Volume 75fL (79-100) Mean Corpuscular Hemoglobin 24pg (25-35) Mean Corpuscular Hemoglobin Concent 32g/dL (31-37) Red Cell Distribution Width 15.8% (11.5-14.5) Platelet Count 328x10^3/uL (140-400) Neutrophils (%) (Auto) 86% (31-73) Lymphocytes (%) (Auto) 10% (24-48) Monocytes (%) (Auto) 3% (0-9) Eosinophils (%) (Auto) 0% (0-3) Basophils (%) (Auto) 1% (0-3) Neutrophils # (Auto) 9.0x10^3uL (1.8-7.7) Lymphocytes # (Auto) 1.0x10^3/uL (1.0-4.8) Monocytes # (Auto) 0.4x10^3/uL (0.0-1.1) Eosinophils # (Auto) 0.0x10^3/uL (0.0-0.7) Basophils # (Auto) 0.1x10^3/uL (0.0-0.2) Segmented Neutrophils % 77% (35-66) Band Neutrophils % 9% (0-9) Lymphocytes % 11% (24-48) Monocytes % 3% (0-10) Platelet Estimate Adequate (ADEQUATE) Hypochromasia Present Anisocytosis Present Sodium Level 140mmol/L (136-145) Potassium Level 3.9mmol/L (3.5-5.1) Chloride Level 106mmol/L (98-107) Carbon Dioxide Level 21mmol/L (21-32) Anion Gap 13 (6-14) Blood Urea Nitrogen 15mg/dL (8-26) Creatinine 1.2mg/dL (0.7-1.3) Estimated GFR (Cockcroft-Gault) 64.9 Glucose Level 132mg/dL (70-99) Calcium Level 9.1mg/dL (8.5-10.1) O2 Saturation 98% (92-99) Arterial Blood pH 7.52 (7.35-7.45) Arterial Blood pCO2 at Patient Temp 26mmHg (35-46) Arterial Blood pO2 at Patient Temp 130mmHg (75-108) Arterial Blood HCO3 21mmol/L (21-28) Arterial Blood Base Excess -1mmol/L (-3-3) FiO2 50 Glucose (Fingerstick) 125mg/dL (70-99) Assessment/Plan Assessment/Plan code, PEA, resp failure lung and brain masses no surgical recs PHILLY KASPER APRN Jun 19, 2016 12:30
[2016-06-19] MEDS ORDERED: PROPOFOL 10 MG/ML (100ML) VIAL. IV ONE (16:00)
[2016-06-19] MEDS ORDERED: PROPOFOL 100 ML IV ONE (16:22)
[2016-06-19] MEDS ORDERED: SODIUM BICARB ADULT 8.4% 50 MEQ/50 ML DISP.SYRIN. ONE (16:26)
[2016-06-19] MEDS ORDERED: EPINEPHRINE 1 MG/10 ML DISP.SYRIN. ONE (16:26)
--- NOTE | 2016-06-19 17:04 | CONS ---
DATE OF CONSULTATION: 06/19/2016 REFERRING PHYSICIAN: Dr. Montiel. 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 No biopsy has been obtained to confirm. The patient is sedated on a ventilator following prior seizure and code in the ER. We were asked to see him regarding palliative treatment in his care. The patient apparently experienced his first seizure just prior to admission. Following this, he was found to be unresponsive and was brought to the Emergency Room and had a second seizure and was intubated. He underwent CT scan of the head on 06/18/2016 which revealed low density masses in the right temporoparietal lobe and left frontal lobe, possibly consistent with metastatic disease. Followup enhanced MRI scan on 06/18/2016 revealed a large 5.8 cm x 3.4 cm x 4.1 cm thin ring enhancing mass in the right temporoparietal lobe with edema. There was a similar ring enhancing mass in the medial left frontal lobe measuring 1.7 cm x 1.5 cm x 1.6 cm and a small solid enhancing nodule in the right parietal lobe measuring 4 mm in size, all of which were consistent with likely cystic necrotic metastatic disease. Chest x-ray revealed multiple pulmonary nodules, dominant one in the left apex, worrisome for bronchogenic malignancy or metastatic disease in the chest. He is now sedated on the ventilator. No history has been obtained from him. Family is not yet available for discussion. We anticipate weaning him from the ventilator tomorrow on 06/20/2016. PHYSICAL EXAMINATION: GENERAL: Revealed a sedated gentleman on a ventilator. HEENT: Unremarkable. He otherwise had no palpable cervical or supraclavicular adenopathy. He had no scleral icterus noted. Pupils were symmetric. No dilated pupil seen. He was unresponsive to pain stimulus. SOCIAL HISTORY: Obtained from friends. He lives with a male anger control counselor and has a 22-year-old son. He was in the [place] for 4 years and has been an active smoker in the past. LABORATORY STUDIES: On 06/19/2016, hemoglobin 8.5, white count 10,500, and platelet count 328,000. Chemistry panel revealed normal electrolytes with creatinine 1.2. ASSESSMENT AND PLAN: In summary, my impression is that of likely bronchogenic carcinoma of the lung with cystic bulky metastatic disease in his brain. He had significant seizure and was coded and was noted to have some period of hypoxia during his code. His neurologic status is indeterminate given the sedation currently present. His family is not yet available. Depending on his recovery from sedation and his potential for extubation, he may be possibly a candidate for palliative treatment. In a high-functioning patient, there may be a role for debulking the largest right temporal lesion. Given his overall status, there may be little role for either surgery or palliative whole brain radiation therapy, and indeed comfort measures may ultimately be recommended depending on his status during his extubative effort tomorrow. I will review this with the family when available. I reviewed this with his nursing staff and Dr. Davian Arciniega. At this time, he remains a full code. This should also be corrected to a no-code status when the family is available. Thank you for allowing us to participate in his evaluation. ALICE KNIGHT MD DR: CLARISA/karol JOB#: [id number] / [id number] DAVIAN Pate MD
--- NOTE | 2016-06-19 18:41 | PDOC ---
PROGRESS NOTES Subjective Subjective patient seen at 1200 remains sedated on vent, versed drip family at bedside Objective Objective Vital Signs Date Time Temp Pulse Resp B/P Pulse Ox O2 Delivery O2 Flow Rate FiO2 06/19/16 18:00 80 18 96/62 97 Ventilator 06/19/16 16:00 98.2 98.2 06/18/16 18:20 50.0 Intake and Output 06/19/16 07:00 Intake Total 4594 ml Output Total 1485 ml Balance 3109 ml Intake Oral 0 ml IV Total 4594 ml Output Urine Total 1185 ml Gastric Drainage Total 300 ml Physical Exam General: Other (intubated, sedated on vent) Neuro: Other (pupils equal and reactive, localize with right upper ext, no response on the left) Assessment Assessment Problems Medical Problems: (1) Acidosis Status: Acute (2) Hyperkalemia Status: Acute (3) Mass, brain Status: Acute (4) Respiratory failure Status: Acute Plan Plan of Care MRI with 3 abnormal lesions c/w metastatic disease although infectious process can not be completely ruled out family not currently interested in aggressive management CT C/A/P is scheduled for tomorrow Comment Review of Relevant I have reviewed the following items augustin (where applicable) has been applied. Labs Laboratory Tests Test 06/18/16 14:20 06/18/16 14:25 06/18/16 14:26 06/18/16 14:45 White Blood Count 18.3x10^3/uL (4.0-11.0) Red Blood Count 5.10x10^6/uL (4.30-5.70) Hemoglobin 12.2g/dL (13.0-17.5) Hematocrit 41.9% (39.0-53.0) Mean Corpuscular Volume 82fL (79-100) Mean Corpuscular Hemoglobin 24pg (25-35) Mean Corpuscular Hemoglobin Concent 29g/dL (31-37) Red Cell Distribution Width 16.8% (11.5-14.5) Platelet Count 541x10^3/uL (140-400) Neutrophils (%) (Auto) 75% (31-73) Lymphocytes (%) (Auto) 21% (24-48) Monocytes (%) (Auto) 3% (0-9) Eosinophils (%) (Auto) 0% (0-3) Basophils (%) (Auto) 1% (0-3) Neutrophils # (Auto) 13.6x10^3uL (1.8-7.7) Lymphocytes # (Auto) 3.8x10^3/uL (1.0-4.8) Monocytes # (Auto) 0.6x10^3/uL (0.0-1.1) Eosinophils # (Auto) 0.1x10^3/uL (0.0-0.7) Basophils # (Auto) 0.2x10^3/uL (0.0-0.2) Segmented Neutrophils % 62% (35-66) Band Neutrophils % 6% (0-9) Lymphocytes % 27% (24-48) Monocytes % 3% (0-10) Eosinophils % 1% (0-5) Basophils % 1% (0-3) Platelet Estimate Increased (ADEQUATE) Hypochromasia Slight Poikilocytosis Slight Anisocytosis Slight Prothrombin Time 14.7SEC (11.7-14.0) Prothromb Time International Ratio 1.2 (0.8-1.1) Sodium Level 146mmol/L (136-145) Potassium Level 7.6mmol/L (3.5-5.1) Chloride Level 106mmol/L (98-107) Carbon Dioxide Level 19mmol/L (21-32) Anion Gap 21 (6-14) 23mmol/L (6-14) Blood Urea Nitrogen 14mg/dL (8-26) Creatinine 1.8mg/dL (0.7-1.3) Estimated GFR (Cockcroft-Gault) 33.8 Glucose Level 259mg/dL (70-99) 245mg/dL (70-99) Calcium Level 12.6mg/dL (8.5-10.1) Creatine Kinase 40U/L (39-308) Troponin I Quantitative < 0.017ng/mL (0.000-0.055) Bedside Troponin I 0.01ng/ml (<0.08) Bedside Hemoglobin 14.3g/dL (14-18) Bedside Hematocrit 42% (37-52) Bedside Sodium 148mmol/L (135-145) Bedside Potassium 7.0mmol/L (3.5-5.0) Bedside Chloride 113mmol/L (98-110) Bedside Total CO2 20mmol/L (23-32) Bedside Blood Urea Nitrogen 13mg/dL (8-26) Bedside Creatinine 1.2mg/dL (0.5-1.4) Bedside Ionized Calcium (Yuly) 1.52mmol/L (1.13-1.32) Urine Opiates Screen Neg (NEG) Urine Methadone Screen Neg (NEG) Urine Barbiturates Neg (NEG) Urine Phencyclidine Screen Neg (NEG) Urine Amphetamine/Methamphetamine Neg (NEG) Urine Benzodiazepines Screen Neg (NEG) Urine Cocaine Screen Neg (NEG) Urine Cannabinoids Screen Neg (NEG) Urine Ethyl Alcohol Neg (NEG) Test 06/18/16 15:20 06/18/16 18:15 06/18/16 19:00 06/19/16 00:31 O2 Saturation 90% (92-99) Arterial Blood pH 7.27 (7.35-7.45) Arterial Blood pCO2 at Patient Temp 31mmHg (35-46) Arterial Blood pO2 at Patient Temp 70mmHg (65-108) Arterial Blood HCO3 14mmol/L (21-28) Arterial Blood Base Excess -12mmol/L (-3-3) FiO2 40.0 Nasal Screen MRSA (PCR) Negative (Negative) Sodium Level 139mmol/L (136-145) Potassium Level 3.3mmol/L (3.5-5.1) Chloride Level 104mmol/L (98-107) Carbon Dioxide Level 25mmol/L (21-32) Anion Gap 10 (6-14) Blood Urea Nitrogen 13mg/dL (8-26) Creatinine 1.1mg/dL (0.7-1.3) Estimated GFR (Cockcroft-Gault) 71.8 Glucose Level 169mg/dL (70-99) Calcium Level 8.9mg/dL (8.5-10.1) Phosphorus Level 1.5mg/dL (2.6-4.7) Magnesium Level 2.2mg/dL (1.8-2.4) Creatine Kinase 225U/L (39-308) Creatine Kinase MB (Mass) 3.3ng/mL (0.0-3.6) Creatine Kinase MB Relative Index 1.5% (0-4) Albumin 2.0g/dL (3.4-5.0) Glucose (Fingerstick) 150mg/dL (70-99) Test 06/19/16 06:25 06/19/16 08:00 06/19/16 12:14 06/19/16 18:29 White Blood Count 10.5x10^3/uL (4.0-11.0) Red Blood Count 3.53x10^6/uL (4.30-5.70) Hemoglobin 8.5g/dL (13.0-17.5) Hematocrit 26.6% (39.0-53.0) Mean Corpuscular Volume 75fL (79-100) Mean Corpuscular Hemoglobin 24pg (25-35) Mean Corpuscular Hemoglobin Concent 32g/dL (31-37) Red Cell Distribution Width 15.8% (11.5-14.5) Platelet Count 328x10^3/uL (140-400) Neutrophils (%) (Auto) 86% (31-73) Lymphocytes (%) (Auto) 10% (24-48) Monocytes (%) (Auto) 3% (0-9) Eosinophils (%) (Auto) 0% (0-3) Basophils (%) (Auto) 1% (0-3) Neutrophils # (Auto) 9.0x10^3uL (1.8-7.7) Lymphocytes # (Auto) 1.0x10^3/uL (1.0-4.8) Monocytes # (Auto) 0.4x10^3/uL (0.0-1.1) Eosinophils # (Auto) 0.0x10^3/uL (0.0-0.7) Basophils # (Auto) 0.1x10^3/uL (0.0-0.2) Segmented Neutrophils % 77% (35-66) Band Neutrophils % 9% (0-9) Lymphocytes % 11% (24-48) Monocytes % 3% (0-10) Platelet Estimate Adequate (ADEQUATE) Hypochromasia Present Anisocytosis Present Sodium Level 140mmol/L (136-145) Potassium Level 3.9mmol/L (3.5-5.1) Chloride Level 106mmol/L (98-107) Carbon Dioxide Level 21mmol/L (21-32) Anion Gap 13 (6-14) Blood Urea Nitrogen 15mg/dL (8-26) Creatinine 1.2mg/dL (0.7-1.3) Estimated GFR (Cockcroft-Gault) 64.9 Glucose Level 132mg/dL (70-99) Calcium Level 9.1mg/dL (8.5-10.1) O2 Saturation 98% (92-99) Arterial Blood pH 7.52 (7.35-7.45) Arterial Blood pCO2 at Patient Temp 26mmHg (35-46) Arterial Blood pO2 at Patient Temp 130mmHg (75-108) Arterial Blood HCO3 21mmol/L (21-28) Arterial Blood Base Excess -1mmol/L (-3-3) FiO2 50 Glucose (Fingerstick) 125mg/dL (70-99) 136mg/dL (70-99) Laboratory Tests Test 06/18/16 19:00 06/19/16 00:31 06/19/16 06:25 06/19/16 08:00 Sodium Level 139mmol/L (136-145) 140mmol/L (136-145) Potassium Level 3.3mmol/L (3.5-5.1) 3.9mmol/L (3.5-5.1) Chloride Level 104mmol/L (98-107) 106mmol/L (98-107) Carbon Dioxide Level 25mmol/L (21-32) 21mmol/L (21-32) Anion Gap 10 (6-14) 13 (6-14) Blood Urea Nitrogen 13mg/dL (8-26) 15mg/dL (8-26) Creatinine 1.1mg/dL (0.7-1.3) 1.2mg/dL (0.7-1.3) Estimated GFR (Cockcroft-Gault) 71.8 64.9 Glucose Level 169mg/dL (70-99) 132mg/dL (70-99) Calcium Level 8.9mg/dL (8.5-10.1) 9.1mg/dL (8.5-10.1) Phosphorus Level 1.5mg/dL (2.6-4.7) Magnesium Level 2.2mg/dL (1.8-2.4) Creatine Kinase 225U/L (39-308) Creatine Kinase MB (Mass) 3.3ng/mL (0.0-3.6) Creatine Kinase MB Relative Index 1.5% (0-4) Albumin 2.0g/dL (3.4-5.0) Glucose (Fingerstick) 150mg/dL (70-99) White Blood Count 10.5x10^3/uL (4.0-11.0) Red Blood Count 3.53x10^6/uL (4.30-5.70) Hemoglobin 8.5g/dL (13.0-17.5) Hematocrit 26.6% (39.0-53.0) Mean Corpuscular Volume 75fL (79-100) Mean Corpuscular Hemoglobin 24pg (25-35) Mean Corpuscular Hemoglobin Concent 32g/dL (31-37) Red Cell Distribution Width 15.8% (11.5-14.5) Platelet Count 328x10^3/uL (140-400) Neutrophils (%) (Auto) 86% (31-73) Lymphocytes (%) (Auto) 10% (24-48) Monocytes (%) (Auto) 3% (0-9) Eosinophils (%) (Auto) 0% (0-3) Basophils (%) (Auto) 1% (0-3) Neutrophils # (Auto) 9.0x10^3uL (1.8-7.7) Lymphocytes # (Auto) 1.0x10^3/uL (1.0-4.8) Monocytes # (Auto) 0.4x10^3/uL (0.0-1.1) Eosinophils # (Auto) 0.0x10^3/uL (0.0-0.7) Basophils # (Auto) 0.1x10^3/uL (0.0-0.2) Segmented Neutrophils % 77% (35-66) Band Neutrophils % 9% (0-9) Lymphocytes % 11% (24-48) Monocytes % 3% (0-10) Platelet Estimate Adequate (ADEQUATE) Hypochromasia Present Anisocytosis Present O2 Saturation 98% (92-99) Arterial Blood pH 7.52 (7.35-7.45) Arterial Blood pCO2 at Patient Temp 26mmHg (35-46) Arterial Blood pO2 at Patient Temp 130mmHg (75-108) Arterial Blood HCO3 21mmol/L (21-28) Arterial Blood Base Excess -1mmol/L (-3-3) FiO2 50 Test 3/23/17 12:14 06/19/16 18:29 Glucose (Fingerstick) 125mg/dL (70-99) 136mg/dL (70-99) Medications Current Medications Sodium Chloride 1,000 ml @ 1,000 mls/hr 1X ONCE IV Last administered on 14:51; Start 06/18/16 at 14:30; Stop 06/18/16 at 15:29; Status DC Sodium Chloride (Iv Sodium Chloride 0.9% 1000ml Bag) 1,000 ml @ 1,000 mls/hr Q1H IV Last administered on 06/18/16 16:00; Start 06/18/16 at 14:29; Stop at 15:28; Status DC Dextrose 25 gm 1X ONCE IV Last administered on 06/18/16 15:26; Start at 14:30; Stop 06/18/16 at 14:39; Status DC Insulin Human Regular (Novolin R Vial) 10 unit 1X ONCE IV Last administered on 06/18/16 15:29; Start 06/18/16 at 14:30; Stop 06/18/16 at 14:39; Status DC Calcium Gluconate 1000 mg 1,000 mg 1X ONCE IVP Last administered on 06/18/16 15:30; Start 06/18/16 at 14:30; Stop 06/18/16 at 14:39; Status DC Sodium Bicarbonate 50 meq/Dextrose/ Sodium Chloride 1,050 ml @ 125 mls/hr 1X ONCE IV Last administered on 06/18/16 15:25; Start 06/18/16 at 14:45; Stop at 23:08; Status DC Sodium Bicarbonate/ Dextrose/Sodium Chloride (Iv D5% - 1/2 NS) 1,150 ml @ 125 mls/hr 1X ONCE IV Last administered on 06/18/16 15:15; Start 06/18/16 at 15: 15; Stop 06/19/16 at 00:26; Status DC Sodium Bicarbonate 50 meq 1X ONCE IV ; Start 06/18/16 at 15:15; Stop 06/18/16 at 15:22; Status DC Dexamethasone Sodium Phosphate (Decadron) 10 mg 1X ONCE IV Last administered on 06/18/16 15:51; Start 06/18/16 at 15:15; Stop 06/18/16 at 15:22; Status DC Dexamethasone Sodium Phosphate 4 mg 4 mg Q6HRS IV Last administered on 18:28; Start 06/18/16 at 18:00 Levetiracetam/ Sodium Chloride (Keppra/Iv Sodium Chloride 0.9% 100ml) 105 ml @ 400 mls/hr Q12HR IV Last administered on 06/19/16 09:35; Start 06/18/16 at 16: 00 Lorazepam (Ativan) 1 mg 1X ONCE IV Last administered on 06/18/16 14:07; Start 06/18/16 at 15:45; Stop 06/18/16 at 15:46; Status DC Fentanyl Citrate 50 mcg 50 mcg 1X ONCE IV Last administered on 06/18/16 15:40 ; Start 06/18/16 at 15:45; Stop 06/18/16 at 15:46; Status DC Midazolam HCl (Versed 100mg/ 100ml Premix) 100 ml @ 0 mls/hr 1X ONCE IV Last administered on 06/18/16 15:59; Start 06/18/16 at 15:45; Stop 06/18/16 at 15:46 ; Status DC Ondansetron HCl (Zofran) 4 mg PRN Q8HRS PRN IV NAUSEA/VOMITING; Start 06/18/16 at 15:45; Stop 06/19/16 at 08:53; Status DC Fentanyl Citrate 50 mcg 50 mcg PRN Q2HR PRN IV PAIN; Start 06/18/16 at 15:45; Stop 06/19/16 at 15:44; Status DC Sodium Chloride (Iv Sodium Chloride 0.9% 1000ml Bag) 1,000 ml @ 150 mls/hr Q6H40M IV Last administered on 06/19/16 12:19; Start 06/18/16 at 15:40; Stop 06/19/16 at 15:39; Status DC Ondansetron HCl (Zofran) 4 mg PRN Q6HRS PRN IV NAUSEA/VOMITING; Start 06/18/16 at 18:30 Pantoprazole Sodium (Protonix Vial) 40 mg DAILYAC IVP Last administered on 06/19 09:35; Start 06/19/16 at 07:30 Heparin Sodium (Porcine) 5,000 unit Q8HRS SQ Last administered on 06/19/16 12: 23; Start 06/18/16 at 22:00 Insulin Aspart (Novolog) 0-9 UNITS QIDACHS SQ ; Start 06/18/16 at 21:00; Stop at 00:18; Status DC Dextrose 12.5 gm 12.5 gm PRN Q15MIN PRN IV SEE COMMENTS; Start 06/18/16 at 18: 30 Sodium Bicarbonate 150 meq/Sterile Water 1,150 ml @ 100 mls/hr [id number] PRN IV . ; Start 06/18/16 at 18:30; Stop 06/18/16 at 20:13; Status DC Potassium Chloride 50 ml @ 50 mls/hr 1X ONCE IV ; Start 06/18/16 at 19:45; Stop 06/18/16 at 20:44; Status UNV Potassium Phosphate 10 mmol/ Sodium Chloride 103.3333 ml @ 51.667 m... Q2H IV Last administered on 06/18/16 22:00; Start 06/18/16 at 20:00; Stop 06/18/16 at 23:59; Status DC Potassium Chloride (KCl Premix 10meq) 100 ml @ 100 mls/hr Q1H IV ; Start at 20:00; Stop 06/18/16 at 20:13; Status DC Gadobutrol (Gadavist) 7.5 mmol 1X ONCE IV Last administered on 06/18/16 23:10 ; Start 06/18/16 at 23:15; Stop 06/18/16 at 23:16; Status DC Insulin Aspart 0-9 UNITS Q6HRS SQ ; Start 06/19/16 at 06:00 Midazolam HCl 100 ml @ As Directed STK-MED ONCE IV ; Start 06/19/16 at 02:22; Stop 06/19/16 at 02:23; Status DC Midazolam HCl 100 ml @ 0 mls/hr CONT PRN IV SEE I/O RECORD Last administered on 06/19/16 09:35; Start 06/19/16 at 02:30 Cefepime HCl 2 gm/ Sodium Chloride 100 ml @ 200 mls/hr Q8HRS IV Last administered on 06/19/16 12:20; Start 06/19/16 at 10:00; Stop 06/19/16 at 12:25 ; Status DC Propofol (Diprivan) 100 ml @ As Directed STK-MED ONCE IV ; Start 06/19/16 at 16 :22; Stop 06/19/16 at 16:23; Status DC Epinephrine HCl 3 mg STK-MED ONCE .ROUTE ; Start 06/19/16 at 16:26; Stop at 16:27; Status DC Sodium Bicarbonate 50 meq STK-MED ONCE .ROUTE ; Start 06/19/16 at 16:26; Stop at 16:27; Status DC Vitals/I & O Vital Sign - Last 24 Hours 06/18/16 06/18/16 06/18/16 06/18/16 19:00 19:30 20:00 20:00 Temp 97.5 97.5 Pulse 88 82 80 Resp B/P 91/64 100/67 108/73 Pulse Ox 100 100 100 O2 Delivery Ventilator Ventilator Ventilator Mechanical Ventilator 06/18/16 06/18/16 06/18/16 06/18/16 20:30 20:50 21:00 22:00 Pulse 76 72 72 Resp B/P 98/68 93/66 94/68 Pulse Ox 100 98 100 100 O2 Delivery Ventilator Ventilator Ventilator Ventilator 06/18/16 06/18/16 06/19/16 06/19/16 23:00 23:30 00:00 00:00 Temp 97.4 97.4 Pulse 77 74 70 Resp B/P 109/76 116/81 116/78 Pulse Ox 100 100 100 O2 Delivery Ventilator Ventilator Mechanical Ventilator Ventilator 06/19/16 06/19/16 06/19/16 06/19/16 00:15 00:26 00:30 01:00 Pulse 66 66 63 Resp B/P 99/69 105/70 106/76 Pulse Ox 100 100 100 100 O2 Delivery Ventilator Ventilator Ventilator Ventilator 06/19/16 06/19/16 06/19/16 06/19/16 02:00 02:07 03:00 04:00 Pulse 65 61 Resp B/P 104/74 94/66 Pulse Ox 100 100 100 O2 Delivery Ventilator Ventilator Ventilator Mechanical Ventilator 06/19/16 06/19/16 06/19/16 06/19/16 04:00 04:21 05:00 05:57 Temp 97.5 97.5 Pulse 63 64 Resp 26 26 B/P 94/65 97/66 Pulse Ox 100 100 100 100 O2 Delivery Ventilator Ventilator Ventilator Ventilator 06/19/16 06/19/16 06/19/16 06/19/16 06:00 07:00 08:00 08:00 Temp 97.6 97.6 Pulse 64 73 75 Resp 26 26 26 B/P 93/63 102/70 103/70 Pulse Ox 100 99 100 O2 Delivery Ventilator Ventilator Ventilator Mechanical Ventilator 06/19/16 06/19/16 06/19/16 06/19/16 08:18 09:00 10:00 11:00 Pulse 82 73 74 Resp 22 22 22 B/P 102/78 103/68 102/68 Pulse Ox 100 98 97 97 O2 Delivery Ventilator Ventilator Ventilator Ventilator 06/19/16 06/19/16 06/19/16 06/19/16 12:00 12:00 12:05 13:00 Temp 98.1 98.1 Pulse 80 76 Resp 19 18 B/P 97/62 94/62 Pulse Ox 97 97 98 O2 Delivery Mechanical Ventilator Ventilator Ventilator Ventilator 06/19/16 06/19/16 06/19/16 06/19/16 14:00 15:00 16:00 16:00 Temp 98.2 98.2 Pulse 78 75 84 Resp 19 19 20 B/P 96/63 94/60 97/62 Pulse Ox 97 97 98 O2 Delivery Ventilator Ventilator Mechanical Ventilator Ventilator 06/19/16 06/19/16 17:00 18:00 Pulse 96 80 Resp 22 18 B/P 94/60 96/62 Pulse Ox 96 97 O2 Delivery Ventilator Ventilator Intake and Output 06/18/16 06/18/16 06/19/16 15:00 23:00 07:00 Intake Total 2205 ml 2389 ml Output Total 1070 ml 415 ml Balance 1135 ml 1974 ml CELIA FLETCHER MD Jun 19, 2016 18:41
[2016-06-20] VITALS (12 sets, daily range): BP systolic 94–106; BP diastolic 60–69
[2016-06-20] MEDS: DEXAMETHASONE SOD PHOS 4 MG/ML VIAL IV SCH ×2 (00:41→09:16)
[2016-06-20] MEDS: MIDAZOLAM PREMIX 100 ML IV PRN ×2 (02:40→09:34)
[2016-06-20] MEDS: INSULIN ASPART 300 UNITS/3 ML INSULN.PEN SQ SCH ×2 (06:00)
[2016-06-20 08:05] LABS: HCO3 ABG 20 mmol/L (21-28); PCO2 ABG 30 mmHg (35-46); PH ABG 7.44 (7.35-7.45); PO2 ABG 121 mmHg (75-108); SAT O2 ABG 98 % (92-99)
[2016-06-20 08:21] LABS: FIO2 ABG 40
--- NOTE | 2016-06-20 08:40 | PDOC ---
PULMONARY PROGRESS NOTES Subjective on vent, agitated at times. Vitals Vital Signs Date Time Temp Pulse Resp B/P Pulse Ox O2 Delivery O2 Flow Rate FiO2 06/20/16 08:00 80 22 100/65 98 Ventilator 06/20/16 04:00 98.8 98.8 Comments ros as mentioned as above other sys otherwise neg HEENT: Other (nc at perrl, throat, orally intubated nose clear, neck no lap, no thyromegaly) Lungs: Crackles Cardiovascular: S1, S2 Abdomen: Soft, Non-tender, Other (no mass) Extremities: Other (edema) Skin: Warm Labs Laboratory Tests Test 06/18/16 14:20 06/18/16 14:25 06/18/16 14:26 06/18/16 14:45 White Blood Count 18.3x10^3/uL (4.0-11.0) Red Blood Count 5.10x10^6/uL (4.30-5.70) Hemoglobin 12.2g/dL (13.0-17.5) Hematocrit 41.9% (39.0-53.0) Mean Corpuscular Volume 82fL (79-100) Mean Corpuscular Hemoglobin 24pg (25-35) Mean Corpuscular Hemoglobin Concent 29g/dL (31-37) Red Cell Distribution Width 16.8% (11.5-14.5) Platelet Count 541x10^3/uL (140-400) Neutrophils (%) (Auto) 75% (31-73) Lymphocytes (%) (Auto) 21% (24-48) Monocytes (%) (Auto) 3% (0-9) Eosinophils (%) (Auto) 0% (0-3) Basophils (%) (Auto) 1% (0-3) Neutrophils # (Auto) 13.6x10^3uL (1.8-7.7) Lymphocytes # (Auto) 3.8x10^3/uL (1.0-4.8) Monocytes # (Auto) 0.6x10^3/uL (0.0-1.1) Eosinophils # (Auto) 0.1x10^3/uL (0.0-0.7) Basophils # (Auto) 0.2x10^3/uL (0.0-0.2) Segmented Neutrophils % 62% (35-66) Band Neutrophils % 6% (0-9) Lymphocytes % 27% (24-48) Monocytes % 3% (0-10) Eosinophils % 1% (0-5) Basophils % 1% (0-3) Platelet Estimate Increased (ADEQUATE) Hypochromasia Slight Poikilocytosis Slight Anisocytosis Slight Prothrombin Time 14.7SEC (11.7-14.0) Prothromb Time International Ratio 1.2 (0.8-1.1) Sodium Level 146mmol/L (136-145) Potassium Level 7.6mmol/L (3.5-5.1) Chloride Level 106mmol/L (98-107) Carbon Dioxide Level 19mmol/L (21-32) Anion Gap 21 (6-14) 23mmol/L (6-14) Blood Urea Nitrogen 14mg/dL (8-26) Creatinine 1.8mg/dL (0.7-1.3) Estimated GFR (Cockcroft-Gault) 33.8 Glucose Level 259mg/dL (70-99) 245mg/dL (70-99) Calcium Level 12.6mg/dL (8.5-10.1) Creatine Kinase 40U/L (39-308) Troponin I Quantitative < 0.017ng/mL (0.000-0.055) Bedside Troponin I 0.01ng/ml (<0.08) Bedside Hemoglobin 14.3g/dL (14-18) Bedside Hematocrit 42% (37-52) Bedside Sodium 148mmol/L (135-145) Bedside Potassium 7.0mmol/L (3.5-5.0) Bedside Chloride 113mmol/L (98-110) Bedside Total CO2 20mmol/L (23-32) Bedside Blood Urea Nitrogen 13mg/dL (8-26) Bedside Creatinine 1.2mg/dL (0.5-1.4) Bedside Ionized Calcium (Yuly) 1.52mmol/L (1.13-1.32) Urine Opiates Screen Neg (NEG) Urine Methadone Screen Neg (NEG) Urine Barbiturates Neg (NEG) Urine Phencyclidine Screen Neg (NEG) Urine Amphetamine/Methamphetamine Neg (NEG) Urine Benzodiazepines Screen Neg (NEG) Urine Cocaine Screen Neg (NEG) Urine Cannabinoids Screen Neg (NEG) Urine Ethyl Alcohol Neg (NEG) Test 06/18/16 15:20 06/18/16 18:15 06/18/16 19:00 06/19/16 00:31 O2 Saturation 90% (92-99) Arterial Blood pH 7.27 (7.35-7.45) Arterial Blood pCO2 at Patient Temp 31mmHg (35-46) Arterial Blood pO2 at Patient Temp 70mmHg (65-108) Arterial Blood HCO3 14mmol/L (21-28) Arterial Blood Base Excess -12mmol/L (-3-3) FiO2 40.0 Nasal Screen MRSA (PCR) Negative (Negative) Sodium Level 139mmol/L (136-145) Potassium Level 3.3mmol/L (3.5-5.1) Chloride Level 104mmol/L (98-107) Carbon Dioxide Level 25mmol/L (21-32) Anion Gap 10 (6-14) Blood Urea Nitrogen 13mg/dL (8-26) Creatinine 1.1mg/dL (0.7-1.3) Estimated GFR (Cockcroft-Gault) 71.8 Glucose Level 169mg/dL (70-99) Calcium Level 8.9mg/dL (8.5-10.1) Phosphorus Level 1.5mg/dL (2.6-4.7) Magnesium Level 2.2mg/dL (1.8-2.4) Creatine Kinase 225U/L (39-308) Creatine Kinase MB (Mass) 3.3ng/mL (0.0-3.6) Creatine Kinase MB Relative Index 1.5% (0-4) Albumin 2.0g/dL (3.4-5.0) Glucose (Fingerstick) 150mg/dL (70-99) Test 06/19/16 06:25 06/19/16 08:00 06/19/16 12:14 06/19/16 18:29 White Blood Count 10.5x10^3/uL (4.0-11.0) Red Blood Count 3.53x10^6/uL (4.30-5.70) Hemoglobin 8.5g/dL (13.0-17.5) Hematocrit 26.6% (39.0-53.0) Mean Corpuscular Volume 75fL (79-100) Mean Corpuscular Hemoglobin 24pg (25-35) Mean Corpuscular Hemoglobin Concent 32g/dL (31-37) Red Cell Distribution Width 15.8% (11.5-14.5) Platelet Count 328x10^3/uL (140-400) Neutrophils (%) (Auto) 86% (31-73) Lymphocytes (%) (Auto) 10% (24-48) Monocytes (%) (Auto) 3% (0-9) Eosinophils (%) (Auto) 0% (0-3) Basophils (%) (Auto) 1% (0-3) Neutrophils # (Auto) 9.0x10^3uL (1.8-7.7) Lymphocytes # (Auto) 1.0x10^3/uL (1.0-4.8) Monocytes # (Auto) 0.4x10^3/uL (0.0-1.1) Eosinophils # (Auto) 0.0x10^3/uL (0.0-0.7) Basophils # (Auto) 0.1x10^3/uL (0.0-0.2) Segmented Neutrophils % 77% (35-66) Band Neutrophils % 9% (0-9) Lymphocytes % 11% (24-48) Monocytes % 3% (0-10) Platelet Estimate Adequate (ADEQUATE) Hypochromasia Present Anisocytosis Present Sodium Level 140mmol/L (136-145) Potassium Level 3.9mmol/L (3.5-5.1) Chloride Level 106mmol/L (98-107) Carbon Dioxide Level 21mmol/L (21-32) Anion Gap 13 (6-14) Blood Urea Nitrogen 15mg/dL (8-26) Creatinine 1.2mg/dL (0.7-1.3) Estimated GFR (Cockcroft-Gault) 64.9 Glucose Level 132mg/dL (70-99) Calcium Level 9.1mg/dL (8.5-10.1) O2 Saturation 98% (92-99) Arterial Blood pH 7.52 (7.35-7.45) Arterial Blood pCO2 at Patient Temp 26mmHg (35-46) Arterial Blood pO2 at Patient Temp 130mmHg (75-108) Arterial Blood HCO3 21mmol/L (21-28) Arterial Blood Base Excess -1mmol/L (-3-3) FiO2 50 Glucose (Fingerstick) 125mg/dL (70-99) 136mg/dL (70-99) Test 06/20/16 00:43 06/20/16 08:00 Glucose (Fingerstick) 135mg/dL (70-99) O2 Saturation 98% (92-99) Arterial Blood pH 7.44 (7.35-7.45) Arterial Blood pCO2 at Patient Temp 30mmHg (35-46) Arterial Blood pO2 at Patient Temp 121mmHg (75-108) Arterial Blood HCO3 20mmol/L (21-28) Arterial Blood Base Excess -4mmol/L (-3-3) FiO2 40 Laboratory Tests Test 06/19/16 12:14 06/19/16 18:29 06/20/16 00:43 06/20/16 08:00 Glucose (Fingerstick) 125mg/dL (70-99) 136mg/dL (70-99) 135mg/dL (70-99) O2 Saturation 98% (92-99) Arterial Blood pH 7.44 (7.35-7.45) Arterial Blood pCO2 at Patient Temp 30mmHg (35-46) Arterial Blood pO2 at Patient Temp 121mmHg (75-108) Arterial Blood HCO3 20mmol/L (21-28) Arterial Blood Base Excess -4mmol/L (-3-3) FiO2 40 Comments cxr reviewed, 1. The ET tube and NG tube are in satisfactory positions. 2. Bilateral pulmonary nodules. 3. Mild left basilar atelectasis/infiltrate has developed. Impression . IMPRESSION: 1. Acute respiratory failure secondary to multifactorial etiologies including cardiac arrest, brain metastasis contributing to seizures. Underlying chronic obstructive pulmonary disease and highly suspected primary lung cancer with brain metastases. 2. Status post code blue with PA for 7 minutes. Cannot exclude anoxic encephalopathy in addition to metabolic encephalopathy from brain metastases. 3. Suspected Underlying chronic obstructive pulmonary disease. 4. Abnormal MRI of the brain with multiple lesions in the brain suspicious for metastasis. Plan . RECOMMENDATIONS: 1. Continue vent support, setting reviewed 2. Continue with present antibiotics. 3. Dexamethasone. 4. Neurology followup. 5. Oncology followup. 6. discussed w family (support given)and rn, rt.. plan, withdraw support. keep comfortable. TJ LOPEZ MD Jun 20, 2016 08:40
--- NOTE | 2016-06-20 08:59 | PDOC ---
PROGRESS NOTES Subjective Subjective c/c - f/u of Lung cancer with brain mets Objective Objective Vital Signs Date Time Temp Pulse Resp B/P Pulse Ox O2 Delivery O2 Flow Rate FiO2 06/20/16 08:00 80 22 100/65 98 Ventilator 06/20/16 04:00 98.8 98.8 06/18/16 18:20 50.0 Intake and Output 06/20/16 07:00 Intake Total 1914 ml Output Total 1150 ml Balance 764 ml Intake Oral 0 ml IV Total 479 ml Tube Feeding 1035 ml Other 400 ml Output Urine Total 1150 ml Gastric Drainage Total 0 ml Physical Exam Heart: Normal S1, Normal S2 Lungs: Clear to auscultation Assessment Assessment Problems Medical Problems: (1) Acidosis Status: Acute (2) Hyperkalemia Status: Acute (3) Mass, brain Status: Acute (4) Respiratory failure Status: Acute IMPRESSION AND PLAN: 1. Lung cancer with brain mets: Clinically suggestive of primary lung malignancy with brain metastases. I discussed in detail with the patient's family regarding the radiological findings and the clinical impression of stage IV malignancy. I discussed with Dr Weller. Appreciate pulmonary consultation. Family has decided to pursue with comfort care. 2. Hypercalcemia: With the evidence of lung nodules and brain metastases, this is suspicious for hypercalcemia related to malignancy. Calcium has now improved Nephrology consultation appreciated. 3. Brain metastases: He has been started on Decadron and Keppra. Appreciate Neurology consultation. I d/w Radiation Oncology, Dr. Weller. Comment Review of Relevant I have reviewed the following items augustin (where applicable) has been applied. Labs Laboratory Tests Test 06/18/16 14:20 06/18/16 14:25 06/18/16 14:26 06/18/16 14:45 White Blood Count 18.3x10^3/uL (4.0-11.0) Red Blood Count 5.10x10^6/uL (4.30-5.70) Hemoglobin 12.2g/dL (13.0-17.5) Hematocrit 41.9% (39.0-53.0) Mean Corpuscular Volume 82fL (79-100) Mean Corpuscular Hemoglobin 24pg (25-35) Mean Corpuscular Hemoglobin Concent 29g/dL (31-37) Red Cell Distribution Width 16.8% (11.5-14.5) Platelet Count 541x10^3/uL (140-400) Neutrophils (%) (Auto) 75% (31-73) Lymphocytes (%) (Auto) 21% (24-48) Monocytes (%) (Auto) 3% (0-9) Eosinophils (%) (Auto) 0% (0-3) Basophils (%) (Auto) 1% (0-3) Neutrophils # (Auto) 13.6x10^3uL (1.8-7.7) Lymphocytes # (Auto) 3.8x10^3/uL (1.0-4.8) Monocytes # (Auto) 0.6x10^3/uL (0.0-1.1) Eosinophils # (Auto) 0.1x10^3/uL (0.0-0.7) Basophils # (Auto) 0.2x10^3/uL (0.0-0.2) Segmented Neutrophils % 62% (35-66) Band Neutrophils % 6% (0-9) Lymphocytes % 27% (24-48) Monocytes % 3% (0-10) Eosinophils % 1% (0-5) Basophils % 1% (0-3) Platelet Estimate Increased (ADEQUATE) Hypochromasia Slight Poikilocytosis Slight Anisocytosis Slight Prothrombin Time 14.7SEC (11.7-14.0) Prothromb Time International Ratio 1.2 (0.8-1.1) Sodium Level 146mmol/L (136-145) Potassium Level 7.6mmol/L (3.5-5.1) Chloride Level 106mmol/L (98-107) Carbon Dioxide Level 19mmol/L (21-32) Anion Gap 21 (6-14) 23mmol/L (6-14) Blood Urea Nitrogen 14mg/dL (8-26) Creatinine 1.8mg/dL (0.7-1.3) Estimated GFR (Cockcroft-Gault) 33.8 Glucose Level 259mg/dL (70-99) 245mg/dL (70-99) Calcium Level 12.6mg/dL (8.5-10.1) Creatine Kinase 40U/L (39-308) Troponin I Quantitative < 0.017ng/mL (0.000-0.055) Bedside Troponin I 0.01ng/ml (<0.08) Bedside Hemoglobin 14.3g/dL (14-18) Bedside Hematocrit 42% (37-52) Bedside Sodium 148mmol/L (135-145) Bedside Potassium 7.0mmol/L (3.5-5.0) Bedside Chloride 113mmol/L (98-110) Bedside Total CO2 20mmol/L (23-32) Bedside Blood Urea Nitrogen 13mg/dL (8-26) Bedside Creatinine 1.2mg/dL (0.5-1.4) Bedside Ionized Calcium (Yuly) 1.52mmol/L (1.13-1.32) Urine Opiates Screen Neg (NEG) Urine Methadone Screen Neg (NEG) Urine Barbiturates Neg (NEG) Urine Phencyclidine Screen Neg (NEG) Urine Amphetamine/Methamphetamine Neg (NEG) Urine Benzodiazepines Screen Neg (NEG) Urine Cocaine Screen Neg (NEG) Urine Cannabinoids Screen Neg (NEG) Urine Ethyl Alcohol Neg (NEG) Test 06/18/16 15:20 06/18/16 18:15 06/18/16 19:00 06/19/16 00:31 O2 Saturation 90% (92-99) Arterial Blood pH 7.27 (7.35-7.45) Arterial Blood pCO2 at Patient Temp 31mmHg (35-46) Arterial Blood pO2 at Patient Temp 70mmHg (65-108) Arterial Blood HCO3 14mmol/L (21-28) Arterial Blood Base Excess -12mmol/L (-3-3) FiO2 40.0 Nasal Screen MRSA (PCR) Negative (Negative) Sodium Level 139mmol/L (136-145) Potassium Level 3.3mmol/L (3.5-5.1) Chloride Level 104mmol/L (98-107) Carbon Dioxide Level 25mmol/L (21-32) Anion Gap 10 (6-14) Blood Urea Nitrogen 13mg/dL (8-26) Creatinine 1.1mg/dL (0.7-1.3) Estimated GFR (Cockcroft-Gault) 71.8 Glucose Level 169mg/dL (70-99) Calcium Level 8.9mg/dL (8.5-10.1) Phosphorus Level 1.5mg/dL (2.6-4.7) Magnesium Level 2.2mg/dL (1.8-2.4) Creatine Kinase 225U/L (39-308) Creatine Kinase MB (Mass) 3.3ng/mL (0.0-3.6) Creatine Kinase MB Relative Index 1.5% (0-4) Albumin 2.0g/dL (3.4-5.0) Glucose (Fingerstick) 150mg/dL (70-99) Test 06/19/16 06:25 06/19/16 08:00 06/19/16 12:14 06/19/16 18:29 White Blood Count 10.5x10^3/uL (4.0-11.0) Red Blood Count 3.53x10^6/uL (4.30-5.70) Hemoglobin 8.5g/dL (13.0-17.5) Hematocrit 26.6% (39.0-53.0) Mean Corpuscular Volume 75fL (79-100) Mean Corpuscular Hemoglobin 24pg (25-35) Mean Corpuscular Hemoglobin Concent 32g/dL (31-37) Red Cell Distribution Width 15.8% (11.5-14.5) Platelet Count 328x10^3/uL (140-400) Neutrophils (%) (Auto) 86% (31-73) Lymphocytes (%) (Auto) 10% (24-48) Monocytes (%) (Auto) 3% (0-9) Eosinophils (%) (Auto) 0% (0-3) Basophils (%) (Auto) 1% (0-3) Neutrophils # (Auto) 9.0x10^3uL (1.8-7.7) Lymphocytes # (Auto) 1.0x10^3/uL (1.0-4.8) Monocytes # (Auto) 0.4x10^3/uL (0.0-1.1) Eosinophils # (Auto) 0.0x10^3/uL (0.0-0.7) Basophils # (Auto) 0.1x10^3/uL (0.0-0.2) Segmented Neutrophils % 77% (35-66) Band Neutrophils % 9% (0-9) Lymphocytes % 11% (24-48) Monocytes % 3% (0-10) Platelet Estimate Adequate (ADEQUATE) Hypochromasia Present Anisocytosis Present Sodium Level 140mmol/L (136-145) Potassium Level 3.9mmol/L (3.5-5.1) Chloride Level 106mmol/L (98-107) Carbon Dioxide Level 21mmol/L (21-32) Anion Gap 13 (6-14) Blood Urea Nitrogen 15mg/dL (8-26) Creatinine 1.2mg/dL (0.7-1.3) Estimated GFR (Cockcroft-Gault) 64.9 Glucose Level 132mg/dL (70-99) Calcium Level 9.1mg/dL (8.5-10.1) O2 Saturation 98% (92-99) Arterial Blood pH 7.52 (7.35-7.45) Arterial Blood pCO2 at Patient Temp 26mmHg (35-46) Arterial Blood pO2 at Patient Temp 130mmHg (75-108) Arterial Blood HCO3 21mmol/L (21-28) Arterial Blood Base Excess -1mmol/L (-3-3) FiO2 50 Glucose (Fingerstick) 125mg/dL (70-99) 136mg/dL (70-99) Test 06/20/16 00:43 06/20/16 08:00 Glucose (Fingerstick) 135mg/dL (70-99) O2 Saturation 98% (92-99) Arterial Blood pH 7.44 (7.35-7.45) Arterial Blood pCO2 at Patient Temp 30mmHg (35-46) Arterial Blood pO2 at Patient Temp 121mmHg (75-108) Arterial Blood HCO3 20mmol/L (21-28) Arterial Blood Base Excess -4mmol/L (-3-3) FiO2 40 Laboratory Tests Test 06/19/16 12:14 06/19/16 18:29 06/20/16 00:43 06/20/16 08:00 Glucose (Fingerstick) 125mg/dL (70-99) 136mg/dL (70-99) 135mg/dL (70-99) O2 Saturation 98% (92-99) Arterial Blood pH 7.44 (7.35-7.45) Arterial Blood pCO2 at Patient Temp 30mmHg (35-46) Arterial Blood pO2 at Patient Temp 121mmHg (75-108) Arterial Blood HCO3 20mmol/L (21-28) Arterial Blood Base Excess -4mmol/L (-3-3) FiO2 40 Medications Current Medications Sodium Chloride 1,000 ml @ 1,000 mls/hr 1X ONCE IV Last administered on 14:51; Start 06/18/16 at 14:30; Stop 06/18/16 at 15:29; Status DC Sodium Chloride (Iv Sodium Chloride 0.9% 1000ml Bag) 1,000 ml @ 1,000 mls/hr Q1H IV Last administered on 06/18/16 16:00; Start 06/18/16 at 14:29; Stop at 15:28; Status DC Dextrose 25 gm 1X ONCE IV Last administered on 06/18/16 15:26; Start at 14:30; Stop 06/18/16 at 14:39; Status DC Insulin Human Regular (Novolin R Vial) 10 unit 1X ONCE IV Last administered on 06/18/16 15:29; Start 06/18/16 at 14:30; Stop 06/18/16 at 14:39; Status DC Calcium Gluconate 1000 mg 1,000 mg 1X ONCE IVP Last administered on 06/18/16 15:30; Start 06/18/16 at 14:30; Stop 06/18/16 at 14:39; Status DC Sodium Bicarbonate 50 meq/Dextrose/ Sodium Chloride 1,050 ml @ 125 mls/hr 1X ONCE IV Last administered on 06/18/16 15:25; Start 06/18/16 at 14:45; Stop at 23:08; Status DC Sodium Bicarbonate/ Dextrose/Sodium Chloride (Iv D5% - 1/2 NS) 1,150 ml @ 125 mls/hr 1X ONCE IV Last administered on 06/18/16 15:15; Start 06/18/16 at 15: 15; Stop 06/19/16 at 00:26; Status DC Sodium Bicarbonate 50 meq 1X ONCE IV ; Start 06/18/16 at 15:15; Stop 06/18/16 at 15:22; Status DC Dexamethasone Sodium Phosphate (Decadron) 10 mg 1X ONCE IV Last administered on 06/18/16 15:51; Start 06/18/16 at 15:15; Stop 06/18/16 at 15:22; Status DC Dexamethasone Sodium Phosphate 4 mg 4 mg Q6HRS IV Last administered on 00:41; Start 06/18/16 at 18:00 Levetiracetam/ Sodium Chloride (Keppra/Iv Sodium Chloride 0.9% 100ml) 105 ml @ 400 mls/hr Q12HR IV Last administered on 06/19/16 21:56; Start 06/18/16 at 16: 00 Lorazepam (Ativan) 1 mg 1X ONCE IV Last administered on 06/18/16 14:07; Start 06/18/16 at 15:45; Stop 06/18/16 at 15:46; Status DC Fentanyl Citrate 50 mcg 50 mcg 1X ONCE IV Last administered on 06/18/16 15:40 ; Start 06/18/16 at 15:45; Stop 06/18/16 at 15:46; Status DC Midazolam HCl (Versed 100mg/ 100ml Premix) 100 ml @ 0 mls/hr 1X ONCE IV Last administered on 06/18/16 15:59; Start 06/18/16 at 15:45; Stop 06/18/16 at 15:46 ; Status DC Ondansetron HCl (Zofran) 4 mg PRN Q8HRS PRN IV NAUSEA/VOMITING; Start 06/18/16 at 15:45; Stop 06/19/16 at 08:53; Status DC Fentanyl Citrate 50 mcg 50 mcg PRN Q2HR PRN IV PAIN; Start 06/18/16 at 15:45; Stop 06/19/16 at 15:44; Status DC Sodium Chloride (Iv Sodium Chloride 0.9% 1000ml Bag) 1,000 ml @ 150 mls/hr Q6H40M IV Last administered on 06/19/16 12:19; Start 06/18/16 at 15:40; Stop 06/19/16 at 15:39; Status DC Ondansetron HCl (Zofran) 4 mg PRN Q6HRS PRN IV NAUSEA/VOMITING; Start 06/18/16 at 18:30 Pantoprazole Sodium (Protonix Vial) 40 mg DAILYAC IVP Last administered on 06/19 09:35; Start 06/19/16 at 07:30 Heparin Sodium (Porcine) 5,000 unit Q8HRS SQ Last administered on 06/19/16 21: 56; Start 06/18/16 at 22:00 Insulin Aspart (Novolog) 0-9 UNITS QIDACHS SQ ; Start 06/18/16 at 21:00; Stop at 00:18; Status DC Dextrose 12.5 gm 12.5 gm PRN Q15MIN PRN IV SEE COMMENTS; Start 06/18/16 at 18: 30 Sodium Bicarbonate 150 meq/Sterile Water 1,150 ml @ 100 mls/hr [id number] PRN IV . ; Start 06/18/16 at 18:30; Stop 06/18/16 at 20:13; Status DC Potassium Chloride 50 ml @ 50 mls/hr 1X ONCE IV ; Start 06/18/16 at 19:45; Stop 06/18/16 at 20:44; Status UNV Potassium Phosphate 10 mmol/ Sodium Chloride 103.3333 ml @ 51.667 m... Q2H IV Last administered on 06/18/16 22:00; Start 06/18/16 at 20:00; Stop 06/18/16 at 23:59; Status DC Potassium Chloride (KCl Premix 10meq) 100 ml @ 100 mls/hr Q1H IV ; Start at 20:00; Stop 06/18/16 at 20:13; Status DC Gadobutrol (Gadavist) 7.5 mmol 1X ONCE IV Last administered on 06/18/16 23:10 ; Start 06/18/16 at 23:15; Stop 06/18/16 at 23:16; Status DC Insulin Aspart 0-9 UNITS Q6HRS SQ ; Start 06/19/16 at 06:00 Midazolam HCl 100 ml @ As Directed STK-MED ONCE IV ; Start 06/19/16 at 02:22; Stop 06/19/16 at 02:23; Status DC Midazolam HCl 100 ml @ 0 mls/hr CONT PRN IV SEE I/O RECORD Last administered on 06/20/16 02:40; Start 06/19/16 at 02:30 Cefepime HCl 2 gm/ Sodium Chloride 100 ml @ 200 mls/hr Q8HRS IV Last administered on 06/19/16 12:20; Start 06/19/16 at 10:00; Stop 06/19/16 at 12:25 ; Status DC Propofol (Diprivan) 100 ml @ As Directed STK-MED ONCE IV ; Start 06/19/16 at 16 :22; Stop 06/19/16 at 16:23; Status DC Epinephrine HCl 3 mg STK-MED ONCE .ROUTE ; Start 06/19/16 at 16:26; Stop at 16:27; Status DC Sodium Bicarbonate 50 meq STK-MED ONCE .ROUTE ; Start 06/19/16 at 16:26; Stop at 16:27; Status DC Propofol (Diprivan) 1,000 mg STK-MED ONCE IV ; Start 06/19/16 at 16:00; Stop at 08:03; Status DC Vitals/I & O Vital Sign - Last 24 Hours 06/19/16 06/19/16 06/19/16 06/19/16 09:00 10:00 11:00 12:00 Pulse 82 73 74 Resp 22 B/P 102/78 103/68 102/68 Pulse Ox 98 97 97 O2 Delivery Ventilator Ventilator Ventilator Mechanical Ventilator 06/19/16 06/19/16 06/19/16 06/19/16 12:00 12:05 13:00 14:00 Temp 98.1 98.1 Pulse 80 76 78 Resp 19 18 19 B/P 97/62 94/62 96/63 Pulse Ox 97 97 98 97 O2 Delivery Ventilator Ventilator Ventilator Ventilator 06/19/16 06/19/16 06/19/16 06/19/16 15:00 16:00 16:00 17:00 Temp 98.2 98.2 Pulse 75 84 96 Resp 19 22 B/P 94/60 97/62 94/60 Pulse Ox 97 98 96 O2 Delivery Ventilator Mechanical Ventilator Ventilator Ventilator 06/19/16 06/19/16 06/19/16 06/19/16 18:00 19:00 19:40 20:00 Temp 98.7 98.7 Pulse 80 75 116 Resp 18 19 27 B/P 96/62 109/65 110/67 Pulse Ox 97 97 98 97 O2 Delivery Ventilator Ventilator Ventilator Ventilator 06/19/16 06/19/16 06/19/16 06/19/16 20:00 21:00 22:00 22:10 Pulse 80 74 Resp 18 18 B/P 100/62 106/68 Pulse Ox 97 97 98 O2 Delivery Mechanical Ventilator Ventilator Ventilator Ventilator 06/19/16 06/20/16 06/20/16 06/20/16 23:00 00:00 00:00 00:06 Temp 98.4 98.4 Pulse 72 68 Resp 18 18 B/P 101/64 102/66 Pulse Ox 98 98 97 O2 Delivery Ventilator Mechanical Ventilator Ventilator Ventilator 06/20/16 06/20/16 06/20/16 06/20/16 01:00 02:09 03:00 03:20 Pulse 70 69 68 Resp 18 18 18 B/P 102/69 104/69 99/65 Pulse Ox 97 98 97 97 O2 Delivery Ventilator Ventilator Ventilator Ventilator 06/20/16 06/20/16 06/20/16 06/20/16 04:00 04:00 05:00 05:29 Temp 98.8 98.8 Pulse 70 68 Resp 18 18 B/P 100/63 96/60 Pulse Ox 97 98 98 O2 Delivery Mechanical Ventilator Ventilator Ventilator Ventilator 06/20/16 06/20/16 06/20/16 06/20/16 06:00 07:00 07:38 08:00 Pulse 67 66 80 Resp 18 18 22 B/P 98/61 94/61 100/65 Pulse Ox 98 98 99 98 O2 Delivery Ventilator Ventilator Ventilator Ventilator Intake and Output 06/19/16 06/19/16 06/20/16 15:00 23:00 07:00 Intake Total 105 ml 708 ml 1101 ml Output Total 360 ml 370 ml 420 ml Balance -255 ml 338 ml 681 ml YAHIR MCKENZIE MD Jun 20, 2016 08:59
[2016-06-20] MEDS ORDERED: LORAZEPAM 2 MG/ML VIAL IV PRN (09:00)
[2016-06-20] MEDS ORDERED: MORPHINE SULFATE 2 MG/ML DISP.SYRIN. IV PRN (09:00)
[2016-06-20] MEDS ORDERED: LORAZEPAM INTENSOL 2 MG/ML ORAL.CONC. SL PRN (09:00)
[2016-06-20] MEDS ORDERED: MORPHINE SULFATE 10 MG/5 ML ORAL SOLUTION. PO PRN (09:00)
--- NOTE | 2016-06-20 09:02 | PDOC ---
PROGRESS NOTES Chief Complaint Chief Complaint 1. Out of hospital CArdio pulmonary arrest on IPPV POA 2. BRain lesions, metastaticlikely primary source is lung CA 3. New onset SZ in the background of # 1 4. Ex smoker 5., HYpercalcemia, POA, resolved 6 metabolic acidosis, hyperkalemia POA, resolved 7. Bilateral PULM nodules 8 SIRS no sepsis, POA 9. MOd PCM 10. ARINA pOA, vasomotor vs ATN History of Present Illness History of Present Illness INtubated sedated on versed 10 to prevent SZ FAmily does not want to pursue CT chest/abd/pelvis\ Waiting on 1 brother then will withdraw care later MRI- I have personally reviewed, official read: FINDINGS Right temporal ring-enhancing mass measures 5.8 by 3.4 by 4.1 centimeters in size with associated edema. There is mild uncal herniation. Right parietal solid nodule measuring 4 millimeters in size has associated edema. Left frontal ring-enhancing mass measures 1.7 x 1.5 1.6 centimeters in size, associated edema. No additional enhancing lesion is identified. The ventricles and sulci are within normal limits for age. There is again mass effect with the right temporal lesion with uncal herniation and minimal midline shift. There is no acute intracranial hemorrhage or extra-axial fluid collection. There is blooming artifact layering dependently in both presumed necrotic metastases. This is compatible with a small amount of blood product. The intracranial flow voids are preserved. Sagittal midline structures are unremarkable. Pituitary and suprasellar region are unremarkable. There is ethmoid and sphenoid mucosal thickening. There is nonspecific fluid in the optic sheaths. IMPRESSION - 3 intracranial masses, 2 of which appear necrotic, the largest is in the right temporal lobe. Findings are compatible with metastatic disease given provided history of lung mass. - No evidence of an acute infarct. PLAN: STart morphine iV and SL Start ativan intensol PLans of withdrawal later today DNR Involve SW for hospice upon dc if makes it Vitals Vitals Vital Signs Date Time Temp Pulse Resp B/P Pulse Ox O2 Delivery O2 Flow Rate FiO2 06/20/16 08:00 80 22 100/65 98 Ventilator 06/20/16 04:00 98.8 98.8 Physical Exam General: Other (intubated, sedated on vent) Heart: Normal S1, Normal S2 Lungs: Crackles Abdomen: Soft, No hepatosplenomegaly Extremities: No clubbing, No cyanosis Skin: No significant lesion Labs LABS Laboratory Tests Test 06/19/16 12:14 06/19/16 18:29 06/20/16 00:43 06/20/16 08:00 Glucose (Fingerstick) 125mg/dL (70-99) 136mg/dL (70-99) 135mg/dL (70-99) O2 Saturation 98% (92-99) Arterial Blood pH 7.44 (7.35-7.45) Arterial Blood pCO2 at Patient Temp 30mmHg (35-46) Arterial Blood pO2 at Patient Temp 121mmHg (75-108) Arterial Blood HCO3 20mmol/L (21-28) Arterial Blood Base Excess -4mmol/L (-3-3) FiO2 40 Review of Systems Review of Systems intubated Assessment and Plan Assessmemt and Plan Problems Medical Problems: (1) Acidosis Status: Acute (2) Hyperkalemia Status: Acute (3) Mass, brain Status: Acute (4) Respiratory failure Status: Acute Problems: Comment Review of Relevant I have reviewed the following items augustin (where applicable) has been applied. Labs Laboratory Tests Test 06/18/16 14:20 06/18/16 14:25 06/18/16 14:26 06/18/16 14:45 White Blood Count 18.3x10^3/uL (4.0-11.0) Red Blood Count 5.10x10^6/uL (4.30-5.70) Hemoglobin 12.2g/dL (13.0-17.5) Hematocrit 41.9% (39.0-53.0) Mean Corpuscular Volume 82fL (79-100) Mean Corpuscular Hemoglobin 24pg (25-35) Mean Corpuscular Hemoglobin Concent 29g/dL (31-37) Red Cell Distribution Width 16.8% (11.5-14.5) Platelet Count 541x10^3/uL (140-400) Neutrophils (%) (Auto) 75% (31-73) Lymphocytes (%) (Auto) 21% (24-48) Monocytes (%) (Auto) 3% (0-9) Eosinophils (%) (Auto) 0% (0-3) Basophils (%) (Auto) 1% (0-3) Neutrophils # (Auto) 13.6x10^3uL (1.8-7.7) Lymphocytes # (Auto) 3.8x10^3/uL (1.0-4.8) Monocytes # (Auto) 0.6x10^3/uL (0.0-1.1) Eosinophils # (Auto) 0.1x10^3/uL (0.0-0.7) Basophils # (Auto) 0.2x10^3/uL (0.0-0.2) Segmented Neutrophils % 62% (35-66) Band Neutrophils % 6% (0-9) Lymphocytes % 27% (24-48) Monocytes % 3% (0-10) Eosinophils % 1% (0-5) Basophils % 1% (0-3) Platelet Estimate Increased (ADEQUATE) Hypochromasia Slight Poikilocytosis Slight Anisocytosis Slight Prothrombin Time 14.7SEC (11.7-14.0) Prothromb Time International Ratio 1.2 (0.8-1.1) Sodium Level 146mmol/L (136-145) Potassium Level 7.6mmol/L (3.5-5.1) Chloride Level 106mmol/L (98-107) Carbon Dioxide Level 19mmol/L (21-32) Anion Gap 21 (6-14) 23mmol/L (6-14) Blood Urea Nitrogen 14mg/dL (8-26) Creatinine 1.8mg/dL (0.7-1.3) Estimated GFR (Cockcroft-Gault) 33.8 Glucose Level 259mg/dL (70-99) 245mg/dL (70-99) Calcium Level 12.6mg/dL (8.5-10.1) Creatine Kinase 40U/L (39-308) Troponin I Quantitative < 0.017ng/mL (0.000-0.055) Bedside Troponin I 0.01ng/ml (<0.08) Bedside Hemoglobin 14.3g/dL (14-18) Bedside Hematocrit 42% (37-52) Bedside Sodium 148mmol/L (135-145) Bedside Potassium 7.0mmol/L (3.5-5.0) Bedside Chloride 113mmol/L (98-110) Bedside Total CO2 20mmol/L (23-32) Bedside Blood Urea Nitrogen 13mg/dL (8-26) Bedside Creatinine 1.2mg/dL (0.5-1.4) Bedside Ionized Calcium (Yuly) 1.52mmol/L (1.13-1.32) Urine Opiates Screen Neg (NEG) Urine Methadone Screen Neg (NEG) Urine Barbiturates Neg (NEG) Urine Phencyclidine Screen Neg (NEG) Urine Amphetamine/Methamphetamine Neg (NEG) Urine Benzodiazepines Screen Neg (NEG) Urine Cocaine Screen Neg (NEG) Urine Cannabinoids Screen Neg (NEG) Urine Ethyl Alcohol Neg (NEG) Test 06/18/16 15:20 06/18/16 18:15 06/18/16 19:00 06/19/16 00:31 O2 Saturation 90% (92-99) Arterial Blood pH 7.27 (7.35-7.45) Arterial Blood pCO2 at Patient Temp 31mmHg (35-46) Arterial Blood pO2 at Patient Temp 70mmHg (65-108) Arterial Blood HCO3 14mmol/L (21-28) Arterial Blood Base Excess -12mmol/L (-3-3) FiO2 40.0 Nasal Screen MRSA (PCR) Negative (Negative) Sodium Level 139mmol/L (136-145) Potassium Level 3.3mmol/L (3.5-5.1) Chloride Level 104mmol/L (98-107) Carbon Dioxide Level 25mmol/L (21-32) Anion Gap 10 (6-14) Blood Urea Nitrogen 13mg/dL (8-26) Creatinine 1.1mg/dL (0.7-1.3) Estimated GFR (Cockcroft-Gault) 71.8 Glucose Level 169mg/dL (70-99) Calcium Level 8.9mg/dL (8.5-10.1) Phosphorus Level 1.5mg/dL (2.6-4.7) Magnesium Level 2.2mg/dL (1.8-2.4) Creatine Kinase 225U/L (39-308) Creatine Kinase MB (Mass) 3.3ng/mL (0.0-3.6) Creatine Kinase MB Relative Index 1.5% (0-4) Albumin 2.0g/dL (3.4-5.0) Glucose (Fingerstick) 150mg/dL (70-99) Test 06/19/16 06:25 06/19/16 08:00 06/19/16 12:14 06/19/16 18:29 White Blood Count 10.5x10^3/uL (4.0-11.0) Red Blood Count 3.53x10^6/uL (4.30-5.70) Hemoglobin 8.5g/dL (13.0-17.5) Hematocrit 26.6% (39.0-53.0) Mean Corpuscular Volume 75fL (79-100) Mean Corpuscular Hemoglobin 24pg (25-35) Mean Corpuscular Hemoglobin Concent 32g/dL (31-37) Red Cell Distribution Width 15.8% (11.5-14.5) Platelet Count 328x10^3/uL (140-400) Neutrophils (%) (Auto) 86% (31-73) Lymphocytes (%) (Auto) 10% (24-48) Monocytes (%) (Auto) 3% (0-9) Eosinophils (%) (Auto) 0% (0-3) Basophils (%) (Auto) 1% (0-3) Neutrophils # (Auto) 9.0x10^3uL (1.8-7.7) Lymphocytes # (Auto) 1.0x10^3/uL (1.0-4.8) Monocytes # (Auto) 0.4x10^3/uL (0.0-1.1) Eosinophils # (Auto) 0.0x10^3/uL (0.0-0.7) Basophils # (Auto) 0.1x10^3/uL (0.0-0.2) Segmented Neutrophils % 77% (35-66) Band Neutrophils % 9% (0-9) Lymphocytes % 11% (24-48) Monocytes % 3% (0-10) Platelet Estimate Adequate (ADEQUATE) Hypochromasia Present Anisocytosis Present Sodium Level 140mmol/L (136-145) Potassium Level 3.9mmol/L (3.5-5.1) Chloride Level 106mmol/L (98-107) Carbon Dioxide Level 21mmol/L (21-32) Anion Gap 13 (6-14) Blood Urea Nitrogen 15mg/dL (8-26) Creatinine 1.2mg/dL (0.7-1.3) Estimated GFR (Cockcroft-Gault) 64.9 Glucose Level 132mg/dL (70-99) Calcium Level 9.1mg/dL (8.5-10.1) O2 Saturation 98% (92-99) Arterial Blood pH 7.52 (7.35-7.45) Arterial Blood pCO2 at Patient Temp 26mmHg (35-46) Arterial Blood pO2 at Patient Temp 130mmHg (75-108) Arterial Blood HCO3 21mmol/L (21-28) Arterial Blood Base Excess -1mmol/L (-3-3) FiO2 50 Glucose (Fingerstick) 125mg/dL (70-99) 136mg/dL (70-99) Test 06/20/16 00:43 06/20/16 08:00 Glucose (Fingerstick) 135mg/dL (70-99) O2 Saturation 98% (92-99) Arterial Blood pH 7.44 (7.35-7.45) Arterial Blood pCO2 at Patient Temp 30mmHg (35-46) Arterial Blood pO2 at Patient Temp 121mmHg (75-108) Arterial Blood HCO3 20mmol/L (21-28) Arterial Blood Base Excess -4mmol/L (-3-3) FiO2 40 Laboratory Tests Test 06/19/16 12:14 06/19/16 18:29 06/20/16 00:43 06/20/16 08:00 Glucose (Fingerstick) 125mg/dL (70-99) 136mg/dL (70-99) 135mg/dL (70-99) O2 Saturation 98% (92-99) Arterial Blood pH 7.44 (7.35-7.45) Arterial Blood pCO2 at Patient Temp 30mmHg (35-46) Arterial Blood pO2 at Patient Temp 121mmHg (75-108) Arterial Blood HCO3 20mmol/L (21-28) Arterial Blood Base Excess -4mmol/L (-3-3) FiO2 40 Medications Current Medications Sodium Chloride 1,000 ml @ 1,000 mls/hr 1X ONCE IV Last administered on 14:51; Start 06/18/16 at 14:30; Stop 06/18/16 at 15:29; Status DC Sodium Chloride (Iv Sodium Chloride 0.9% 1000ml Bag) 1,000 ml @ 1,000 mls/hr Q1H IV Last administered on 06/18/16 16:00; Start 06/18/16 at 14:29; Stop at 15:28; Status DC Dextrose 25 gm 1X ONCE IV Last administered on 06/18/16 15:26; Start at 14:30; Stop 06/18/16 at 14:39; Status DC Insulin Human Regular (Novolin R Vial) 10 unit 1X ONCE IV Last administered on 06/18/16 15:29; Start 06/18/16 at 14:30; Stop 06/18/16 at 14:39; Status DC Calcium Gluconate 1000 mg 1,000 mg 1X ONCE IVP Last administered on 06/18/16 15:30; Start 06/18/16 at 14:30; Stop 06/18/16 at 14:39; Status DC Sodium Bicarbonate 50 meq/Dextrose/ Sodium Chloride 1,050 ml @ 125 mls/hr 1X ONCE IV Last administered on 06/18/16 15:25; Start 06/18/16 at 14:45; Stop at 23:08; Status DC Sodium Bicarbonate/ Dextrose/Sodium Chloride (Iv D5% - 1/2 NS) 1,150 ml @ 125 mls/hr 1X ONCE IV Last administered on 06/18/16 15:15; Start 06/18/16 at 15: 15; Stop 06/19/16 at 00:26; Status DC Sodium Bicarbonate 50 meq 1X ONCE IV ; Start 06/18/16 at 15:15; Stop 06/18/16 at 15:22; Status DC Dexamethasone Sodium Phosphate (Decadron) 10 mg 1X ONCE IV Last administered on 06/18/16 15:51; Start 06/18/16 at 15:15; Stop 06/18/16 at 15:22; Status DC Dexamethasone Sodium Phosphate 4 mg 4 mg Q6HRS IV Last administered on 00:41; Start 06/18/16 at 18:00 Levetiracetam/ Sodium Chloride (Keppra/Iv Sodium Chloride 0.9% 100ml) 105 ml @ 400 mls/hr Q12HR IV Last administered on 06/19/16 21:56; Start 06/18/16 at 16: 00 Lorazepam (Ativan) 1 mg 1X ONCE IV Last administered on 06/18/16 14:07; Start 06/18/16 at 15:45; Stop 06/18/16 at 15:46; Status DC Fentanyl Citrate 50 mcg 50 mcg 1X ONCE IV Last administered on 06/18/16 15:40 ; Start 06/18/16 at 15:45; Stop 06/18/16 at 15:46; Status DC Midazolam HCl (Versed 100mg/ 100ml Premix) 100 ml @ 0 mls/hr 1X ONCE IV Last administered on 06/18/16 15:59; Start 06/18/16 at 15:45; Stop 06/18/16 at 15:46 ; Status DC Ondansetron HCl (Zofran) 4 mg PRN Q8HRS PRN IV NAUSEA/VOMITING; Start 06/18/16 at 15:45; Stop 06/19/16 at 08:53; Status DC Fentanyl Citrate 50 mcg 50 mcg PRN Q2HR PRN IV PAIN; Start 06/18/16 at 15:45; Stop 06/19/16 at 15:44; Status DC Sodium Chloride (Iv Sodium Chloride 0.9% 1000ml Bag) 1,000 ml @ 150 mls/hr Q6H40M IV Last administered on 06/19/16 12:19; Start 06/18/16 at 15:40; Stop 06/19/16 at 15:39; Status DC Ondansetron HCl (Zofran) 4 mg PRN Q6HRS PRN IV NAUSEA/VOMITING; Start 06/18/16 at 18:30 Pantoprazole Sodium (Protonix Vial) 40 mg DAILYAC IVP Last administered on 06/19 09:35; Start 06/19/16 at 07:30 Heparin Sodium (Porcine) 5,000 unit Q8HRS SQ Last administered on 06/19/16 21: 56; Start 06/18/16 at 22:00 Insulin Aspart (Novolog) 0-9 UNITS QIDACHS SQ ; Start 06/18/16 at 21:00; Stop at 00:18; Status DC Dextrose 12.5 gm 12.5 gm PRN Q15MIN PRN IV SEE COMMENTS; Start 06/18/16 at 18: 30 Sodium Bicarbonate 150 meq/Sterile Water 1,150 ml @ 100 mls/hr [id number] PRN IV . ; Start 06/18/16 at 18:30; Stop 06/18/16 at 20:13; Status DC Potassium Chloride 50 ml @ 50 mls/hr 1X ONCE IV ; Start 06/18/16 at 19:45; Stop 06/18/16 at 20:44; Status UNV Potassium Phosphate 10 mmol/ Sodium Chloride 103.3333 ml @ 51.667 m... Q2H IV Last administered on 06/18/16 22:00; Start 06/18/16 at 20:00; Stop 06/18/16 at 23:59; Status DC Potassium Chloride (KCl Premix 10meq) 100 ml @ 100 mls/hr Q1H IV ; Start at 20:00; Stop 06/18/16 at 20:13; Status DC Gadobutrol (Gadavist) 7.5 mmol 1X ONCE IV Last administered on 06/18/16 23:10 ; Start 06/18/16 at 23:15; Stop 06/18/16 at 23:16; Status DC Insulin Aspart 0-9 UNITS Q6HRS SQ ; Start 06/19/16 at 06:00 Midazolam HCl 100 ml @ As Directed STK-MED ONCE IV ; Start 06/19/16 at 02:22; Stop 06/19/16 at 02:23; Status DC Midazolam HCl 100 ml @ 0 mls/hr CONT PRN IV SEE I/O RECORD Last administered on 06/20/16 02:40; Start 06/19/16 at 02:30 Cefepime HCl 2 gm/ Sodium Chloride 100 ml @ 200 mls/hr Q8HRS IV Last administered on 06/19/16 12:20; Start 06/19/16 at 10:00; Stop 06/19/16 at 12:25 ; Status DC Propofol (Diprivan) 100 ml @ As Directed STK-MED ONCE IV ; Start 06/19/16 at 16 :22; Stop 06/19/16 at 16:23; Status DC Epinephrine HCl 3 mg STK-MED ONCE .ROUTE ; Start 06/19/16 at 16:26; Stop at 16:27; Status DC Sodium Bicarbonate 50 meq STK-MED ONCE .ROUTE ; Start 06/19/16 at 16:26; Stop at 16:27; Status DC Propofol (Diprivan) 1,000 mg STK-MED ONCE IV ; Start 06/19/16 at 16:00; Stop at 08:03; Status DC Vitals/I & O Vital Sign - Last 24 Hours 06/19/16 06/19/16 06/19/16 06/19/16 10:00 11:00 12:00 12:00 Temp 98.1 98.1 Pulse 73 74 80 Resp 22 22 19 B/P 103/68 102/68 97/62 Pulse Ox 97 97 97 O2 Delivery Ventilator Ventilator Mechanical Ventilator Ventilator 06/19/16 06/19/16 06/19/16 06/19/16 12:05 13:00 14:00 15:00 Pulse 76 78 75 Resp 18 19 19 B/P 94/62 96/63 94/60 Pulse Ox 97 98 97 97 O2 Delivery Ventilator Ventilator Ventilator Ventilator 06/19/16 06/19/16 06/19/16 06/19/16 16:00 16:00 17:00 18:00 Temp 98.2 98.2 Pulse 84 96 80 Resp 20 22 18 B/P 97/62 94/60 96/62 Pulse Ox 98 96 97 O2 Delivery Mechanical Ventilator Ventilator Ventilator Ventilator 06/19/16 06/19/16 06/19/16 06/19/16 19:00 19:40 20:00 20:00 Temp 98.7 98.7 Pulse 75 116 Resp 19 27 B/P 109/65 110/67 Pulse Ox 97 98 97 O2 Delivery Ventilator Ventilator Ventilator Mechanical Ventilator 06/19/16 06/19/16 06/19/16 06/19/16 21:00 22:00 22:10 23:00 Pulse 80 74 72 Resp 18 18 18 B/P 100/62 106/68 101/64 Pulse Ox 97 97 98 98 O2 Delivery Ventilator Ventilator Ventilator Ventilator 06/20/16 06/20/16 06/20/16 06/20/16 00:00 00:00 00:06 01:00 Temp 98.4 98.4 Pulse 68 70 Resp 18 18 B/P 102/66 102/69 Pulse Ox 98 97 97 O2 Delivery Mechanical Ventilator Ventilator Ventilator Ventilator 06/20/16 06/20/16 06/20/16 06/20/16 02:09 03:00 03:20 04:00 Pulse 69 68 Resp 18 18 B/P 104/69 99/65 Pulse Ox 98 97 97 O2 Delivery Ventilator Ventilator Ventilator Mechanical Ventilator 06/20/16 06/20/16 06/20/16 06/20/16 04:00 05:00 05:29 06:00 Temp 98.8 98.8 Pulse 70 68 67 Resp 18 18 18 B/P 100/63 96/60 98/61 Pulse Ox 97 98 98 98 O2 Delivery Ventilator Ventilator Ventilator Ventilator 06/20/16 06/20/16 06/20/16 07:00 07:38 08:00 Pulse 66 80 Resp 18 22 B/P 94/61 100/65 Pulse Ox 98 99 98 O2 Delivery Ventilator Ventilator Ventilator Intake and Output 06/19/16 06/19/16 06/20/16 15:00 23:00 07:00 Intake Total 105 ml 708 ml 1101 ml Output Total 360 ml 370 ml 420 ml Balance -255 ml 338 ml 681 ml VAN GONZALEZ MD Jun 20, 2016 09:02
[2016-06-20] MEDS: LEVETIRACETAM 500 MG in IV NORMAL SALINE 100ML 100 ML IV SCH (09:16)
--- NOTE | 2016-06-20 09:50 | PDOC ---
PROGRESS NOTES Assessment Problems Medical Problems: (1) Acidosis Status: Acute (2) Hyperkalemia Status: Acute (3) Mass, brain Status: Acute (4) Respiratory failure Status: Acute Multiple brain mets Posturing when versed drip reduced, doubt activity is epileptic Plan Family plans to extubate today Subjective none Objective Vital Signs Date Time Temp Pulse Resp B/P Pulse Ox O2 Delivery O2 Flow Rate FiO2 06/20/16 08:00 80 22 100/65 98 Ventilator 06/20/16 04:00 98.8 98.8 Intake and Output 06/20/16 07:00 Intake Total 1914 ml Output Total 1150 ml Balance 764 ml Intake Oral 0 ml IV Total 479 ml Tube Feeding 1035 ml Other 400 ml Output Urine Total 1150 ml Gastric Drainage Total 0 ml PHYSICAL EXAM Sedated on vent PERRL no extraocular movements No pain response D.T.R.s 1+, plantars silent Review of Relevant I have reviewed the following items augustin (where applicable) has been applied. Labs Laboratory Tests Test 06/18/16 14:20 06/18/16 14:25 06/18/16 14:26 06/18/16 14:45 White Blood Count 18.3x10^3/uL (4.0-11.0) Red Blood Count 5.10x10^6/uL (4.30-5.70) Hemoglobin 12.2g/dL (13.0-17.5) Hematocrit 41.9% (39.0-53.0) Mean Corpuscular Volume 82fL (79-100) Mean Corpuscular Hemoglobin 24pg (25-35) Mean Corpuscular Hemoglobin Concent 29g/dL (31-37) Red Cell Distribution Width 16.8% (11.5-14.5) Platelet Count 541x10^3/uL (140-400) Neutrophils (%) (Auto) 75% (31-73) Lymphocytes (%) (Auto) 21% (24-48) Monocytes (%) (Auto) 3% (0-9) Eosinophils (%) (Auto) 0% (0-3) Basophils (%) (Auto) 1% (0-3) Neutrophils # (Auto) 13.6x10^3uL (1.8-7.7) Lymphocytes # (Auto) 3.8x10^3/uL (1.0-4.8) Monocytes # (Auto) 0.6x10^3/uL (0.0-1.1) Eosinophils # (Auto) 0.1x10^3/uL (0.0-0.7) Basophils # (Auto) 0.2x10^3/uL (0.0-0.2) Segmented Neutrophils % 62% (35-66) Band Neutrophils % 6% (0-9) Lymphocytes % 27% (24-48) Monocytes % 3% (0-10) Eosinophils % 1% (0-5) Basophils % 1% (0-3) Platelet Estimate Increased (ADEQUATE) Hypochromasia Slight Poikilocytosis Slight Anisocytosis Slight Prothrombin Time 14.7SEC (11.7-14.0) Prothromb Time International Ratio 1.2 (0.8-1.1) Sodium Level 146mmol/L (136-145) Potassium Level 7.6mmol/L (3.5-5.1) Chloride Level 106mmol/L (98-107) Carbon Dioxide Level 19mmol/L (21-32) Anion Gap 21 (6-14) 23mmol/L (6-14) Blood Urea Nitrogen 14mg/dL (8-26) Creatinine 1.8mg/dL (0.7-1.3) Estimated GFR (Cockcroft-Gault) 33.8 Glucose Level 259mg/dL (70-99) 245mg/dL (70-99) Calcium Level 12.6mg/dL (8.5-10.1) Creatine Kinase 40U/L (39-308) Troponin I Quantitative < 0.017ng/mL (0.000-0.055) Bedside Troponin I 0.01ng/ml (<0.08) Bedside Hemoglobin 14.3g/dL (14-18) Bedside Hematocrit 42% (37-52) Bedside Sodium 148mmol/L (135-145) Bedside Potassium 7.0mmol/L (3.5-5.0) Bedside Chloride 113mmol/L (98-110) Bedside Total CO2 20mmol/L (23-32) Bedside Blood Urea Nitrogen 13mg/dL (8-26) Bedside Creatinine 1.2mg/dL (0.5-1.4) Bedside Ionized Calcium (Yuly) 1.52mmol/L (1.13-1.32) Urine Opiates Screen Neg (NEG) Urine Methadone Screen Neg (NEG) Urine Barbiturates Neg (NEG) Urine Phencyclidine Screen Neg (NEG) Urine Amphetamine/Methamphetamine Neg (NEG) Urine Benzodiazepines Screen Neg (NEG) Urine Cocaine Screen Neg (NEG) Urine Cannabinoids Screen Neg (NEG) Urine Ethyl Alcohol Neg (NEG) Test 06/18/16 15:20 06/18/16 18:15 06/18/16 19:00 06/19/16 00:31 O2 Saturation 90% (92-99) Arterial Blood pH 7.27 (7.35-7.45) Arterial Blood pCO2 at Patient Temp 31mmHg (35-46) Arterial Blood pO2 at Patient Temp 70mmHg (65-108) Arterial Blood HCO3 14mmol/L (21-28) Arterial Blood Base Excess -12mmol/L (-3-3) FiO2 40.0 Nasal Screen MRSA (PCR) Negative (Negative) Sodium Level 139mmol/L (136-145) Potassium Level 3.3mmol/L (3.5-5.1) Chloride Level 104mmol/L (98-107) Carbon Dioxide Level 25mmol/L (21-32) Anion Gap 10 (6-14) Blood Urea Nitrogen 13mg/dL (8-26) Creatinine 1.1mg/dL (0.7-1.3) Estimated GFR (Cockcroft-Gault) 71.8 Glucose Level 169mg/dL (70-99) Calcium Level 8.9mg/dL (8.5-10.1) Phosphorus Level 1.5mg/dL (2.6-4.7) Magnesium Level 2.2mg/dL (1.8-2.4) Creatine Kinase 225U/L (39-308) Creatine Kinase MB (Mass) 3.3ng/mL (0.0-3.6) Creatine Kinase MB Relative Index 1.5% (0-4) Albumin 2.0g/dL (3.4-5.0) Glucose (Fingerstick) 150mg/dL (70-99) Test 06/19/16 06:25 06/19/16 08:00 06/19/16 12:14 06/19/16 18:29 White Blood Count 10.5x10^3/uL (4.0-11.0) Red Blood Count 3.53x10^6/uL (4.30-5.70) Hemoglobin 8.5g/dL (13.0-17.5) Hematocrit 26.6% (39.0-53.0) Mean Corpuscular Volume 75fL (79-100) Mean Corpuscular Hemoglobin 24pg (25-35) Mean Corpuscular Hemoglobin Concent 32g/dL (31-37) Red Cell Distribution Width 15.8% (11.5-14.5) Platelet Count 328x10^3/uL (140-400) Neutrophils (%) (Auto) 86% (31-73) Lymphocytes (%) (Auto) 10% (24-48) Monocytes (%) (Auto) 3% (0-9) Eosinophils (%) (Auto) 0% (0-3) Basophils (%) (Auto) 1% (0-3) Neutrophils # (Auto) 9.0x10^3uL (1.8-7.7) Lymphocytes # (Auto) 1.0x10^3/uL (1.0-4.8) Monocytes # (Auto) 0.4x10^3/uL (0.0-1.1) Eosinophils # (Auto) 0.0x10^3/uL (0.0-0.7) Basophils # (Auto) 0.1x10^3/uL (0.0-0.2) Segmented Neutrophils % 77% (35-66) Band Neutrophils % 9% (0-9) Lymphocytes % 11% (24-48) Monocytes % 3% (0-10) Platelet Estimate Adequate (ADEQUATE) Hypochromasia Present Anisocytosis Present Sodium Level 140mmol/L (136-145) Potassium Level 3.9mmol/L (3.5-5.1) Chloride Level 106mmol/L (98-107) Carbon Dioxide Level 21mmol/L (21-32) Anion Gap 13 (6-14) Blood Urea Nitrogen 15mg/dL (8-26) Creatinine 1.2mg/dL (0.7-1.3) Estimated GFR (Cockcroft-Gault) 64.9 Glucose Level 132mg/dL (70-99) Calcium Level 9.1mg/dL (8.5-10.1) O2 Saturation 98% (92-99) Arterial Blood pH 7.52 (7.35-7.45) Arterial Blood pCO2 at Patient Temp 26mmHg (35-46) Arterial Blood pO2 at Patient Temp 130mmHg (75-108) Arterial Blood HCO3 21mmol/L (21-28) Arterial Blood Base Excess -1mmol/L (-3-3) FiO2 50 Glucose (Fingerstick) 125mg/dL (70-99) 136mg/dL (70-99) Test 06/20/16 00:43 06/20/16 08:00 06/20/16 09:18 Glucose (Fingerstick) 135mg/dL (70-99) 143mg/dL (70-99) O2 Saturation 98% (92-99) Arterial Blood pH 7.44 (7.35-7.45) Arterial Blood pCO2 at Patient Temp 30mmHg (35-46) Arterial Blood pO2 at Patient Temp 121mmHg (75-108) Arterial Blood HCO3 20mmol/L (21-28) Arterial Blood Base Excess -4mmol/L (-3-3) FiO2 40 Laboratory Tests Test 06/19/16 12:14 06/19/16 18:29 06/20/16 00:43 06/20/16 08:00 Glucose (Fingerstick) 125mg/dL (70-99) 136mg/dL (70-99) 135mg/dL (70-99) O2 Saturation 98% (92-99) Arterial Blood pH 7.44 (7.35-7.45) Arterial Blood pCO2 at Patient Temp 30mmHg (35-46) Arterial Blood pO2 at Patient Temp 121mmHg (75-108) Arterial Blood HCO3 20mmol/L (21-28) Arterial Blood Base Excess -4mmol/L (-3-3) FiO2 40 Test 06/20/16 09:18 Glucose (Fingerstick) 143mg/dL (70-99) Medications Current Medications Sodium Chloride 1,000 ml @ 1,000 mls/hr 1X ONCE IV Last administered on t 14:51; Start 06/18/16 at 14:30; Stop 06/18/16 at 15:29; Status DC Sodium Chloride (Iv Sodium Chloride 0.9% 1000ml Bag) 1,000 ml @ 1,000 mls/hr Q1H IV Last administered on 06/18/16 16:00; Start 06/18/16 at 14:29; Stop at 15:28; Status DC Dextrose 25 gm 1X ONCE IV Last administered on 06/18/16 15:26; Start at 14:30; Stop 06/18/16 at 14:39; Status DC Insulin Human Regular (Novolin R Vial) 10 unit 1X ONCE IV Last administered on 06/18/16 15:29; Start 06/18/16 at 14:30; Stop 06/18/16 at 14:39; Status DC Calcium Gluconate 1000 mg 1,000 mg 1X ONCE IVP Last administered on 06/18/16 15:30; Start 06/18/16 at 14:30; Stop 06/18/16 at 14:39; Status DC Sodium Bicarbonate 50 meq/Dextrose/ Sodium Chloride 1,050 ml @ 125 mls/hr 1X ONCE IV Last administered on 06/18/16 15:25; Start 06/18/16 at 14:45; Stop at 23:08; Status DC Sodium Bicarbonate/ Dextrose/Sodium Chloride (Iv D5% - 1/2 NS) 1,150 ml @ 125 mls/hr 1X ONCE IV Last administered on 06/18/16 15:15; Start 06/18/16 at 15: 15; Stop 06/19/16 at 00:26; Status DC Sodium Bicarbonate 50 meq 1X ONCE IV ; Start 06/18/16 at 15:15; Stop 06/18/16 at 15:22; Status DC Dexamethasone Sodium Phosphate (Decadron) 10 mg 1X ONCE IV Last administered on 06/18/16 15:51; Start 06/18/16 at 15:15; Stop 06/18/16 at 15:22; Status DC Dexamethasone Sodium Phosphate 4 mg 4 mg Q6HRS IV Last administered on 09:16; Start 06/18/16 at 18:00 Levetiracetam/ Sodium Chloride (Keppra/Iv Sodium Chloride 0.9% 100ml) 105 ml @ 400 mls/hr Q12HR IV Last administered on 06/20/16 09:16; Start 06/18/16 at 16: 00 Lorazepam (Ativan) 1 mg 1X ONCE IV Last administered on 06/18/16 14:07; Start 06/18/16 at 15:45; Stop 06/18/16 at 15:46; Status DC Fentanyl Citrate 50 mcg 50 mcg 1X ONCE IV Last administered on 06/18/16 15:40 ; Start 06/18/16 at 15:45; Stop 06/18/16 at 15:46; Status DC Midazolam HCl (Versed 100mg/ 100ml Premix) 100 ml @ 0 mls/hr 1X ONCE IV Last administered on 06/18/16 15:59; Start 06/18/16 at 15:45; Stop 06/18/16 at 15:46 ; Status DC Ondansetron HCl (Zofran) 4 mg PRN Q8HRS PRN IV NAUSEA/VOMITING; Start 06/18/16 at 15:45; Stop 06/19/16 at 08:53; Status DC Fentanyl Citrate 50 mcg 50 mcg PRN Q2HR PRN IV PAIN; Start 06/18/16 at 15:45; Stop 06/19/16 at 15:44; Status DC Sodium Chloride (Iv Sodium Chloride 0.9% 1000ml Bag) 1,000 ml @ 150 mls/hr Q6H40M IV Last administered on 06/19/16 12:19; Start 06/18/16 at 15:40; Stop 06/19/16 at 15:39; Status DC Ondansetron HCl (Zofran) 4 mg PRN Q6HRS PRN IV NAUSEA/VOMITING; Start 06/18/16 at 18:30 Pantoprazole Sodium (Protonix Vial) 40 mg DAILYAC IVP Last administered on 06/19 09:35; Start 06/19/16 at 07:30; Stop 06/20/16 at 09:01; Status DC Heparin Sodium (Porcine) 5,000 unit Q8HRS SQ Last administered on 06/19/16 21: 56; Start 06/18/16 at 22:00; Stop 06/20/16 at 09:01; Status DC Insulin Aspart (Novolog) 0-9 UNITS QIDACHS SQ ; Start 06/18/16 at 21:00; Stop at 00:18; Status DC Dextrose 12.5 gm 12.5 gm PRN Q15MIN PRN IV SEE COMMENTS; Start 06/18/16 at 18: 30 Sodium Bicarbonate 150 meq/Sterile Water 1,150 ml @ 100 mls/hr [id number] PRN IV . ; Start 06/18/16 at 18:30; Stop 06/18/16 at 20:13; Status DC Potassium Chloride 50 ml @ 50 mls/hr 1X ONCE IV ; Start 06/18/16 at 19:45; Stop 06/18/16 at 20:44; Status UNV Potassium Phosphate 10 mmol/ Sodium Chloride 103.3333 ml @ 51.667 m... Q2H IV Last administered on 06/18/16 22:00; Start 06/18/16 at 20:00; Stop 06/18/16 at 23:59; Status DC Potassium Chloride (KCl Premix 10meq) 100 ml @ 100 mls/hr Q1H IV ; Start at 20:00; Stop 06/18/16 at 20:13; Status DC Gadobutrol (Gadavist) 7.5 mmol 1X ONCE IV Last administered on 06/18/16 23:10 ; Start 06/18/16 at 23:15; Stop 06/18/16 at 23:16; Status DC Insulin Aspart 0-9 UNITS Q6HRS SQ ; Start 06/19/16 at 06:00 Midazolam HCl 100 ml @ As Directed STK-MED ONCE IV ; Start 06/19/16 at 02:22; Stop 06/19/16 at 02:23; Status DC Midazolam HCl 100 ml @ 0 mls/hr CONT PRN IV SEE I/O RECORD Last administered on 06/20/16 09:34; Start 06/19/16 at 02:30 Cefepime HCl 2 gm/ Sodium Chloride 100 ml @ 200 mls/hr Q8HRS IV Last administered on 06/19/16 12:20; Start 06/19/16 at 10:00; Stop 06/19/16 at 12:25 ; Status DC Propofol (Diprivan) 100 ml @ As Directed STK-MED ONCE IV ; Start 06/19/16 at 16 :22; Stop 06/19/16 at 16:23; Status DC Epinephrine HCl 3 mg STK-MED ONCE .ROUTE ; Start 06/19/16 at 16:26; Stop at 16:27; Status DC Sodium Bicarbonate 50 meq STK-MED ONCE .ROUTE ; Start 06/19/16 at 16:26; Stop at 16:27; Status DC Propofol (Diprivan) 1,000 mg STK-MED ONCE IV ; Start 06/19/16 at 16:00; Stop at 08:03; Status DC Morphine Sulfate 2 mg PRN Q2HR PRN IV PAIN; Start 06/20/16 at 09:00 Morphine Sulfate (Morphine Oral Solution) 10 mg PRN Q3HRS PRN PO PAIN; Start at 09:00 Lorazepam (Ativan Intensol) 2 mg PRN Q6HRS PRN SL ANXIETY / AGITATION; Start at 09:00 Lorazepam (Ativan) 2 mg PRN Q4HRS PRN IV ANXIETY / AGITATION; Start 06/20/16 at 09:00 Vitals/I & O Vital Sign - Last 24 Hours 06/19/16 06/19/16 06/19/16 06/19/16 10:00 11:00 12:00 12:00 Temp 98.1 98.1 Pulse 73 74 80 Resp 19 B/P 103/68 102/68 97/62 Pulse Ox 97 97 97 O2 Delivery Ventilator Ventilator Mechanical Ventilator Ventilator 06/19/16 06/19/16 06/19/16 06/19/16 12:05 13:00 14:00 15:00 Pulse 76 78 75 Resp 18 19 B/P 94/62 96/63 94/60 Pulse Ox 97 98 97 97 O2 Delivery Ventilator Ventilator Ventilator Ventilator 06/19/16 06/19/16 06/19/16 06/19/16 16:00 16:00 17:00 18:00 Temp 98.2 98.2 Pulse 84 96 80 Resp 20 18 B/P 97/62 94/60 96/62 Pulse Ox 98 96 97 O2 Delivery Mechanical Ventilator Ventilator Ventilator Ventilator 06/19/16 06/19/16 06/19/16 06/19/16 19:00 19:40 20:00 20:00 Temp 98.7 98.7 Pulse 75 116 Resp 27 B/P 109/65 110/67 Pulse Ox 97 98 97 O2 Delivery Ventilator Ventilator Ventilator Mechanical Ventilator 06/19/16 06/19/16 06/19/16 06/19/16 21:00 22:00 22:10 23:00 Pulse 80 74 72 Resp 18 18 18 B/P 100/62 106/68 101/64 Pulse Ox 97 97 98 98 O2 Delivery Ventilator Ventilator Ventilator Ventilator 06/20/16 06/20/16 06/20/16 06/20/16 00:00 00:00 00:06 01:00 Temp 98.4 98.4 Pulse 68 70 Resp 18 18 B/P 102/66 102/69 Pulse Ox 98 97 97 O2 Delivery Mechanical Ventilator Ventilator Ventilator Ventilator 06/20/16 06/20/16 06/20/16 06/20/16 02:09 03:00 03:20 04:00 Pulse 69 68 Resp 18 18 B/P 104/69 99/65 Pulse Ox 98 97 97 O2 Delivery Ventilator Ventilator Ventilator Mechanical Ventilator 06/20/16 06/20/16 06/20/16 06/20/16 04:00 05:00 05:29 06:00 Temp 98.8 98.8 Pulse 70 68 67 Resp 18 18 18 B/P 100/63 96/60 98/61 Pulse Ox 97 98 98 98 O2 Delivery Ventilator Ventilator Ventilator Ventilator 06/20/16 06/20/16 06/20/16 06/20/16 07:00 07:38 08:00 08:00 Pulse 66 80 Resp 18 22 B/P 94/61 100/65 Pulse Ox 98 99 98 O2 Delivery Ventilator Ventilator Mechanical Ventilator Ventilator Intake and Output 06/19/16 06/19/16 06/20/16 15:00 23:00 07:00 Intake Total 105 ml 708 ml 1101 ml Output Total 360 ml 370 ml 420 ml Balance -255 ml 338 ml 681 ml JERI HAYES MD Jun 20, 2016 09:50
== END 2016-06-20 15:47 | disposition expired | DRG 208 ==
LOC: EDBD 14:03 → ER 14:03 → 1 WEST ICU 15:51
PROVIDERS: ADMIT Internal Medicine; ATTEND Internal Medicine
PROC: 5A12012 Performance of Cardiac Output, Single, Manual (ICD-10-PCS; principal; 2016-06-18)
PROC: 0BH17EZ Insertion of Endotracheal Airway into Trachea, Via Natural or Artificial Opening (ICD-10-PCS; 2016-06-18)
PROC: 5A1945Z Respiratory Ventilation, 24-96 Consecutive Hours (ICD-10-PCS; 2016-06-20)
DX: J96.01 Acute respiratory failure with hypoxia (principal); G93.5 Compression of brain; N17.0 Acute kidney failure with tubular necrosis; C34.90 Malignant neoplasm of unspecified part of unspecified bronchus or lung; E87.2 Acidosis; E87.0 Hyperosmolality and hypernatremia; C79.31 Secondary malignant neoplasm of brain; J98.11 Atelectasis; R65.10 Systemic inflammatory response syndrome (SIRS) of non-infectious origin without acute organ dysfunction; E87.5 Hyperkalemia; D72.829 Elevated white blood cell count, unspecified; E83.52 Hypercalcemia; I46.9 Cardiac arrest, cause unspecified; J44.9 Chronic obstructive pulmonary disease, unspecified; R56.9 Unspecified convulsions; Z51.5 Encounter for palliative care; Z72.0 Tobacco use; Z80.1 Family history of malignant neoplasm of trachea, bronchus and lung; Z82.49 Family history of ischemic heart disease and other diseases of the circulatory system
CPT/HCPCS: 31500; 36415; 36600; 51702; 70450; 70553; 71010; 72125; 80047; 80048; 80069; 82550; 82553; 82805; 82947; 83735; 84484; 85007; 85027; 85610; 87641; 93005; 94002; 94003; 96365; 96375; C9113; G0481; J0171; J0610; J0692; J1100; J1815; J1953; J2060; J2250; J2704; J3010; J7030; J7042; 99291-25; A9585